=== PATIENT | male | born 1965 | race Caucasian/White ===

== ENCOUNTER 2018-02-22 10:53 | Day surgery (SDC) | payer MEDICARE, OTHER ==
[2018-02-21 10:22] VITALS: BMI 26.2
[2018-02-22 11:34] VITALS: RESP 16; TEMP 99
[2018-02-22 11:59] LABS: Basophils # (A) 0.1 k/uL (0-0.2); Basophils % (A) 0 %; Eosinophils # (A) 0.2 k/uL (0-0.7); Eosinophils % (A) 1 %; HCT 44.9 % (39.0-53.0); HGB 14.8 gm/dL (13.0-17.5); Lymphocytes # (A) 2.1 k/uL (1.0-4.8); Lymphocytes % (A) 13 %; MCH 28.8 pg (25.0-35.0); MCHC 32.9 g/dL (31.0-37.0); MCV 87.6 fL (80.0-100.0); Mean Platelet Volume 6.7; Monocytes # (A) 0.8 k/uL (0-1.0); Monocytes % (A) 5 %; Neutrophils # (A) 13.7 k/uL (1.3-7.7); Neutrophils % (A) 81 %; Platelet Count 356 k/uL (150-450); RBC 5.13 m/uL (4.30-5.90)
[2018-02-22] MEDS ORDERED: LIDOCAINE 1% INJ 10MG/ML (20 ML MDV) SQ ONE (12:23)
[2018-02-22] MEDS ORDERED: LIDOCAINE 1% 20 ML VIAL (10MG/ML) FOR IV START SQ ONE (12:31)
[2018-02-22 14:46] VITALS: BP 102/64; PULSE 69
[2018-02-23] MEDS ORDERED: ERTAPENEM 1 GM in SODIUM CHLORIDE 0.9% 50 ML IVPB ONE (06:00)
--- NOTE | 2018-02-28 11:47 | IR ---
PICC LINE PLACEMENT: HISTORY: Infection requiring long-term antibiotic therapy PROCEDURE: Ultrasound and fluoroscopic guidance of PICC line placement. COMPLICATIONS: None ANESTHESIA: 1. 1% Lidocaine locally. FINDINGS/TECHNIQUE: The procedure was explained to the patient. The risks, complications, benefits and alternatives were discussed and any questions were answered. Informed consent was obtained. The patient was placed supine on the fluoroscopic table and prepped and draped in the usual sterile fas ion. Utilizing a 21 gauge needle and sonographic and fluoroscopic guidance, access in the vein was achieved and there is placement of a 0.018 guidewire. The vein is patent. A 4-F sheath was placed o agapito the guidewire. The guidewire and dilator were removed and a 4-F. PICC line was placed through th e sheath with the tip at the level of the SVC. The sheath was removed, the catheter was flushed and sutured into position. The patient was stable throughout the procedure and remained stable upon disc harge from the Department of Radiology. The vein puncture was patent under ultrasound. A lozano scale image was obtained to document patency of the vein punctured. All elements of the maximal barrier technique were utilized. FLUOROSCOPY TIME: One image submitted and 0.2 minutes of fluoroscopy IMPRESSION: Successful PICC line placement under ultrasound and fluoroscopic guidance.
== END 2018-02-22 13:34 | disposition home health service (06) ==
LOC: CATHCVL 10:53
PROVIDERS: ATTEND Radiology Diagnostic Radiology
DX: M86.10 Other acute osteomyelitis, unspecified site (principal); Q05.9 Spina bifida, unspecified; G82.20 Paraplegia, unspecified; I25.10 Atherosclerotic heart disease of native coronary artery without angina pectoris; I10 Essential (primary) hypertension; F17.210 Nicotine dependence, cigarettes, uncomplicated; E78.5 Hyperlipidemia, unspecified; Z79.2 Long term (current) use of antibiotics; Z98.2 Presence of cerebrospinal fluid drainage device; Z79.899 Other long term (current) drug therapy
CPT/HCPCS: 36569; 76937; 77001; 85025; C1751; C1769; J2001; J1335

== ENCOUNTER → 2018-04-03 | Outpatient (CLI) | payer MEDICARE, OTHER ==
[2018-04-03 10:30] VITALS: BP 113/63; PULSE 60; RESP 16; TEMP 98.1
== END | disposition home or self-care (01) ==
LOC: PROCWHC3 09:54
PROVIDERS: ATTEND Internal Medicine Infectious Disease
DX: T82.49XA Other complication of vascular dialysis catheter, initial encounter (principal)
CPT/HCPCS: 96523

== ENCOUNTER → 2018-05-02 | Outpatient (CLI) | payer MEDICARE, OTHER ==
[~2018-05-02] MED LIST: ALTEPLASE 2 MG VIAL (CATHFLO) IV ONE
[2018-05-02 14:31] VITALS: BP 118/70; PULSE 61; RESP 16; TEMP 98.2
== END | disposition home or self-care (01) ==
LOC: PROCWHC3 13:06
PROVIDERS: ATTEND Internal Medicine Infectious Disease
DX: T82.898A Other specified complication of vascular prosthetic devices, implants and grafts, initial encounter (principal)
CPT/HCPCS: 36593; J2997

== ENCOUNTER → 2018-06-09 | Outpatient (CLI) | payer MEDICARE, OTHER ==
[2018-06-09 14:52] LABS: Basophils # (A) 0.1 k/uL (0-0.2); Basophils % (A) 1 %; Eosinophils # (A) 0.3 k/uL (0-0.7); Eosinophils % (A) 3 %; HCT 46.2 % (39.0-53.0); HGB 14.3 gm/dL (13.0-17.5); Lymphocytes # (A) 2.6 k/uL (1.0-4.8); Lymphocytes % (A) 27 %; MCH 27.7 pg (25.0-35.0); MCHC 30.9 g/dL (31.0-37.0); MCV 89.6 fL (80.0-100.0); Mean Platelet Volume 6.6; Monocytes # (A) 0.5 k/uL (0-1.0); Monocytes % (A) 5 %; Neutrophils # (A) 6.2 k/uL (1.3-7.7); Neutrophils % (A) 63 %; Platelet Count 314 k/uL (150-450); RBC 5.15 m/uL (4.30-5.90); RDW 14.7 % (11.5-15.5); WBC 9.9 k/uL (3.8-10.6)
[2018-06-09 18:50] LABS: Anion Gap 9.8 mmol/L (4.00-12.00); Calcium 9.6 mg/dL (8.7-10.3); Carbon Dioxide 21.2 mmol/L (21.6-31.8); Potassium 4.7 mmol/L (3.5-5.5)
== END | disposition home or self-care (01) ==
LOC: LABWHC1 13:55
PROVIDERS: ATTEND Internal Medicine Infectious Disease
DX: L89.324 Pressure ulcer of left buttock, stage 4 (principal); L89.314 Pressure ulcer of right buttock, stage 4; M86.652 Other chronic osteomyelitis, left thigh
CPT/HCPCS: 36415; 80048; 85025

== ENCOUNTER 2018-11-10 02:04 | Inpatient (IN) | payer MEDICARE, OTHER ==
[2018-11-10 02:43] LABS: Anisocytosis Slight; Basophils % (A) 0 %; Eosinophils # (A) 0.2 k/uL (0-0.7); Eosinophils % (A) 1 %; HCT 51.7 % (39.0-53.0); HGB 16.3 gm/dL (13.0-17.5); Lymphocytes # (A) 0.7 k/uL (1.0-4.8); Lymphocytes % (A) 4 %; MCH 26.3 pg (25.0-35.0); MCHC 31.6 g/dL (31.0-37.0); MCV 83.2 fL (80.0-100.0); Mean Platelet Volume 6.4; Monocytes # (A) 1.7 k/uL (0-1.0); Monocytes % (A) 9 %; Neutrophils # (A) 16.7 k/uL (1.3-7.7); Neutrophils % (A) 85 %; Platelet Count 375 k/uL (150-450); RBC 6.22 m/uL (4.30-5.90); RDW 16.2 % (11.5-15.5); WBC 19.5 k/uL (3.8-10.6)
[2018-11-10] MEDS ORDERED: ONDANSETRON 4 MG/2 ML VIAL IVP PRN (02:57)
[2018-11-10] MEDS ORDERED: MORPHINE SULFATE 4 MG/ML SYRINGE IV PRN (02:57)
[2018-11-10] MEDS ORDERED: NALOXONE 0.4 MG/ML 1 ML VIAL IV PRN (02:57)
--- NOTE | 2018-11-10 03:02 | ED ---
Abdominal Pain HPI - General Chief Complaint: Abdominal Pain Stated Complaint: poss pneumonia, poss bowel blockage Time Seen by Provider: 11/10/18 02:09 Source: EMS Mode of arrival: EMS Limitations: no limitations - History of Present Illness Initial Comments: This patient is 52-year-old man who is transferred here from [facility]. The patient had gone there complaining of upper abdominal pain and also of being short of breath. The symptoms had started in the afternoon. When the patient was seen in the emergency department, it was felt that his abdomen was distended, he was sent for a CAT scan which showed possibility of small bowel obstruction. The patient had an NG tube placed, which he states gave relief of most of his symptoms. The patient's abdominal pain had improved, and his shortness of breath had improved as well. The patient was also given doses of Zosyn and Flagyl then transferred here for admission. On history, the patient does not have previous abdominal surgical history. MD Complaint: abdominal pain -: hour(s) Location: periumbilical Radiation: none Migration to: no migration Severity: severe Quality: aching Consistency: now resolved Improves With: nothing Worsens With: nothing - Related Data Home Medications Medication Instructions Recorded Confirmed Atenolol [Tenormin] 100 mg PO HS 10/23/14 07/31/18 Furosemide [Lasix] 20 mg PO DAILY 10/23/14 07/31/18 Lisinopril-Hctz 10-12.5 mg 1 each PO BID 10/23/14 07/31/18 [Zestoretic 10-12.5] Oxybutynin Chloride [Ditropan XL] 10 mg PO DAILY 10/23/14 07/31/18 Pravastatin Sodium [Pravachol] 40 mg PO DAILY 10/23/14 07/31/18 Potassium Chloride [Klor-Con 20] 20 meq PO DAILY 07/15/17 07/31/18 Allergies Allergy/AdvReac Type Severity Reaction Status Date / Time No Known Allergies Allergy Verified 11/10/18 02:11 Review of Systems ROS Statement: Those systems with pertinent positive or pertinent negative responses have been documented in the HPI. ROS Other: All systems not noted in ROS Statement are negative. Constitutional: Denies: fever, chills Respiratory: Reports: as per HPI, dyspnea. Denies: cough, wheezes, hemoptysis Cardiovascular: Denies: chest pain, palpitations, orthopnea, edema, syncope Gastrointestinal: Reports: abdominal pain, nausea, constipation. Denies: vomiting, diarrhea, melena, hematochezia Genitourinary: Denies: dysuria, hematuria Musculoskeletal: Denies: back pain Skin: Denies: rash Neurological: Denies: headache, weakness, numbness Past Medical History Past Medical History: Coronary Artery Disease (CAD), Hyperlipidemia, Hypertension Additional Past Medical History / Comment(s): wounds-vj buttocks-currently receiving wound tx and antibiotics at [facility],spina bifida, [id number] w/c History of Any Multi-Drug Resistant Organisms: None Reported Past Surgical History: Adenoidectomy, Back Surgery, Tonsillectomy Additional Past Surgical History / Comment(s): lithotripsy, multiple leg,foot and toe surgeries to release tendons, colostomy with reversal as a child, 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 Past Anesthesia/Blood Transfusion Reactions: No Reported Reaction Past Psychological History: No Psychological Hx Reported Smoking Status: Current every day smoker Past Alcohol Use History: None Reported Past Drug Use History: None Reported - Past Family History Sister(s) Family Medical History: Cancer Mother Family Medical History: Coronary Artery Disease (CAD) Father Family Medical History: Myocardial Infarction ([place]) General Exam Limitations: no limitations General appearance: alert, in no apparent distress Head exam: Present: atraumatic, normocephalic Eye exam: Present: normal appearance. Absent: scleral icterus, conjunctival injection ENT exam: Present: mucous membranes dry Neck exam: Present: normal inspection Respiratory exam: Present: normal lung sounds bilaterally. Absent: respiratory distress, wheezes, rales, rhonchi, stridor Cardiovascular Exam: Present: regular rate, normal rhythm, normal heart sounds. Absent: systolic murmur, diastolic murmur, rubs, gallop GI/Abdominal exam: Present: soft. Absent: distended, tenderness, guarding, rebound, rigid, mass Extremities exam: Present: normal inspection, normal capillary refill. Absent: pedal edema, calf tenderness Back exam: Present: normal inspection. Absent: CVA tenderness (R), CVA tenderness (L) Neurological exam: Present: alert Skin exam: Present: warm, dry, intact, normal color. Absent: rash Course Vital Signs 11/10/18 11/10/18 11/10/18 02:08 03:26 04:55 Temperature 99.3 F 98 F Pulse Rate 130 H 140 H 137 H Respiratory 20 18 18 Rate Blood Pressure 133/88 127/89 132/87 O2 Sat by Pulse 92 L 93 L 96 Oximetry Medical Decision Making - Medical Decision Making Patient's 52-year-old man transferred here from [facility] with small bowel obstruction. He has been started on Flagyl and Zosyn there, given the leukocytosis and also concern for possible pneumonia/intra-abdominal infection. Additional workup is performed, given patient's continued tachycardia. Case is discussed with Dr. Cisneros, surgery on-call. Paged Dr. Stafford to discuss case, requested consult to cardiology for the persistent tachycardia - Lab Data Result diagrams: 11/10/18 02:30 11/10/18 02:30 Lab Results 11/10/18 11/10/18 11/10/18 Range/Units 02:30 02:30 02:30 WBC 19.5 H (3.8-10.6) k/uL RBC 6.22 H (4.30-5.90) m/uL Hgb 16.3 (13.0-17.5) gm/dL Hct 51.7 (39.0-53.0) % MCV 83.2 (80.0-100.0) fL MCH 26.3 (25.0-35.0) pg MCHC 31.6 (31.0-37.0) g/dL RDW 16.2 H (11.5-15.5) % Plt Count 375 (150-450) k/uL Neutrophils % 85 % Lymphocytes % 4 % Monocytes % 9 % Eosinophils % 1 % Basophils % 0 % Neutrophils # 16.7 H (1.3-7.7) k/uL Lymphocytes # 0.7 L (1.0-4.8) k/uL Monocytes # 1.7 H (0-1.0) k/uL Eosinophils # 0.2 (0-0.7) k/uL Basophils # 0.0 (0-0.2) k/uL Anisocytosis Slight D-Dimer 1.70 H (<0.60) mg/L FEU Sodium 139 (137-145) mmol/L Potassium 4.6 (3.5-5.1) mmol/L Chloride 103 (98-107) mmol/L Carbon Dioxide 19 L (22-30) mmol/L Anion Gap 17 mmol/L BUN 32 H (9-20) mg/dL Creatinine 0.66 (0.66-1.25) mg/dL Est GFR (CKD-EPI)AfAm >90 (>60 ml/min/1.73 sqM) Est GFR (CKD-EPI)NonAf >90 (>60 ml/min/1.73 sqM) Glucose 142 H (74-99) mg/dL Calcium 10.8 H (8.4-10.2) mg/dL Total Bilirubin 0.8 (0.2-1.3) mg/dL AST 23 (17-59) U/L ALT 43 (21-72) U/L Alkaline Phosphatase 197 H (38-126) U/L Troponin I (0.000-0.034) ng/mL NT-Pro-B Natriuret Pep pg/mL Total Protein 8.7 H (6.3-8.2) g/dL Albumin 5.1 H (3.5-5.0) g/dL 11/10/18 11/10/18 Range/Units 02:30 02:30 WBC (3.8-10.6) k/uL RBC (4.30-5.90) m/uL Hgb (13.0-17.5) gm/dL Hct (39.0-53.0) % MCV (80.0-100.0) fL MCH (25.0-35.0) pg MCHC (31.0-37.0) g/dL RDW (11.5-15.5) % Plt Count (150-450) k/uL Neutrophils % % Lymphocytes % % Monocytes % % Eosinophils % % Basophils % % Neutrophils # (1.3-7.7) k/uL Lymphocytes # (1.0-4.8) k/uL Monocytes # (0-1.0) k/uL Eosinophils # (0-0.7) k/uL Basophils # (0-0.2) k/uL Anisocytosis D-Dimer (<0.60) mg/L FEU Sodium (137-145) mmol/L Potassium (3.5-5.1) mmol/L Chloride (98-107) mmol/L Carbon Dioxide (22-30) mmol/L Anion Gap mmol/L BUN (9-20) mg/dL Creatinine (0.66-1.25) mg/dL Est GFR (CKD-EPI)AfAm (>60 ml/min/1.73 sqM) Est GFR (CKD-EPI)NonAf (>60 ml/min/1.73 sqM) Glucose (74-99) mg/dL Calcium (8.4-10.2) mg/dL Total Bilirubin (0.2-1.3) mg/dL AST (17-59) U/L ALT (21-72) U/L Alkaline Phosphatase (38-126) U/L Troponin I <0.012 (0.000-0.034) ng/mL NT-Pro-B Natriuret Pep 71 pg/mL Total Protein (6.3-8.2) g/dL Albumin (3.5-5.0) g/dL Disposition Clinical Impression: Abdominal pain, Small bowel obstruction, Tachycardia Disposition: ADMITTED IP TO THIS [facility] Condition: Serious
[2018-11-10 03:03] LABS: ALT 43 U/L (21-72); AST 23 U/L (17-59); African American GFR (CKD) >90 (>60 ml/min/1.73 sqM); Albumin 5.1 g/dL (3.5-5.0); Alkaline Phosphatase 197 U/L (38-126); Anion Gap 17 mmol/L; Blood Urea Nitrogen 32 mg/dL (9-20); Calcium 10.8 mg/dL (8.4-10.2); Carbon Dioxide 19 mmol/L (22-30); Chloride 103 mmol/L (98-107); Glucose 142 mg/dL (74-99); Potassium 4.6 mmol/L (3.5-5.1); Sodium 139 mmol/L (137-145); Total Bilirubin 0.8 mg/dL (0.2-1.3); Total Protein 8.7 g/dL (6.3-8.2)
[2018-11-10] MEDS ORDERED: SODIUM CHLORIDE 0.9% 1,000 ML IV ONE (03:12)
--- NOTE | 2018-11-10 03:30 | XR ---
EXAM: XR Chest, 1 View CLINICAL HISTORY: dyspnea TECHNIQUE: Frontal view of the chest. COMPARISON: No relevant prior studies available. FINDINGS: Lungs: Hypoventilatory lungs with bilateral volume loss. Bilateral peribronchial thickening. Nonspecific bilateral interstitial prominence. Pleural space: No pneumothorax. Heart: Prominent cardiomediastinal silhouette and central bronchovascular structures is likely in part due to low lung volumes. Mediastinum: See above. Bones/joints: No acute osseous abnormality. Tubes, lines and devices: Esophagogastric tube terminates in the stomach. Upper abdomen: Distended gas filled stomach. IMPRESSION: 1. Esophagogastric tube terminates in the stomach. 2. Hypoventilatory lungs. Bilateral volume loss. Infection or edema is not excluded.
[2018-11-10] MEDS: SODIUM CHLORIDE 0.9% 1,000 ML IV SCH ×2 (04:52→16:18)
--- NOTE | 2018-11-10 04:59 | CT ---
EXAM: CT Angiography Chest With Intravenous Contrast CLINICAL HISTORY: Pain TECHNIQUE: Axial computed tomographic angiography images of the chest with intravenous contrast using pulmonary embolism protocol. CTDI is 0.085, 0. 085, 1.5, 1.5, 1.5, 1.55, 10.9 mGy and DLP is 385.8 mGy-cm. This CT exam was performed using one or more of the following dose reduction techniques: automated exposure control, adjustment of the mA and/or kV according to patient size, and/or use of iterative reconstruction technique. MIP reconstructed images were created and reviewed. COMPARISON: No relevant prior studies available. FINDINGS: Artifacts: Motion. Pulmonary arteries: No central pulmonary embolus. Aorta: No acute findings. No thoracic aortic aneurysm. Lungs: Bilateral bandlike densities are favored to represent atelectasis. No suspicious pulmonary nodule. Pleural space: Unremarkable. No significant effusion. No pneumothorax. Heart: Unremarkable. No cardiomegaly. No significant pericardial effusion. Bones/joints: No acute fracture. Soft tissues: Unremarkable. Lymph nodes: Unremarkable. No enlarged lymph nodes. Stomach and bowel: Prominent gas and fluid-filled loops of small bowel in the upper abdomen. Tubes, lines and devices: Esophagogastric tube terminates in the stomach. IMPRESSION: No central pulmonary embolus.
[2018-11-10] MEDS: POTASSIUM CHLORIDE ER 20 MEQ TAB.ER PO SCH (07:17)
[2018-11-10] MEDS: ENOXAPARIN 40 MG/0.4 ML SYRINGE SQ SCH (07:19)
[2018-11-10] MEDS: metroNIDAZOLE-NS PMX 500 MG in SALINE 1 100ML.BAG IVPB SCH ×2 (07:20→16:21)
[2018-11-10] MEDS ORDERED: PRAVASTATIN SODIUM 40 MG TAB PO SCH (09:00)
[2018-11-10] MEDS ORDERED: FUROSEMIDE 20 MG TAB PO SCH (09:00)
[2018-11-10] MEDS ORDERED: OXYBUTYNIN 10 MG TAB.ER.24 PO SCH (09:00)
[2018-11-10] MEDS ORDERED: LISINOPRIL-HCTZ 10-12.5 MG 1 EACH TAB PO SCH (09:00)
[2018-11-10] MEDS ORDERED: ACETAMINOPHEN TAB 325 MG TAB PO PRN (11:34)
[2018-11-10] MEDS ORDERED: ATENOLOL 25 MG TAB PO SCH (11:45)
[2018-11-10] MEDS: PIPERACILLIN-TAZOBACTAM 3.375 GM in SODIUM CHLORIDE 0.9% 100 ML IVPB SCH ×2 (12:03→18:12)
--- NOTE | 2018-11-10 14:05 | P.GSCN ---
<Keli Price - Last Filed: 11/10/18 14:04> History of Present Illness Consult date: 11/10/18 Reason for Consult: small bowel obstruction Requesting physician: Edmundo Holm History of present illness: CHIEF COMPLAINT: small bowel obstruction HISTORY OF PRESENT ILLNESS: 52-year-old male who was transferred from [facility] yesterday secondary to small bowel obstruction. Patient examined this morning at the bedside. He reports he was in his usual state of health until yesterday he began having abdominal pain and noticed significant abdominal distention. He reports nausea but no episodes of vomiting. He reports having a loose bowel movement yesterday. Patient with loose bowel movement this morning as well. CT abdomen and pelvis performed at [facility] revealed distended fluid-filled stomach and small bowel loops with relatively gradual transition to more decompressed distal small bowel loops. Differential considerations include enteritis, ileus, or obstruction. Fluid in the colon, can be seen with diarrheal state. Mild rectal wall thickening or underdistention. Small free fluid. NG tube was placed at [place]. Patient reports resolution of abdominal pain and improvement in abdominal distention after NG tube placement. He denies abdominal pain this morning. Denies N/V. PAST MEDICAL HISTORY: See list. PAST SURGICAL HISTORY: See list. MEDICATIONS: See list. ALLERGIES: See list. SOCIAL HISTORY: No illicit drug use. REVIEW OF SYSTEMS: CONSTITUTIONAL: Denies fever or chills. HEENT: Denies blurred vision, vision changes, or eye pain. Denies hemoptysis ENDOCRINE: Denies heat or cold intolerance. CARDIOVASCULAR: Denies chest pain or pressure. RESPIRATORY: Reports shortness of breath. GASTROINTESTINAL: Refer to HPI for pertinent findings. NEURO: Denies history of seizures. PSYCH: No depression or suicidal ideation HEMATOLOGIC: Denies bleeding disorders. LYMPHATIC: The patient denies any lumps and bumps around the neck. GENITOURINARY: Denies any blood in urine or increased urinary frequency. MUSCULOSKELETAL: Denies myalgias. Denies joint swelling. Denies decreased range of motion beyond patients baseline-patient is paraplegic. SKIN: Denies pruitis. Denies rash. PHYSICAL EXAM: VITAL SIGNS: Reviewed. Tachycardic. GENERAL: Well-developed in no acute distress. HEENT: NG to LIS with small amount of bilious drainage. No sclera icterus. Extraocular movements grossly intact. Moist buccal mucosa. Head is atraumatic, normocephalic. Hears conversational speech. No nasal drainage. NECK: Supple without lymphadenopathy. CHEST: Non-labored respirations and equal bilateral excursions. CARDIOVASCULAR: Tachycardic. Palpable 2+ radial pulses. ABDOMEN: Soft. Mild abdominal distention. Nontender. Positive bowel sounds. Patient with old surgical scars to left lower quadrant and right lower quadrant. MUSCULOSKELETAL: Paraplegic. No clubbing, cyanosis or edema. NEUROLOGIC: No focal or lateralizing signs. Cranial nerves II through XII grossly intact. PSYCH: Appropriate affect. Alert and oriented to person, place and time. SKIN: Well perfused. Good skin turgor. LABORATORY DATA: WBC 19.5. Hemoglobin 16.3. D-dimer 1.70. Lactic acid 1.3. ASSESSMENT: 1. Small bowel obstruction 2. Sepsis, present on admission, patient presented with leukocytosis and tachycardia 3. Bilateral lung opacities with right upper lung atelectasis/consolidation. Possible pneumonia 4. History of colostomy with reversal as a child PLAN: 1. Continue antibiotics. Monitor WBC 2. Continue IV fluids 3. DC NG 4. Start clear liquid diet Nurse practitioner note has been reviewed by physician. Signing provider agrees with the documented findings, assessment, and plan of care. Past Medical History Past Medical History: Coronary Artery Disease (CAD), Hyperlipidemia, Hypertension Additional Past Medical History / Comment(s): wounds-vj buttocks-currently receiving wound tx and antibiotics at [facility],spina bifida, [id number] w/c History of Any Multi-Drug Resistant Organisms: None Reported Past Surgical History: Adenoidectomy, Back Surgery, Tonsillectomy Additional Past Surgical History / Comment(s): lithotripsy, multiple leg,foot and toe surgeries to release tendons, colostomy with reversal as a child, 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 Past Anesthesia/Blood Transfusion Reactions: No Reported Reaction Past Psychological History: No Psychological Hx Reported Smoking Status: Current every day smoker Past Alcohol Use History: None Reported Past Drug Use History: None Reported - Past Family History Sister(s) Family Medical History: Cancer Mother Family Medical History: Coronary Artery Disease (CAD) Father Family Medical History: Myocardial Infarction (DE) Medications and Allergies Home Medications Medication Instructions Recorded Confirmed Type Potassium Chloride [Klor-Con 20] 20 meq PO DAILY 07/15/17 11/10/18 History Acetaminophen Tab [Tylenol] 650 mg PO Q4H PRN 11/10/18 11/10/18 History Atenolol 25 mg PO DAILY 11/10/18 11/10/18 History Atorvastatin [Lipitor] 10 mg PO HS 11/10/18 11/10/18 History Famotidine [Pepcid] 20 mg PO DAILY 11/10/18 11/10/18 History Heparin Sodium,Porcine [Heparin 5,000 unit SQ Q8HR 11/10/18 11/10/18 History Sodium] Oxybutynin Xl [Ditropan Xl] 5 mg PO BID@0700,1900 11/10/18 11/10/18 History Sennosides-Docusate Sodium 1 tab PO BID@0700,1700 11/10/18 11/10/18 History [Senokot-S] Allergies Allergy/AdvReac Type Severity Reaction Status Date / Time No Known Allergies Allergy Verified 11/10/18 10:04 Surgical - Exam Vital Signs Temp Pulse Resp BP Pulse Ox 99.3 F 130 H 20 133/88 92 L 11/10/18 02:08 11/10/18 02:08 11/10/18 02:08 11/10/18 02:08 11/10/18 02:08 Results - Labs 11/10/18 02:30 11/10/18 02:30 Abnormal Lab Results - Last 24 Hours (Table) 11/10/18 11/10/18 11/10/18 Range/Units 02:30 02:30 02:30 WBC 19.5 H (3.8-10.6) k/uL RBC 6.22 H (4.30-5.90) m/uL RDW 16.2 H (11.5-15.5) % Neutrophils # 16.7 H (1.3-7.7) k/uL Lymphocytes # 0.7 L (1.0-4.8) k/uL Monocytes # 1.7 H (0-1.0) k/uL D-Dimer 1.70 H (<0.60) mg/L FEU Carbon Dioxide 19 L (22-30) mmol/L BUN 32 H (9-20) mg/dL Glucose 142 H (74-99) mg/dL Calcium 10.8 H (8.4-10.2) mg/dL Alkaline Phosphatase 197 H (38-126) U/L Total Protein 8.7 H (6.3-8.2) g/dL Albumin 5.1 H (3.5-5.0) g/dL Diabetes panel 11/10/18 Range/Units 02:30 Sodium 139 (137-145) mmol/L Potassium 4.6 (3.5-5.1) mmol/L Chloride 103 (98-107) mmol/L Carbon Dioxide 19 L (22-30) mmol/L BUN 32 H (9-20) mg/dL Creatinine 0.66 (0.66-1.25) mg/dL Glucose 142 H (74-99) mg/dL Calcium 10.8 H (8.4-10.2) mg/dL AST 23 (17-59) U/L ALT 43 (21-72) U/L Alkaline Phosphatase 197 H (38-126) U/L Total Protein 8.7 H (6.3-8.2) g/dL Albumin 5.1 H (3.5-5.0) g/dL Calcium panel 11/10/18 Range/Units 02:30 Calcium 10.8 H (8.4-10.2) mg/dL Albumin 5.1 H (3.5-5.0) g/dL Pituitary panel 11/10/18 Range/Units 02:30 Sodium 139 (137-145) mmol/L Potassium 4.6 (3.5-5.1) mmol/L Chloride 103 (98-107) mmol/L Carbon Dioxide 19 L (22-30) mmol/L BUN 32 H (9-20) mg/dL Creatinine 0.66 (0.66-1.25) mg/dL Glucose 142 H (74-99) mg/dL Calcium 10.8 H (8.4-10.2) mg/dL Adrenal panel 11/10/18 Range/Units 02:30 Sodium 139 (137-145) mmol/L Potassium 4.6 (3.5-5.1) mmol/L Chloride 103 (98-107) mmol/L Carbon Dioxide 19 L (22-30) mmol/L BUN 32 H (9-20) mg/dL Creatinine 0.66 (0.66-1.25) mg/dL Glucose 142 H (74-99) mg/dL Calcium 10.8 H (8.4-10.2) mg/dL Total Bilirubin 0.8 (0.2-1.3) mg/dL AST 23 (17-59) U/L ALT 43 (21-72) U/L Alkaline Phosphatase 197 H (38-126) U/L Total Protein 8.7 H (6.3-8.2) g/dL Albumin 5.1 H (3.5-5.0) g/dL <Caroline White - Last Filed: 11/10/18 16:55> History of Present Illness History of present illness: At time of assessment, patient is passing moderate flatus and had a large bowel movement without blood witnessed by me. Patient clinically reports improvement of symptoms. NG tube discontinued by me at bedside. May start clear liquid diet. Surgical - Exam Vital Signs Temp Pulse Resp BP Pulse Ox 99.3 F 130 H 20 133/88 92 L 11/10/18 02:08 11/10/18 02:08 11/10/18 02:08 11/10/18 02:08 11/10/18 02:08 Results - Labs 11/10/18 02:30 11/10/18 02:30 Abnormal Lab Results - Last 24 Hours (Table) 11/10/18 11/10/18 11/10/18 Range/Units 02:30 02:30 02:30 WBC 19.5 H (3.8-10.6) k/uL RBC 6.22 H (4.30-5.90) m/uL RDW 16.2 H (11.5-15.5) % Neutrophils # 16.7 H (1.3-7.7) k/uL Lymphocytes # 0.7 L (1.0-4.8) k/uL Monocytes # 1.7 H (0-1.0) k/uL D-Dimer 1.70 H (<0.60) mg/L FEU Carbon Dioxide 19 L (22-30) mmol/L BUN 32 H (9-20) mg/dL Glucose 142 H (74-99) mg/dL Calcium 10.8 H (8.4-10.2) mg/dL Alkaline Phosphatase 197 H (38-126) U/L Total Protein 8.7 H (6.3-8.2) g/dL Albumin 5.1 H (3.5-5.0) g/dL Diabetes panel 11/10/18 Range/Units 02:30 Sodium 139 (137-145) mmol/L Potassium 4.6 (3.5-5.1) mmol/L Chloride 103 (98-107) mmol/L Carbon Dioxide 19 L (22-30) mmol/L BUN 32 H (9-20) mg/dL Creatinine 0.66 (0.66-1.25) mg/dL Glucose 142 H (74-99) mg/dL Calcium 10.8 H (8.4-10.2) mg/dL AST 23 (17-59) U/L ALT 43 (21-72) U/L Alkaline Phosphatase 197 H (38-126) U/L Total Protein 8.7 H (6.3-8.2) g/dL Albumin 5.1 H (3.5-5.0) g/dL Calcium panel 11/10/18 Range/Units 02:30 Calcium 10.8 H (8.4-10.2) mg/dL Albumin 5.1 H (3.5-5.0) g/dL Pituitary panel 11/10/18 Range/Units 02:30 Sodium 139 (137-145) mmol/L Potassium 4.6 (3.5-5.1) mmol/L Chloride 103 (98-107) mmol/L Carbon Dioxide 19 L (22-30) mmol/L BUN 32 H (9-20) mg/dL Creatinine 0.66 (0.66-1.25) mg/dL Glucose 142 H (74-99) mg/dL Calcium 10.8 H (8.4-10.2) mg/dL Adrenal panel 11/10/18 Range/Units 02:30 Sodium 139 (137-145) mmol/L Potassium 4.6 (3.5-5.1) mmol/L Chloride 103 (98-107) mmol/L Carbon Dioxide 19 L (22-30) mmol/L BUN 32 H (9-20) mg/dL Creatinine 0.66 (0.66-1.25) mg/dL Glucose 142 H (74-99) mg/dL Calcium 10.8 H (8.4-10.2) mg/dL Total Bilirubin 0.8 (0.2-1.3) mg/dL AST 23 (17-59) U/L ALT 43 (21-72) U/L Alkaline Phosphatase 197 H (38-126) U/L Total Protein 8.7 H (6.3-8.2) g/dL Albumin 5.1 H (3.5-5.0) g/dL
--- NOTE | 2018-11-10 14:53 | CONS ---
CONSULTATION This patient is seen in consultation for the evaluation of sinus tachycardia. Patient's electronic medical records reviewed. This patient was transferred from [facility] with a complaint of upper abdominal pain and abdominal distention as well as shortness of breath. The patient's symptoms started in the afternoon. He did not had any significant nausea or vomiting. CAT scan of the abdomen showed possible small bowel obstruction. Patient had a NG tube placed in which gave him complete relief of the pain and subsequently he was transferred over here. Patient's NG tube is discontinued. He has been on antibiotics. He denies any fever or chills. Denies any cough. Denies any shortness of breath. The patient does not have any cardiac history of diabetes or hypertension. Patient does not have any prior cardiac history. Patient denies any history of myocardial infarction. Patient has been on atenolol and lisinopril for possible high blood pressure. PAST MEDICAL HISTORY: Includes a history of hypertension, hyperlipidemia, history of spina bifida, myelodysplasia and paraplegia, appendicectomy, back surgery, tonsillectomy, lithotripsy, multiple leg, foot and toe surgeries. PHYSICAL EXAMINATION: At present reveals a 52-year-old gentleman who does not appear to be in any acute distress. Patient had a low-grade temperature of 99, heart rate remains in the range of 130 to 140. HEENT and neck examination is negative. Chest is symmetrical. Heart, the first and second heart sounds are normal. No murmurs are noted. Lungs are clinically clear to auscultation and percussion. Abdomen is soft. Extremities, there is no evidence of any leg edema. Patient's electrolytes are normal, creatinine is 0.6 and white count is 19,500. Patient's D-dimer was elevated and lactic acid level was 1.7. Patient's proBNP level is 71. Chest x-ray does not show any evidence of significant failure. CT scan of the chest was negative for pulmonary embolism. FINAL IMPRESSION: This patient has a persistent sinus tachycardia which is difficult to explain. Patient has a history of hypertension and has been on beta andrea and JORGE inhibitor. The patient is not in any overt heart failure. His BNP level is normal. Whether this is due to underlying hypovolemia or an infection is a possibility. RECOMMENDATIONS: We will obtain 2 blood cultures. Continue IV fluids at 100 mL/hour. We will discontinue atenolol and start the patient on Lopressor 25 mg q.8 hourly and T4 and TSH will be obtained. Echo and Doppler study will be done to assess the left ventricular systolic function. AUR[facility]A / SANTOS: [id number] /
[2018-11-10] MEDS: METOPROLOL TARTRATE 25 MG TAB PO SCH ×2 (16:21→22:45)
[2018-11-10] MEDS: SENNOSIDES-DOCUSATE SODIUM 1 EACH TAB PO SCH (16:37)
[2018-11-10 16:51] LABS: T4, Free (Free Thyroxine) 1.42 ng/dL (0.78-2.19)
--- NOTE | 2018-11-10 20:58 | P.HPIM ---
History of Present Illness H&P Date: 11/10/18 Chief Complaint: Small bowel obstruction Presenting complaint: Abdominal pain History of present complaint: This is a very pleasant 52-year-old patient who follows Dr. oJse Cano. Chronic stable medical conditions include hypertension, hyperlipidemia, spinal bifida. Patient's cannot use his legs and has no sensation. Patient has a chronic catheter and bowels have to be manually evacuated. Patient also had buttock wounds that had surgery done by Dr. Trujillo. Patient now presents with one-day history of increasing abdominal pain. No fever no chills. Some nausea. This is followed a small bowel obstruction. NG tube was placed. Patient initially was at [facility] where he was transferred here. Dr. White from general surgery was consulted. Patient lives with his niece and a brother. The niece provides care for him. Patient is feeling better off the use of NG tube and suction. Review of systems: GEN.: Tired EYES: None HEENT: None NECK: None RESPIRATORY: None CARDIOVASCULAR: None GASTROINTESTINAL: As above GENITOURINARY: None MUSCULOSKELETAL: None LYMPHATICS: None HEMATOLOGICAL: None PSYCHIATRY: Anxious NEUROLOGICAL: Contractures of both lower extremity with no sensation patient has no control of the urine and bowel Past medical history include: Hypertension, hyperlipidemia, skin graft on the buttocks, spinal bifida, with paraplegia, wheelchair bound, Social history: Smokes half pack daily for about 30 years stopped about 2 weeks ago. No alcohol. Lives with his niece and the brother. Physical examination: VITAL SIGNS: 99.3, 130, respiratory, blood pressure 133/88, and 92% room air GENERAL: Average built, lying in bed, uncomfortable. EYES: Pupils equal. Conjunctiva normal. HEENT: External appearance of nose and ears normal, oral cavity grossly dry with NG tube in place. NECK: JVD not raised; masses not palpable. HEART: First and second heart sounds are normal; no edema. LUNGS: Respiratory rate normal; clear to auscultation. ABDOMEN: Soft, generalized tenderness mild distention, liver spleen not palpable, no masses palpable. PSYCH: Alert and oriented x3; mood and affect protectionl. NEUROLOGICAL: Cranial nerves grossly intact; no facial asymmetry, contraction of the lower limbs with no sensation. LYMPHATICS: No lymph nodes palpable in the axilla and neck Investigations, the clinical context: White count 19.5, hemoglobin 16.3, platelets 375, potassium 4.6, BUN 32, creatinine 0.66 Computed tomography scan from the outside facility showed evidence of gastric d istention and small bowel obstruction EKG tracing personally reviewed by me shows sinus tachycardia Assessment: Acute small bowel obstruction in a patient with prior abdominal surgery with NG tube in place -Essential hypertension -Hyperlipidemia -Chronic spina bifida with chronic paraplegia -Chronic medical debility patient is wheelchair bound -Leukocytosis from stress -Sinus tachycardia probably from fluid deficit -Chronic neurogenic constipation, for which patient is scheduled manual evacuati on -Chronic neurogenic bladder, with chronic Porter catheter -Atelectasis. Does not have pneumonia. Plan: NG tube in place. IV fluids are started. Because of persistent tachycardia , cardiology was consulted. Care was discussed with the patient. Question were answered. Dr. White results of the case. Patient is getting IV fluids, increase the same. Past Medical History Past Medical History: Coronary Artery Disease (CAD), Hyperlipidemia, Hypertens ion Additional Past Medical History / Comment(s): wounds-vj buttocks-currently receiving wound tx and antibiotics at [facility],spina bifida, [id number] w/c History of Any Multi-Drug Resistant Organisms: None Reported Past Surgical History: Adenoidectomy, Back Surgery, Tonsillectomy Additional Past Surgical History / Comment(s): lithotripsy, multiple leg,foot and toe surgeries to release tendons, colostomy with reversal as a child, 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 Past Anesthesia/Blood Transfusion Reactions: No Reported Reaction Past Psychological History: No Psychological Hx Reported Smoking Status: Current every day smoker Past Alcohol Use History: None Reported Past Drug Use History: None Reported - Past Family History Sister(s) Family Medical History: Cancer Mother Family Medical History: Coronary Artery Disease (CAD) Father Family Medical History: Myocardial Infarction (NH) Medications and Allergies Home Medications Medication Instructions Recorded Confirmed Type Potassium Chloride [Klor-Con 20] 20 meq PO DAILY 07/15/17 11/10/18 History Acetaminophen Tab [Tylenol] 650 mg PO Q4H PRN 11/10/18 11/10/18 History Atenolol 25 mg PO DAILY 11/10/18 11/10/18 History Atorvastatin [Lipitor] 10 mg PO HS 11/10/18 11/10/18 History Famotidine [Pepcid] 20 mg PO DAILY 11/10/18 11/10/18 History Heparin Sodium,Porcine [Heparin 5,000 unit SQ Q8HR 11/10/18 11/10/18 History Sodium] Oxybutynin Xl [Ditropan Xl] 5 mg PO BID@0700,1900 11/10/18 11/10/18 History Sennosides-Docusate Sodium 1 tab PO BID@0700,1700 11/10/18 11/10/18 History [Senokot-S] Allergies Allergy/AdvReac Type Severity Reaction Status Date / Time No Known Allergies Allergy Verified 11/10/18 10:04 Physical Exam Vitals: Vital Signs Temp Pulse Pulse Resp BP BP BP 11/10/18 16:17 98.8 F 120 H 16 118/73 11/10/18 08:55 99.3 F 150 H 128/84 11/10/18 06:09 99.2 F 143 H 16 124/81 11/10/18 04:55 98 F 137 H 18 132/87 11/10/18 03:26 140 H 18 127/89 11/10/18 02:08 99.3 F 130 H 20 133/88 Pulse Ox 11/10/18 16:17 95 11/10/18 08:55 94 L 11/10/18 06:09 94 L 11/10/18 04:55 96 11/10/18 03:26 93 L 11/10/18 02:08 92 L Intake and Output 11/10/18 11/10/18 11/10/18 06:59 14:59 22:59 Intake Total 800 240 Output Total 1100 Balance -1100 800 240 Intake: IV 800 Sodium Chloride 0.9% 1, 800 000 ml @ 100 mls/hr IV . Q10H [facility] Rx#:[id number] Oral 240 Output: Gastric Drainage 1100 Other: Voiding Method Indwelling Catheter Indwelling Catheter # Bowel Movements 1 1 Weight 58.967 kg Results CBC & Chem 7: 11/10/18 02:30 11/10/18 02:30 Labs: Abnormal Lab Results - Last 24 Hours (Table) 11/10/18 11/10/18 11/10/18 Range/Units 02:30 02:30 02:30 WBC 19.5 H (3.8-10.6) k/uL RBC 6.22 H (4.30-5.90) m/uL RDW 16.2 H (11.5-15.5) % Neutrophils # 16.7 H (1.3-7.7) k/uL Lymphocytes # 0.7 L (1.0-4.8) k/uL Monocytes # 1.7 H (0-1.0) k/uL D-Dimer 1.70 H (<0.60) mg/L FEU Carbon Dioxide 19 L (22-30) mmol/L BUN 32 H (9-20) mg/dL Glucose 142 H (74-99) mg/dL Calcium 10.8 H (8.4-10.2) mg/dL Alkaline Phosphatase 197 H (38-126) U/L Total Protein 8.7 H (6.3-8.2) g/dL Albumin 5.1 H (3.5-5.0) g/dL Thrombosis Risk Factor Assmnt - Choose All That Apply Any of the Below Risk Factors Present?: Yes Each Factor Represents 1 point: Age 41-60 years, Medical pt on bed rest Other Risk Factors: No Thrombosis Risk Factor Assessment Total Risk Factor Score: 2 Thrombosis Risk Factor Assessment Level: Low Risk
[2018-11-10] MEDS ORDERED: ATENOLOL 50 MG TAB PO SCH (21:00)
[2018-11-10] MEDS ORDERED: ATORVASTATIN 10 MG TAB PO SCH (21:00)
[2018-11-10] MEDS: LACTATED RINGERS 1,000 ML IV SCH (21:35)
[2018-11-11] MEDS: metroNIDAZOLE-NS PMX 500 MG in SALINE 1 100ML.BAG IVPB SCH ×3 (00:31→16:06)
[2018-11-11] MEDS: PIPERACILLIN-TAZOBACTAM 3.375 GM in SODIUM CHLORIDE 0.9% 100 ML IVPB SCH ×2 (01:42→09:00)
[2018-11-11] MEDS: LACTATED RINGERS 1,000 ML IV SCH ×2 (04:37→12:19)
[2018-11-11] MEDS: METOPROLOL TARTRATE 25 MG TAB PO SCH (06:28)
[2018-11-11] MEDS ORDERED: OXYBUTYNIN XL 5 MG TAB.ER.24 PO SCH (07:00)
[2018-11-11 08:17] LABS: African American GFR (CKD) >90 (>60 ml/min/1.73 sqM); Anion Gap 11 mmol/L; Blood Urea Nitrogen 23 mg/dL (9-20); Calcium 8.6 mg/dL (8.4-10.2); Carbon Dioxide 19 mmol/L (22-30); Chloride 108 mmol/L (98-107); Glucose 96 mg/dL (74-99); Potassium 2.9 mmol/L (3.5-5.1); Sodium 138 mmol/L (137-145)
--- NOTE | 2018-11-11 08:26 | ECHOF ---
Referral Reason:tachycardia MEASUREMENTS -------- HEIGHT: 157.5 cm WEIGHT: 59.0 kg BP: 128/84 RVIDd: 2.4 cm (< 3.3) IVSd: 1.1 cm (0.6 - 1.1) LVIDd: 4.1 cm (3.9 - 5.3) LVPWd: 1.0 cm (0.6 - 1.1) IVSs: 1.2 cm LVIDs: 2.9 cm LVPWs: 1.4 cm LA Diam: 3.3 cm (2.7 - 3.8) LAESV Index (A-L): 18.20 ml/m Ao Diam: 3.3 cm (2.0 - 3.7) AV Cusp: 1.6 cm (1.5 - 2.6) MV EXCURSION: 18.829 mm (> 18.000) MV EF SLOPE: 128 mm/s (70 - 150) EPSS: 0.9 cm MV E Omkar: 1.12 m/s MV DecT: 147 ms MV A Omkar: 1.21 m/s MV E/A Ratio: 0.92 FINDINGS -------- Resting tachycardia (HR>100bpm). This was a technically adequate study. The left ventricular size is normal. There is borderline concentric left ventricular hypertrophy. Overall left ventricular systolic function is normal with, an EF between 60 - 65 %. The right ventricle is normal in size. Normal LA size by volume 22+/-6 ml/m2. The right atrium is normal in size. Interatrial and interventricular septum intact. The aortic valve is trileaflet and appears structurally normal. The mitral valve is normal. The tricuspid valve appears structurally normal. The pulmonic valve was not well visualized. The aortic root size is normal. IVC Not well visulized. There is no pericardial effusion. CONCLUSIONS -------- 1. Resting tachycardia (HR>100bpm). 2. This was a technically adequate study. 3. The left ventricular size is normal. 4. There is borderline concentric left ventricular hypertrophy. 5. Overall left ventricular systolic function is normal with, an EF between 60 - 65 %. 6. The right ventricle is normal in size. 7. Normal LA size by volume 22+/-6 ml/m2. 8. The right atrium is normal in size. 9. Interatrial and interventricular septum intact. 10. The aortic valve is trileaflet and appears structurally normal. 11. The mitral valve is normal. 12. The tricuspid valve appears structurally normal. 13. The pulmonic valve was not well visualized. 14. The aortic root size is normal. 15. IVC Not well visulized. 16. There is no pericardial effusion. PRESSER FIRST: Esthela Knowles RDCS
[2018-11-11 08:35] LABS: Anisocytosis Slight; Basophils # (A) 0.1 k/uL (0-0.2); Basophils % (A) 1 %; Eosinophils # (A) 0.5 k/uL (0-0.7); Eosinophils % (A) 6 %; HCT 39.5 % (39.0-53.0); Hypochromasia Slight; Lymphocytes # (A) 0.8 k/uL (1.0-4.8); Lymphocytes % (A) 10 %; MCH 27.6 pg (25.0-35.0); MCHC 33.2 g/dL (31.0-37.0); MCV 83.1 fL (80.0-100.0); Mean Platelet Volume 7.6; Monocytes # (A) 1.2 k/uL (0-1.0); Monocytes % (A) 15 %; Neutrophils # (A) 5.2 k/uL (1.3-7.7); Neutrophils % (A) 66 %; Platelet Count 274 k/uL (150-450); RBC 4.76 m/uL (4.30-5.90); RDW 16.6 % (11.5-15.5); WBC 7.9 k/uL (3.8-10.6)
[2018-11-11 08:43] LABS: HGB 13.1 gm/dL (13.0-17.5)
[2018-11-11] MEDS: ENOXAPARIN 40 MG/0.4 ML SYRINGE SQ SCH (09:00)
[2018-11-11] MEDS: POTASSIUM CHLORIDE ER 20 MEQ TAB.ER PO SCH ×7 (09:00→16:06)
[2018-11-11] MEDS ORDERED: FAMOTIDINE 20 MG TAB PO SCH (09:00)
[2018-11-11] MEDS: SENNOSIDES-DOCUSATE SODIUM 1 EACH TAB PO SCH ×2 (09:00→09:08)
[2018-11-11 09:01] VITALS: BP 140/83; PULSE 127; RESP 15; TEMP 98.2
[2018-11-11] MEDS ORDERED: Potassium Replacement Protocol 1 EACH MISC MISCELLANE PRN ×2 (09:34→11:57)
--- NOTE | 2018-11-11 10:38 | P.PN ---
Subjective Progress Note Date: 11/11/18 CHIEF COMPLAINT: Small bowel obstruction HISTORY OF PRESENT ILLNESS: The patient is a 52-year-old male with paraplegia who presented with acute onset small bowel obstruction. He has history of multiple abdominal surgeries. His abdominal pain is completely resolved. He is tolerating diet. He is passing flatus and having bowel movements. ROS: No reports of nausea and vomiting. No fevers or chills. No new chest pain. No productive sputum PHYSICAL EXAM: VITAL SIGNS: Reviewed CONSTITUTIONAL: Well developed and in no acute distress. EYES: Conjuctivae without sclera icterus. Extraocular movements grossly intact. HEAD, EARS, NOSE, THROAT: Moist buccal mucosa. Head is atraumatic, normoce phalic. Hears conversational speech. No nasal drainage. NECK: Supple. No thyroidomegaly. RESPIRATORY: Non-labored respirations and equal bilateral excursions. CARDIOVASCULAR: Palpable 2+ radial pulses. Regular rate. Regular rhythm. ABDOMEN: Soft. No peritonitis. Nondistended. MUSCULOSKELETAL: Paraplegia. SKIN: Good skin turgor. Well perfused. NEUROLOGIC: Cranial nerves I through XII grossly intact. No focal or lateralizing signs. Paraplegia PSYCH: Appropriate affect. Alert and oriented to person, place and time. CLINCAL LABS: White blood cell count normal ASSESSMENT: 1. Small bowel obstruction PLAN: 1. Diet as tolerated 2. Agreeable for discharge. Objective - Vital Signs Vital signs: Vital Signs Temp 98.2 F 11/11/18 07:00 Pulse 127 H 11/11/18 07:00 Resp 15 11/11/18 07:00 BP 140/83 11/11/18 07:00 Pulse Ox 93 L 11/11/18 07:00 Intake & Output 11/10/18 11/11/18 11/11/18 18:59 06:59 18:59 Intake Total 1040 1350 100 Balance 1040 1350 100 Intake: IV 800 Sodium Chloride 0.9% 1, 800 000 ml @ 100 mls/hr IV . Q10H [facility] Rx#:[id number] Intake, IV Titration 1350 Amount Lactated Ringers 1,000 ml 1050 @ 150 mls/hr IV .Q6H40M [facility] Rx#:[id number] Sodium Chloride 0.9% 1, 300 000 ml @ 100 mls/hr IV . Q10H [facility] Rx#:[id number] Oral 240 100 Other: Voiding Method Indwelling Catheter Indwelling Catheter # Bowel Movements 1 1 2 - Labs CBC & Chem 7: 11/11/18 07:23 11/11/18 07:23 Labs: Abnormal Lab Results - Last 24 Hours (Table) 11/11/18 11/11/18 Range/Units 07:23 07:23 RDW 16.6 H (11.5-15.5) % Lymphocytes # 0.8 L (1.0-4.8) k/uL Monocytes # 1.2 H (0-1.0) k/uL Potassium 2.9 L (3.5-5.1) mmol/L Chloride 108 H (98-107) mmol/L Carbon Dioxide 19 L (22-30) mmol/L BUN 23 H (9-20) mg/dL Creatinine 0.53 L (0.66-1.25) mg/dL
[2018-11-11] MEDS ORDERED: METOPROLOL TARTRATE 25 MG TAB PO ONE (12:15)
--- NOTE | 2018-11-11 13:09 | P.PN ---
Subjective Progress Note Date: 11/11/18 This is a 52-year-old male with past medical history of spina bifida with chronic decubitus ulcer and osteomyelitis to the sacral area status post recent flap procedure done at [facility] with Dr. Trujillo. Patient is currently residing at extended care facility. Patient was brought into the hospital due to upper abdominal pain and distention thought to be as partial bowel obstruction. He is status post NG tube placement and subsequent removal with improvement of his symptoms. Patient's tolerating diet with no nausea or vomiting. He is passing gas and had a bowel movement. Patient has been cleared by general surgery for transfer back to his extended care facility. Cardiology has been asked to see the patient regarding persistent sinus tachycardia. Yesterday he was started on Lopressor 25 mg every 8 hours. This morning his heart rate is running in the 120s with any activity but at rest he will be at about 100. Blood pressure 140/83 and pulse ox 93% on room air. Echocardiogram reveals EF of 60-65%. TSH 1.430, free T4 1 0.42. Potassium is 2.9 and will be replaced, creatinine 0.53. Patient denies having any chest pain, shortness of breath, palpitations. Gen: This is a 52-year-old male. He is resting in bed appears to be comfortable and in no acute distress. HEENT: Head is atraumatic, normocephalic. Pupils equal, round. Sclerae is anicteric. NECK: Supple. No JVD. No lymphadenopathy. No thyromegaly. LUNGS: Clear to auscultation. No wheezes or rhonchi. No intercostal retractions. HEART: Regular rate and rhythm. No murmur. Tachycardic. ABDOMEN: Soft. Bowel sounds are present. No masses. No tenderness. Porter catheter draining clear elie urine. EXTREMITIES: No pedal edema. No calf tenderness. NEUROLOGICAL: Patient is awake, alert and oriented x3. Paraplegia noted. Assessment: Sinus tachycardia, improved from yesterday. Thyroid studies are normal and no structural deformities found on echocardiogram. Patient may have underlying autonomic dysfunction secondary to his spina bifida contributing to resting tachycardia. Plan: Increase Lopressor to 50 mg orally every 8 hours. Patient is [facility] perspective. Further recommendations to follow based upon clinical course. Nurse practitioner note has been reviewed, I agree with documented findings and plan of care. Patient was seen and examined. Objective - Vital Signs Vital signs: Vital Signs Temp 98.2 F 11/11/18 07:00 Pulse 127 H 11/11/18 07:00 Resp 15 11/11/18 07:00 BP 140/83 11/11/18 07:00 Pulse Ox 93 L 11/11/18 07:00 Intake & Output 11/10/18 11/11/18 11/11/18 18:59 06:59 18:59 Intake Total 1040 1350 100 Balance 1040 1350 100 Intake: IV 800 Sodium Chloride 0.9% 1, 800 000 ml @ 100 mls/hr IV . Q10H [facility] Rx#:[id number] Intake, IV Titration 1350 Amount Lactated Ringers 1,000 ml 1050 @ 150 mls/hr IV .Q6H40M [facility] Rx#:[id number] Sodium Chloride 0.9% 1, 300 000 ml @ 100 mls/hr IV . Q10H [facility] Rx#:[id number] Oral 240 100 Other: Voiding Method Indwelling Catheter Indwelling Catheter Indwelling Catheter # Bowel Movements 1 1 3 - Labs CBC & Chem 7: 11/11/18 07:23 11/11/18 07:23 Labs: Abnormal Lab Results - Last 24 Hours (Table) 11/11/18 11/11/18 Range/Units 07:23 07:23 RDW 16.6 H (11.5-15.5) % Lymphocytes # 0.8 L (1.0-4.8) k/uL Monocytes # 1.2 H (0-1.0) k/uL Potassium 2.9 L (3.5-5.1) mmol/L Chloride 108 H (98-107) mmol/L Carbon Dioxide 19 L (22-30) mmol/L BUN 23 H (9-20) mg/dL Creatinine 0.53 L (0.66-1.25) mg/dL
--- NOTE | 2018-11-11 13:55 | P.DS ---
Providers Date of admission: 11/10/18 02:57 Expected date of discharge: 11/11/18 Attending physician: Shamar Stafford Consults: 11/10/18 02:59 Consult Physician Routine Consulting Provider: Caroline White Consult Reason/Comments: small bowel obstruction Do you want consulting provider notified?: Already Contacted 11/10/18 06:50 Consult Physician Routine Consulting Provider: Vinay Sim Consult Reason/Comments: tachycardia Do you want consulting provider notified?: Yes Primary care physician: Jose Cano Hospital Course: Discharge diagnosis: Acute small bowel obstruction in a patient with prior abdominal surgery treated with NG tube in place -Essential hypertension -Hyperlipidemia -Chronic spina bifida with chronic paraplegia -Chronic medical debility patient is wheelchair bound -Leukocytosis from stress -Sinus tachycardia probably from fluid deficit -Chronic neurogenic constipation, for which patient is scheduled manual evacuation -Chronic neurogenic bladder, with chronic Porter catheter -Atelectasis. Does not have pneumonia. -Hypokalemia Hospital course: This is a very pleasant 52-year-old patient who follows Dr. Jose Cano. Chronic stable medical conditions include hypertension, hyperlipidemia, spinal bifida. Patient's cannot use his legs and has no sensation. Patient has a chronic catheter and bowels have to be manually evacuated. Patient also had buttock wounds that had surgery done by Dr. Trujillo. Patient now presents with one-day history of increasing abdominal pain. No fever no chills. Some nausea. This is followed a small bowel obstruction. NG tube was placed. Patient initially was at [facility] where he was transferred here. Dr. White from general surgery was consulted. Patient lives with his niece and a brother. The niece provides care for him. Patient is feeling better off the use of NG tube and suction. Responded well. NG tube was taken out. Was given clear liquids. Did have a bowel movement. Seen by Dr. Cisneros today, okay TO be discharged. Potassium is being replaced. Consultants: Dr. Neftali Cisneros from general surgery Dr. VC Moran from cardiology Physical examination: VITAL SIGNS: Blood pressure 140/83 pulse 108 pulse ox 93% room air GENERAL: Average built, lying in bed, comfortable EYES: Pupils equal. Conjunctiva normal. HEENT: External appearance of nose and ears normal, oral cavity grossly dry with NG tube in place. NECK: JVD not raised; masses not palpable. HEART: First and second heart sounds are normal; no edema. LUNGS: Respiratory rate normal; clear to auscultation. ABDOMEN: Soft, nontender, distention gone down bowel sounds present, liver spleen not palpable, no masses palpable. PSYCH: Alert and oriented x3; mood and affect protectionl. NEUROLOGICAL: Cranial nerves grossly intact; no facial asymmetry, contraction of the lower limbs with no sensation. Investigations, the clinical context: Potassium 2.9, patient received a total of 120 MB choose a potassium today and repeat potassium pending Computed tomography scan from the outside facility showed evidence of gastric distention and small bowel obstruction EKG tracing personally reviewed by me shows sinus tachycardia 2-D echo shows EF of 60-65%. Disposition: [facility] Patient Condition at Discharge: Stable Plan - Discharge Summary New Discharge Prescriptions: No Action Potassium Chloride [Klor-Con 20] 20 meq PO DAILY Sennosides-Docusate Sodium [Senokot-S] 1 tab PO BID@0700,1700 Heparin Sodium,Porcine [Heparin Sodium] 5,000 unit SQ Q8HR Oxybutynin Xl [Ditropan Xl] 5 mg PO BID@0700,1900 Famotidine [Pepcid] 20 mg PO DAILY Atorvastatin [Lipitor] 10 mg PO HS Atenolol 25 mg PO DAILY Acetaminophen Tab [Tylenol] 650 mg PO Q4H PRN PRN Reason: PAIN/FEVER Discharge Medication List Potassium Chloride [Klor-Con 20] 20 meq PO DAILY 07/15/17 [History] Acetaminophen Tab [Tylenol] 650 mg PO Q4H PRN 11/10/18 [History] Atenolol 25 mg PO DAILY 11/10/18 [History] Atorvastatin [Lipitor] 10 mg PO HS 11/10/18 [History] Famotidine [Pepcid] 20 mg PO DAILY 11/10/18 [History] Heparin Sodium,Porcine [Heparin Sodium] 5,000 unit SQ Q8HR 11/10/18 [History] Oxybutynin Xl [Ditropan Xl] 5 mg PO BID@0700,1900 11/10/18 [History] Sennosides-Docusate Sodium [Senokot-S] 1 tab PO BID@0700,1700 11/10/18 [History] Follow up Appointment(s)/Referral(s): Jose Cano MD [Primary Care Provider] - 1-2 days
[2018-11-11] MEDS ORDERED: METOPROLOL TARTRATE 50 MG TAB PO SCH (16:00)
== END 2018-11-11 17:50 | DRG 389 ==
LOC: EC 02:04 → 4MS4W 02:57 → 4SSUR 07:50
PROVIDERS: ADMIT Hospitalist; ATTEND Hospitalist
DX: K56.609 Unspecified intestinal obstruction, unspecified as to partial versus complete obstruction (principal); G82.20 Paraplegia, unspecified; J98.11 Atelectasis; E78.5 Hyperlipidemia, unspecified; E87.6 Hypokalemia; F17.200 Nicotine dependence, unspecified, uncomplicated; I10 Essential (primary) hypertension; I25.10 Atherosclerotic heart disease of native coronary artery without angina pectoris; D46.9 Myelodysplastic syndrome, unspecified; R00.0 Tachycardia, unspecified; N31.9 Neuromuscular dysfunction of bladder, unspecified; Q05.9 Spina bifida, unspecified; Z79.899 Other long term (current) drug therapy; Z82.49 Family history of ischemic heart disease and other diseases of the circulatory system; Z99.3 Dependence on wheelchair; Z90.49 Acquired absence of other specified parts of digestive tract; Z90.89 Acquired absence of other organs; Z98.890 Other specified postprocedural states; Z80.9 Family history of malignant neoplasm, unspecified
CPT/HCPCS: 36415; 71045; 71275; 80048; 80053; 83605; 83880; 84132; 84439; 84443; 84484; 85025; 85379; 87040; 87324; 93005; 93306; 96360; 99285

== ENCOUNTER 2018-11-13 18:28 | Inpatient (IN) | payer MEDICARE, OTHER ==
--- NOTE | 2018-11-13 19:38 | ED ---
General Adult HPI - General Chief complaint: Abdominal Pain Stated complaint: bowel obstruction Time Seen by Provider: 11/13/18 18:30 Source: patient, EMS Mode of arrival: EMS - History of Present Illness Initial comments: Dictation was produced using [employer] dictation software. please excuse any grammatical, word or spelling errors. Chief Complaint: 52-year-old male past medical history of paraplegia due to spina bifida presents with small bowel obstruction from [facility] emergency department. History of Present Illness: Is 52-year-old male. Currently resides in [place]. He was seen today for abdominal pain, nausea vomiting and distended abdomen. Patient was seen and evaluated at [facility] where he was found to have small bowel obstruction. Patient did have CT performed showing persistent distended stomach as well as slightly increased diameter of the small bowel. Patient is having multiple episodes of nausea and vomiting of bilious material. Nasogastric tube was placed at [facility]. Patient reports that the nasogastric tube is uncomfortable however he is tolerating it. According to sister who is at bedside patient had large amounts of fluid drained from the nasogastric tube. Return evaluation was performed showing the WBC of 13.24, rest of CBC is unremarkable. Metabolic panel shows potassium 3.3, no lactic acidosis. The ROS documented in this emergency department record has been reviewed and confirmed by me. Those systems with pertinent positive or negative responses have been documented in the HPI. All other systems are other negative and/or noncontributory. PHYSICAL EXAM: General Impression: Alert and oriented x3, not in acute distress HEENT: Normocephalic atraumatic, extra-ocular movements intact, pupils equal and reactive to light bilaterally, mucous membranes moist, NG tube in place Cardiovascular: Heart regular rate and rhythm, S1&S2 audible, no murmurs, rubs or gallops Chest: Lungs clear to auscultation bilaterally, no rhonchi, no wheeze, no rales Abdomen: Distended, diffuse mild tenderness to palpation Musculoskeletal: Pulses present and equal in all extremities, no peripheral edema Motor: no focal deficits noted Neurological: CN II-XII grossly intact, no focal motor or sensory deficits noted Skin: Intact with no visualized rashes Psych: Normal affect and mood ED course: 52-year-old male presents from [facility] for small bowel obstruction is history of multiple abdominal surgeries including placement view shows that patient was recently admitted and discharged for the same complaint approximately 3-4 days ago. Patient was evaluation by surgeon. Sister reports that patient was not a candidate for surgery according to Dr. Cisneros. Patient's well-appearing at this time. Patient does have temperature 100F, he denies any constitutional symptoms. Rest of vital signs unremarkable.Transferred back condition was reviewed. Patient is dilated b edside and found to be in stable medical condition. Patient did not appear to be in acute distress. Patient tolerate NG tube well. Discussed patient case with Dr. Wasserman is willing to accept care for the patient. Dr. prajapati consultation. - Related Data Home Medications Medication Instructions Recorded Confirmed Potassium Chloride [Klor-Con 20] 20 meq PO DAILY@0700 07/15/17 11/13/18 Acetaminophen Tab [Tylenol] 650 mg PO Q4H PRN 11/10/18 11/13/18 Atenolol 25 mg PO DAILY@0700 11/10/18 11/13/18 Atorvastatin [Lipitor] 10 mg PO HS@2100 11/10/18 11/13/18 Famotidine [Pepcid] 20 mg PO DAILY@0700 11/10/18 11/13/18 Heparin Sodium,Porcine [Heparin 5,000 unit SQ Q8HR 11/10/18 11/13/18 Sodium] Oxybutynin Xl [Ditropan Xl] 5 mg PO BID@0700,1900 11/10/18 11/13/18 Sennosides-Docusate Sodium 1 tab PO BID@0700,1700 11/10/18 11/13/18 [Senokot-S] Allergies Allergy/AdvReac Type Severity Reaction Status Date / Time No Known Allergies Allergy Verified 11/13/18 19:00 Review of Systems ROS Statement: Those systems with pertinent positive or pertinent negative responses have been documented in the HPI. ROS Other: All systems not noted in ROS Statement are negative. Past Medical History Past Medical History: Coronary Artery Disease (CAD), Hyperlipidemia, Hypertension Additional Past Medical History / Comment(s): wounds-vj buttocks-currently receiving wound tx and antibiotics at [facility],spina bifida, acromhvugqsdu-ndjywcvart-iysz w/c History of Any Multi-Drug Resistant Organisms: None Reported Past Surgical History: Adenoidectomy, Back Surgery, Tonsillectomy Additional Past Surgical History / Comment(s): lithotripsy, multiple leg,foot and toe surgeries to release tendons, colostomy with reversal as a child, 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 Past Anesthesia/Blood Transfusion Reactions: No Reported Reaction Past Psychological History: No Psychological Hx Reported Smoking Status: Current every day smoker Past Alcohol Use History: None Reported Past Drug Use History: None Reported - Past Family History Sister(s) Family Medical History: Cancer Mother Family Medical History: Coronary Artery Disease (CAD) Father Family Medical History: Myocardial Infarction (OR) Course Vital Signs 11/13/18 18:33 Temperature 100 F H Blood Pressure 140/99 Disposition Clinical Impression: SBO (small bowel obstruction) Disposition: ADMITTED IP TO THIS [facility] Condition: Fair Referrals: Jose Cano MD [Primary Care Provider] - 1-2 days Decision Time: 19:50
[2018-11-13] MEDS ORDERED: ONDANSETRON 4 MG/2 ML VIAL IVP PRN (19:50)
[2018-11-13] MEDS ORDERED: ACETAMINOPHEN TAB 325 MG TAB PO PRN (19:50)
[2018-11-13] MEDS ORDERED: NALOXONE 0.4 MG/ML 1 ML VIAL IV PRN (19:50)
[2018-11-14] MEDS ORDERED: PIPERACILLIN-TAZOBACTAM 3.375 GM in SODIUM CHLORIDE 0.9% 100 ML IVPB STA (02:09)
[2018-11-14] MEDS ORDERED: SODIUM CHLORIDE 0.9% 2,000 ML IV ONE (02:10)
[2018-11-14] MEDS: SODIUM CHLORIDE 0.9% 1,000 ML IV SCH ×3 (02:23→17:52)
[2018-11-14] MEDS: HEPARIN SODIUM,PORCINE 5,000 UNIT/ML 1 ML VIAL SQ SCH ×4 (03:23→23:09)
[2018-11-14 03:42] LABS: Anisocytosis Slight; HCT 47.4 % (39.0-53.0); MCH 26.9 pg (25.0-35.0); MCHC 31.5 g/dL (31.0-37.0); MCV 85.3 fL (80.0-100.0); Mean Platelet Volume 8.1; Platelet Count 331 k/uL (150-450); RBC 5.56 m/uL (4.30-5.90); RDW 17.1 % (11.5-15.5); WBC 11.3 k/uL (3.8-10.6)
[2018-11-14 03:43] LABS: African American GFR (CKD) >90 (>60 ml/min/1.73 sqM); Anion Gap 18 mmol/L; Blood Urea Nitrogen 31 mg/dL (9-20); Calcium 9.1 mg/dL (8.4-10.2); Carbon Dioxide 20 mmol/L (22-30); Chloride 103 mmol/L (98-107); Glucose 82 mg/dL (74-99); Sodium 141 mmol/L (137-145)
[2018-11-14 03:44] LABS: Potassium 4.5 mmol/L (3.5-5.1)
[2018-11-14 03:51] LABS: Appearance,Urine Turbid (Clear); Bacteria,Urine Few /hpf; Bilirubin,Urine 1+ (Negative); Blood,Urine Small (Negative); Calcium Oxalate Crystals,Urine Occasional /hpf; Color,Urine Yellow; Glucose,Urine (UA) Negative (Negative); Hyaline Casts,Urine 89 /lpf (0-2); Ketones,Urine 2+ (Negative); Leukocyte Esterase,Urine Small (Negative); Mucus,Urine Many /hpf; Nitrite,Urine Negative (Negative); PH, Urine 5.5 (5.0-8.0); Protein,Urine 2+ (Negative); RBC,Urine 91 /hpf (0-5); Specific Gravity,Urine 1.023 (1.001-1.035); Squamous Epithelial Cell,Urine 4 /hpf (0-4); WBC,Urine 65 /hpf (0-5)
[2018-11-14 05:18] LABS: Band Neutrophils % 36 %; Eosinophils # (M) 0.34 k/uL (0-0.7); Large Platelets Present; Lymphocytes # (M) 2.49 k/uL (1.0-4.8); Monocytes # (M) 2.03 k/uL (0-1.0); Neutrophils % (M) 23 %; Nucleated Red Blood Cells 0 /100 WBC (0-0); Total Cells Counted 200
[2018-11-14 05:19] LABS: Polychromasia Present
--- NOTE | 2018-11-14 06:25 | HP ---
HISTORY AND PHYSICAL DATE OF SERVICE: 11/13/2018 CHIEF COMPLAINT: Abdominal pain as well as distention and diarrhea. HISTORY OF PRESENT ILLNESS: This 52-year-old gentleman with a past medical history of multiple medical problems including CAD, history of hypertension, hyperlipidemia, history of wounds in the gluteal region, history of nicotine dependence being followed by Dr. Jose Cano in the outpatient setting was recently admitted with features of acute small-bowel obstruction. The patient was treated symptomatically. NG tube inserted. Patient improved significantly. Patient was discharged home and apparently according to the family the patient had progressive abdominal pain distention and other difficulties. The patient went to [facility] in [place] and CAT scan showed persistent distended stomach as well as slight increased diameter of the small bowel and the patient was referred to [facility] and admitted for further evaluation and treatment. There is no history of any fever, rigors. No history of headache, loss of consciousness, or seizures at this time. PAST MEDICAL HISTORY: History of CAD, history of spina bifida, hypertension, hyperlipidemia, history of paraplegia, history of gastric surgery during childhood where the patient kept colostomy for the details are not available at this time at [facility]. MEDICATIONS: Medications prior to admission include home medications are: 1. Senna 1 tablet p.o. b.i.d. 2. Klor-Con 20 mEq p.o. daily. 3. Ditropan XL 5 mg p.o. b.i.d. 4. Heparin 5000 subcu q.8 hours. 5. Pepcid 20 mg daily. 6. Lipitor 10 mg q.h.s. 7. Atenolol 25 mg p.o. daily. 8. Tylenol 650 q.4 p.r.n. ALLERGIES: Allergies are none. FAMILY HISTORY: History of coronary artery disease in the family. SOCIAL HISTORY: History of smoking. REVIEW OF SYSTEMS: ENT: No diminished hearing or diminished vision. CARDIOVASCULAR SYSTEM: No angina. RESPIRATORY SYSTEM: No cough. GI: As mentioned earlier. : No dysuria. NERVOUS SYSTEM: As mentioned earlier. ALLERGY/IMMUNOLOGY: No asthma or hayfever. MUSCULOSKELETAL: As mentioned earlier. HEMATOLOGY/ONCOLOGY: No history anemia. ENDOCRINE: As mentioned earlier. CONSTITUTIONAL: As mentioned earlier. DERMATOLOGY: Negative. RHEUMATOLOGY: Negative. PSYCHIATRY: As mentioned earlier. PHYSICAL EXAMINATION: The pulse is 100, blood pressure 140/99, respiration, temperature 100 degrees Fahrenheit. HEENT: Conjunctivae normal. Oral mucosa moist. NECK: No jugular venous distention. No carotid bruit. No lymph node enlargement. CARDIOVASCULAR: S1, S2 muffled. No S3, no S4. RESPIRATORY: Breath sounds diminished at the bases. A few scattered rhonchi and crackles. ABDOMEN: Soft, obese, mild diffuse discomfort and old scar is also present which is healed. Distention. Bowel sounds diminished. No ascites. LEGS: No edema, no swelling. NERVOUS SYSTEM: Higher function as mentioned earlier. Moves all 4 limbs. No focal motor deficits. LYMPHATICS: No lymphadenopathy of the neck, axillae or groin. SKIN: No ulcer, rash or bleeding. JOINTS: No active deforming arthropathy. LABS: Labs at this time shows labs are reviewed. Current labs are not available. ASSESSMENT: 1. Recurrence of abdominal pain and distention, possibly partial small bowel obstruction; rule out ileus. 2. Fever for evaluation. 3. History of recent bowel obstruction. 4. History of coronary artery disease. 5. Hypertension. 6. Hyperlipidemia. 7. History of gluteal wounds. 8. Spina bifida. 9. Myelodysplasia. 10.Paraplegia. 11.History of lithotripsy. 12.History of colostomy and reversal as a child. 13.History of ventriculoperitoneal shunt. 14.History of nicotine dependence. RECOMMENDATIONS AND DISCUSSION: In this 52-year-old gentleman who presented with multiple medical issues, at this time I recommend to continue current medications, continue symptomatic treatment. Will order stat labs. Resume the home medications. Obtain cultures. Surgery evaluation. The overall prognosis is extremely guarded because of multiple complex medical issues. Patient also had some diarrhea. I would also check for C difficile colitis and C difficile also. We will hold off the antibiotics for now. Prognosis guarded. Further recommendations to follow. A copy of dictation forwarded to Dr. Jose Cano who is the primary physician. MMODL / FANTASMAN: [id number] / KASSY
[2018-11-14] MEDS ORDERED: PIPERACILLIN-TAZOBACTAM 3.375 GM in SODIUM CHLORIDE 0.9% 100 ML IVPB SCH (08:00)
[2018-11-14] MEDS: ATENOLOL 25 MG TAB PO SCH (08:11)
[2018-11-14] MEDS: OXYBUTYNIN XL 5 MG TAB.ER.24 PO SCH ×2 (08:11→19:45)
[2018-11-14] MEDS: POTASSIUM CHLORIDE ER 20 MEQ TAB.ER PO SCH (08:12)
[2018-11-14] MEDS ORDERED: BENZOCAINE SPRAY 1 CAN TOPICAL PRN (08:35)
[2018-11-14] MEDS: PANTOPRAZOLE 40 MG/10 ML VIAL IV SCH (11:06)
--- NOTE | 2018-11-14 11:27 | XR ---
2 view abdomen HISTORY: History small bowel obstruction 2 views the abdomen correlated to prior abdomen CT 11/13/2018 There is an NG tube placed with the distal tip in the left upper quadrant. Lung bases are clear. Dila fany small bowel loops are present as on CT. No evident pneumoperitoneum. Ventriculoperitoneal shunt t ubing is present. Deformity of the pelvis and spine is a stable finding. IMPRESSION: Findings compatible small bowel obstruction.
[2018-11-14] MEDS: PIPERACILLIN-TAZOBACTAM 3.375 GM in SODIUM CHLORIDE 0.9% 100 ML IVPB SCH ×2 (11:33→21:22)
[2018-11-14] MEDS ORDERED: SODIUM CHLORIDE 0.9% 1,000 ML IV ONE (12:23)
--- NOTE | 2018-11-14 12:29 | P.GSCN ---
History of Present Illness Consult date: 11/14/18 Reason for Consult: SBO Requesting physician: Kevon Pacheco History of present illness: CHIEF COMPLAINT: small bowel obstruction HISTORY OF PRESENT ILLNESS: 52-year-old male who was transferred from [facility] yesterday secondary to small bowel obstruction. Patient was recently admitted from 11/10/18 until 11/11/18 for small bowel obstruction that resolved with conservative treatment. Patient states he was doing well until yesterday when he began having abdominal distention and pain. Patient had NG tube placed at [facility] with 3L of bilious output thus far per nursing. Patient reports mild mid abdominal pain this morning. Denies nausea. He reports a large loose bowel movement this morning. He is asking for something to drink or eat. Patient febrile this morning with a temperature of 100.0F. He has tachycardic with a rate in the 110s. PAST MEDICAL HISTORY: See list. PAST SURGICAL HISTORY: See list. MEDICATIONS: See list. ALLERGIES: See list. SOCIAL HISTORY: No illicit drug use. REVIEW OF SYSTEMS: CONSTITUTIONAL: Denies fever or chills prior to hospitalization. HEENT: Denies blurred vision, vision changes, or eye pain. Denies hemoptysis ENDOCRINE: Denies heat or cold intolerance. CARDIOVASCULAR: Denies chest pain or pressure. RESPIRATORY: Reports shortness of breath. GASTROINTESTINAL: Refer to HPI for pertinent findings. NEURO: Denies history of seizures. PSYCH: No depression or suicidal ideation HEMATOLOGIC: Denies bleeding disorders. LYMPHATIC: The patient denies any lumps and bumps around the neck. GENITOURINARY: Denies any blood in urine or increased urinary frequency. MUSCULOSKELETAL: Denies myalgias. Denies joint swelling. Denies decreased range of motion beyond patients baseline-patient is paraplegic. SKIN: Denies pruitis. Denies rash. PHYSICAL EXAM: VITAL SIGNS: Reviewed. Tachycardic. Febrile. GENERAL: Well-developed in no acute distress. HEENT: NG to LIS with bilious drainage. No sclera icterus. Extraocular movements grossly intact. Moist buccal mucosa. Head is atraumatic, normocephalic. Hears conversational speech. No nasal drainage. NECK: Supple without lymphadenopathy. CHEST: Non-labored respirations and equal bilateral excursions. CARDIOVASCULAR: Tachycardic. Palpable 2+ radial pulses. ABDOMEN: Soft. Mild abdominal distention. Mild tenderness upon palpation of mid abdomen. Positive bowel sounds. Patient with old surgical scars to left lower quadrant and right lower quadrant. MUSCULOSKELETAL: Paraplegic. No clubbing, cyanosis or edema. NEUROLOGIC: No focal or lateralizing signs. Cranial nerves II through XII grossly intact. PSYCH: Appropriate affect. Alert and oriented to person, place and time. SKIN: Well perfused. Good skin turgor. LABORATORY DATA: Laboratory data this morning reveals white count 11.3. Hemoglobin 15.0. Calcium 4.5. BUN 31. Creatinine 0.65. IMAGIN. Dilated small bowel loops are present. No evident pneumoperitoneum. Findings compatible with small bowel obstruction ASSESSMENT: 1. Small bowel obstruction 2. Sepsis, present on admission, patient presented with leukocytosis, tachycardia, and fever 3. Recent hospitalization for small bowel obstruction 4. History of colostomy with reversal as a child PLAN: 1. Continue antibiotics. Monitor WBC. Infectious disease has been consulted. 2. Continue IV fluids. 1L fluid bolus 3. NPO 4. Obtain upper GI with small bowel follow through 5. Further recommendations pending imaging results Nurse practitioner note has been reviewed by physician. Signing provider agrees with the documented findings, assessment, and plan of care. Past Medical History Past Medical History: Coronary Artery Disease (CAD), Hyperlipidemia, Hypertension Additional Past Medical History / Comment(s): wounds-vj buttocks-currently not currently open, receiving wound tx and antibiotics at [facility],spina bifida, ltwcigldygnic-jddvhytkjv-lvge w/c History of Any Multi-Drug Resistant Organisms: None Reported Past Surgical History: Adenoidectomy, Back Surgery, Tonsillectomy Additional Past Surgical History / Comment(s): lithotripsy, multiple leg,foot and toe surgeries to release tendons, colostomy with reversal as a child, 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 Past Anesthesia/Blood Transfusion Reactions: No Reported Reaction Smoking Status: Current every day smoker - Past Family History Sister(s) Family Medical History: Cancer Mother Family Medical History: Coronary Artery Disease (CAD) Father Family Medical History: Myocardial Infarction (ME) Medications and Allergies Home Medications Medication Instructions Recorded Confirmed Type Potassium Chloride [Klor-Con 20] 20 meq PO DAILY@0700 07/15/17 11/13/18 History Acetaminophen Tab [Tylenol] 650 mg PO Q4H PRN 11/10/18 11/13/18 History Atenolol 25 mg PO DAILY@0700 11/10/18 11/13/18 History Atorvastatin [Lipitor] 10 mg PO HS@2100 11/10/18 11/13/18 History Famotidine [Pepcid] 20 mg PO DAILY@0700 11/10/18 11/13/18 History Heparin Sodium,Porcine [Heparin 5,000 unit SQ Q8HR 11/10/18 11/13/18 History Sodium] Oxybutynin Xl [Ditropan Xl] 5 mg PO BID@0700,1900 11/10/18 11/13/18 History Sennosides-Docusate Sodium 1 tab PO BID@0700,1700 11/10/18 11/13/18 History [Senokot-S] Allergies Allergy/AdvReac Type Severity Reaction Status Date / Time No Known Allergies Allergy Verified 11/13/18 19:00 Surgical - Exam Vital Signs Temp BP 100 F H 140/99 11/13/18 18:33 11/13/18 18:33 Results - Labs 11/14/18 03:00 11/14/18 03:00 Abnormal Lab Results - Last 24 Hours (Table) 11/13/18 11/14/18 11/14/18 Range/Units 02:15 03:00 03:00 WBC 11.3 H (3.8-10.6) k/uL RDW 17.1 H (11.5-15.5) % Monocytes # (Manual) 2.03 H (0-1.0) k/uL Carbon Dioxide 20 L (22-30) mmol/L BUN 31 H (9-20) mg/dL Creatinine 0.65 L (0.66-1.25) mg/dL Urine Protein 2+ H (Negative) Urine Ketones 2+ H (Negative) Urine Blood Small H (Negative) Urine Bilirubin 1+ H (Negative) Ur Leukocyte Esterase Small H (Negative) Urine RBC 91 H (0-5) /hpf Urine WBC 65 H (0-5) /hpf Urine WBC Clumps Occasional H (None) /hpf Calcium Oxalate Crystal Occasional H (None) /hpf Urine Bacteria Few H (None) /hpf Hyaline Casts 89 H (0-2) /lpf Urine Mucus Many H (None) /hpf Microbiology - Last 24 Hours (Table) 11/13/18 02:15 Urine Culture - Preliminary Urine,Catheterized Diabetes panel 11/14/18 Range/Units 03:00 Sodium 141 (137-145) mmol/L Potassium 4.5 (3.5-5.1) mmol/L Chloride 103 (98-107) mmol/L Carbon Dioxide 20 L (22-30) mmol/L BUN 31 H (9-20) mg/dL Creatinine 0.65 L (0.66-1.25) mg/dL Glucose 82 (74-99) mg/dL Calcium 9.1 (8.4-10.2) mg/dL Calcium panel 11/14/18 Range/Units 03:00 Calcium 9.1 (8.4-10.2) mg/dL Pituitary panel 11/14/18 Range/Units 03:00 Sodium 141 (137-145) mmol/L Potassium 4.5 (3.5-5.1) mmol/L Chloride 103 (98-107) mmol/L Carbon Dioxide 20 L (22-30) mmol/L BUN 31 H (9-20) mg/dL Creatinine 0.65 L (0.66-1.25) mg/dL Glucose 82 (74-99) mg/dL Calcium 9.1 (8.4-10.2) mg/dL Adrenal panel 11/14/18 Range/Units 03:00 Sodium 141 (137-145) mmol/L Potassium 4.5 (3.5-5.1) mmol/L Chloride 103 (98-107) mmol/L Carbon Dioxide 20 L (22-30) mmol/L BUN 31 H (9-20) mg/dL Creatinine 0.65 L (0.66-1.25) mg/dL Glucose 82 (74-99) mg/dL Calcium 9.1 (8.4-10.2) mg/dL Assessment and Plan (1) Sepsis Current Visit: Yes Status: Acute Code(s): A41.9 - SEPSIS, UNSPECIFIED ORGANISM SNOMED Code(s): 13092666 (2) Small bowel obstruction Current Visit: Yes Status: Acute Code(s): K56.609 - UNSP INTESTNL OBST, UNSP TO PARTIAL VERSUS COMPLETE OBST SNOMED Code(s): 211849615 (3) Abdominal pain Current Visit: No Status: Acute Code(s): R10.9 - UNSPECIFIED ABDOMINAL PAIN SNOMED Code(s): 27433050 (4) Tachycardia Current Visit: No Status: Acute Code(s): R00.0 - TACHYCARDIA, UNSPECIFIED SNOMED Code(s): 5573358
[2018-11-14 16:54] LABS: Appearance,Urine Turbid (Clear); Bacteria,Urine Many /hpf; Bilirubin,Urine Negative (Negative); Blood,Urine Trace (Negative); Color,Urine Yellow; Glucose,Urine (UA) Negative (Negative); Ketones,Urine 2+ (Negative); Leukocyte Esterase,Urine Negative (Negative); Nitrite,Urine Negative (Negative); PH, Urine 5.5 (5.0-8.0); Protein,Urine 1+ (Negative); Urobilinogen,Urine <2.0 mg/dL (<2.0); WBC,Urine 53 /hpf (0-5)
--- NOTE | 2018-11-14 17:10 | P.PN ---
Progress Note - Text Progress Note Date: 11/14/18 Ongoing films of small bowel follow through personally reviewed confirms high grade small bowel obstruction. Discussion with family confirms MULTIPLE abdominal surgeries including colostomy reversal, hernia repairs with mesh. As this is a second re-admission in less than 7 days with rebound obstruction, will proceed with exploratory laparotomy with lysis of adhesions, possible small bowel resection. All questions were addressed. Overall he is high risk with multiple abdominal surgeries. Benefits and risks were described.
--- NOTE | 2018-11-14 19:48 | PN ---
PROGRESS NOTE DATE OF SERVICE: 11/14/2018 This 52-year-old gentleman who was admitted with recurrent abdominal pain and distention with possible partial small-bowel obstruction is being evaluated by upper GI and small bowel series by Surgery. The patient is also being considered for possible surgery after the procedure. Please note the patient has significant bilious output from the NG tube both from Sam and here also. PAST MEDICAL HISTORY: Reviewed. REVIEW OF SYSTEMS: CARDIOVASCULAR: No angina or palpitations. RESPIRATION: As mentioned earlier. GI: As mentioned earlier. : As mentioned earlier. NERVOUS SYSTEM as mentioned earlier. CURRENT MEDICATIONS: Reviewed and include: 1. Tylenol 650 q.6 p.r.n. 2. Tenormin 25 mg p.o. daily. 3. Hurricane spray. 4. Heparin 5000 subcu q.8. 5. Morphine sulfate. 6. Narcan. 7. Zofran. 8. Ditropan XL. 9. Protonix. 10.Zosyn IV. 11.K-Dur 20 mEq. PHYSICAL EXAM: Patient is alert and oriented times three. Pulse 112, blood pressure 118/79 respiration 15. Temperature 99 degrees, T-max 100 degrees, pulse ox 93% on room air. HEENT: Conjunctivae normal. Oral mucosa moist. NECK is no jugular venous distention. No carotid bruit. No lymph node enlargement. CARDIOVASCULAR systems: S1, S2. RESPIRATION: Breath sounds diminished in the bases. Scattered rhonchi. No crackles. ABDOMEN: Soft. Mild diffuse distention present. Mild diffuse tenderness also. NG tube in situ. Bowel sounds diminished. LEGS no edema. No swelling. Contractures. Paraplegia. NERVOUS SYSTEM: Unchanged. LABS: WBC 7.3 and sodium 141, potassium 4.5, creatinine 0.65. UA noted. C difficile negative. ASSESSMENT: 1. Recurrent abdominal pain, distention, possibly small bowel obstruction recurrent. 2. Rule out ileus. 3. Fever possible urinary tract infection present on admission. 4. History of recent bowel obstruction. 5. History of coronary artery disease. 6. Hypertension. 7. Hyperlipidemia. 8. History of gluteal wounds. 9. Spina bifida. 10.Myelodysplasia history. 11.History of paraplegia. 12.History of lithotripsy. 13.History of colostomy reversal as a child. 14.History of intraperitoneal shunt. 15.History of nicotine dependence. RECOMMENDATIONS AND DISCUSSION: Recommend to continue current medication. Continue monitoring and symptomatic treatment. The patient is already on IV Zosyn. We will continue to monitor. Other than that, I would also recommend to obtain cultures and DVT prophylaxis, the barium studies. Possible surgery. Further recommendations to follow. Prognosis guarded because of multiple complex medical issues. Further recommendations to follow. AURORA / FANTASMAN: [id number] /
--- NOTE | 2018-11-14 23:06 | FL ---
EXAMINATION TYPE: FL UGI w small bowel DATE OF EXAM: 11/14/2018 COMPARISON: Correlation CT 11/13/2018 HISTORY: 52-year-old male small bowel obstruction TECHNIQUE: A single contrast UGI study is performed with small bowel follow through. Total fluoroscopy time: 1 minute 53 seconds. Total images: 45. FINDINGS: Two-view abdomen radiographs performed earlier today was utilized as a insurance appraiser radiograph and shows dil ated small bowel loops measuring up to 6.4 cm. NG tube is in place. Levoconvex scoliosis with dysplas tic and degenerative hips compatible with patient's history of CP. [employer] shunt catheter present on the r ight. Upper GI exam was performed with thin barium with 40 degree table tilt as the patient is not able to stand. Initial drinking through a straw demonstrates an irregular contour to the esophagus. As the patient c ontinues drinking, contour smooth and without and mild to moderate tertiary peristaltic contractions are demonstrated. No focal ulceration or filling defects seen. An NG tube is present. The stomach shows normal distensibility without any hiro filling defect. Limited assessment with sin gle contrast technique. Mild gastroesophageal reflux is encountered. No hiatal hernia. Duodenal sweep is frankly dilated up to 6.9 cm. The small bowel study shows prolonged transit time. Imaging was carried out to 7 hours and still has not reached the colon. However, at the 7 hour time point, dilated small bowel loops have transition t o smaller, collapsed small bowel within the right side of the abdomen. This suggests high-grade small bowel obstruction at the distal third small bowel level. IMPRESSION: 1. NG tube in place. Single contrast upper GI examination performed with the patient at 40 degree tab le tilt. Moderate tertiary peristaltic contractions and mild gastroesophageal reflux. No fixed narrow ing of the esophagus or suspicious filling defect of the stomach. 2. High-grade small bowel obstruction with transition point suspected to be at the mid to distal thir d small bowel level. Small bowel loops are dilated up to 6.9 cm. At the 7 hour time point, collapsed loops after the transition point are encountered but the colon is still not reached. 3. An abdominal radiograph can be ordered in the morning to assess further transit of contrast.
--- NOTE | 2018-11-15 00:02 | P.CONS ---
History of Present Illness - Reason for Consult Consult date: 11/14/18 Fever Requesting physician: Adrianne Wasserman - Chief Complaint Abdominal pain and vomiting x 1 day - History of Present Illness Patient is a 52-year-old male with past medical history significant for spina bifida previous history of small bowel obstruction patient presented to [facility] with intractable nausea vomiting of 1 day duration with multiple episodes of vomiting patient did have some epigastric discomfort more of a burning pain when no radiation denies having any diarrhea with the symptoms and the patient was evaluated at that facility diagnosed with a small bowel obstruction he did have the NG tube placed and subsequently has been transferred to [facility] for further management she was noticed to have a low-grade fever 100.7 elevated white count and a positive UA he did received Zosyn and infectious disease was consulted for further recommendation regarding antibiotic patient currently denies having any chest pain shortness of breath or cough he did have chronic indwelling Porter catheter apparently changed about 3 w eeks ago and currently with no open wounds or any cellulitis Review of Systems Positive points has been mentioned in HPI rest of the systems negative Past Medical History Past Medical History: Coronary Artery Disease (CAD), Hyperlipidemia, Hypertension Additional Past Medical History / Comment(s): wounds-vj buttocks-currently not currently open, receiving wound tx and antibiotics at [facility],spina bifida, [id number] w/c History of Any Multi-Drug Resistant Organisms: None Reported Past Surgical History: Adenoidectomy, Back Surgery, Tonsillectomy Additional Past Surgical History / Comment(s): lithotripsy, multiple leg,foot and toe surgeries to release tendons, colostomy with reversal as a child, 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 Past Anesthesia/Blood Transfusion Reactions: No Reported Reaction Smoking Status: Current every day smoker - Past Family History Sister(s) Family Medical History: Cancer Mother Family Medical History: Coronary Artery Disease (CAD) Father Family Medical History: Myocardial Infarction (NE) Medications and Allergies Home Medications Medication Instructions Recorded Confirmed Type Potassium Chloride [Klor-Con 20] 20 meq PO DAILY@0700 07/15/17 11/13/18 History Acetaminophen Tab [Tylenol] 650 mg PO Q4H PRN 11/10/18 11/13/18 History Atenolol 25 mg PO DAILY@0700 11/10/18 11/13/18 History Atorvastatin [Lipitor] 10 mg PO HS@2100 11/10/18 11/13/18 History Famotidine [Pepcid] 20 mg PO DAILY@0700 11/10/18 11/13/18 History Heparin Sodium,Porcine [Heparin 5,000 unit SQ Q8HR 11/10/18 11/13/18 History Sodium] Oxybutynin Xl [Ditropan Xl] 5 mg PO BID@0700,1900 11/10/18 11/13/18 History Sennosides-Docusate Sodium 1 tab PO BID@0700,1700 11/10/18 11/13/18 History [Senokot-S] Allergies Allergy/AdvReac Type Severity Reaction Status Date / Time No Known Allergies Allergy Verified 11/13/18 19:00 Physical Exam Vitals: Vital Signs Temp Pulse Pulse Resp BP BP Pulse Ox 11/14/18 07:00 100.0 F H 89 15 121/74 95 11/14/18 04:00 106 H 14 119/79 94 L 11/14/18 03:30 112 H 13 106/68 94 L 11/14/18 02:30 112 H 15 121/87 92 L 11/14/18 01:30 95 11/14/18 00:30 100.7 F H 120 H 128/91 94 L 11/13/18 23:11 126/86 94 L 11/13/18 23:00 81 20 127/93 94 L 11/13/18 22:30 82 20 133/83 92 L 11/13/18 22:00 78 20 123/83 93 L 11/13/18 18:33 100 F H 140/99 Intake and Output 11/13/18 11/14/18 11/14/18 22:59 06:59 14:59 Output Total 950 900 450 Balance -950 -900 -450 Output: Gastric Drainage 950 900 450 Other: Voiding Method Indwelling Catheter # Bowel Movements 1 Weight 65.771 kg GENERAL DESCRIPTION: Middle-aged male lying in bed, no distress. No tachypnea or accessory muscle of respiration use. HEENT: Shows Pallor , no scleral icterus. Oral mucous membrane is dry. No pharyngeal erythema or thrush NECK: Trachea central, no thyromegaly. LUNGS: Unlabored breathing. Clear to auscultation anteriorly. No wheeze or crackle. HEART: S1, S2, regular rate and rhythm. No loud murmur ABDOMEN: Soft, no tenderness , guarding or rigidity, no organomegaly EXTREMITIES: No edema of feet. SKIN: No rash, no masses palpable. NEUROLOGICAL: The patient is awake, alert, oriented x3, mood and affect normal Results CBC & Chem 7: 11/14/18 03:00 11/14/18 03:00 Labs: Abnormal Lab Results - Last 24 Hours (Table) 11/13/18 11/14/18 11/14/18 Range/Units 02:15 03:00 03:00 WBC 11.3 H (3.8-10.6) k/uL RDW 17.1 H (11.5-15.5) % Monocytes # (Manual) 2.03 H (0-1.0) k/uL Carbon Dioxide 20 L (22-30) mmol/L BUN 31 H (9-20) mg/dL Creatinine 0.65 L (0.66-1.25) mg/dL Urine Protein 2+ H (Negative) Urine Ketones 2+ H (Negative) Urine Blood Small H (Negative) Urine Bilirubin 1+ H (Negative) Ur Leukocyte Esterase Small H (Negative) Urine RBC 91 H (0-5) /hpf Urine WBC 65 H (0-5) /hpf Urine WBC Clumps Occasional H (None) /hpf Calcium Oxalate Crystal Occasional H (None) /hpf Urine Bacteria Few H (None) /hpf Hyaline Casts 89 H (0-2) /lpf Urine Mucus Many H (None) /hpf Microbiology - Last 24 Hours (Table) 11/13/18 02:15 Urine Culture - Preliminary Urine,Catheterized Assessment and Plan Assessment: 1-patient with a low-grade fever of 100.7 with elevated white count in this patient predominantly with GI symptom of nausea vomiting and has been diagnosed with a small bowel obstruction currently being managed medically with bowel rest and NG suction with a source of the fever could have been abdominal however patient did have a positive UA with a chronic indwelling Porter catheter urine could be the likely source of this fever and elevated white count Plan: 1-change Porter catheter and obtain urine culture from the new Porter 2-Zosyn 3.375 g every 8 hours 3-gentle IV fluid we will follow up on clinical condition and cultures to further adjust medication if needed Thank you for this consultation will follow this patient along with you Time with Patient: Greater than 30
[2018-11-15 01:31] LABS: INR 1.1 (<1.2); Partial Thromboplastin Time 27.6 sec (22.0-30.0); Prothrombin Time 11.8 sec (9.0-12.0)
[2018-11-15] MEDS: SODIUM CHLORIDE 0.9% 1,000 ML IV SCH ×3 (02:28→23:33)
[2018-11-15] MEDS: PIPERACILLIN-TAZOBACTAM 3.375 GM in SODIUM CHLORIDE 0.9% 100 ML IVPB SCH ×3 (05:05→21:08)
[2018-11-15] MEDS ORDERED: IV FLUID CONTINUATION 1,000 ML IV ONE (06:50)
[2018-11-15] MEDS: HEPARIN SODIUM,PORCINE 5,000 UNIT/ML 1 ML VIAL SQ SCH (07:37)
[2018-11-15] MEDS ORDERED: ceFAZolin IN SWFI 2 GM/20 ML SYRINGE IVP ONE (08:00)
[2018-11-15] MEDS ORDERED: ESMOLOL 100 MG/10 ML VIAL ONE (08:22)
[2018-11-15] MEDS ORDERED: fentaNYL (PF) 50 MCG/ML 2 ML AMP ONE (08:22)
[2018-11-15] MEDS ORDERED: GLYCOPYRROLATE 0.2 MG/ML 2 ML VIAL ONE (08:22)
[2018-11-15] MEDS ORDERED: LIDOCAINE 1% INJ 10MG/ML (20 ML MDV) ONE (08:22)
[2018-11-15] MEDS ORDERED: KETAMINE 10 MG/ML 20 ML VIAL ONE (08:22)
[2018-11-15] MEDS ORDERED: ROCURONIUM BROMIDE 10 MG/ML 10 ML VIAL IV ONE (08:22)
[2018-11-15] MEDS ORDERED: MIDAZOLAM 2 MG/2 ML VIAL ONE (08:22)
[2018-11-15] MEDS ORDERED: NEOSTIGMINE 1 MG/ML 10 ML VIAL ONE (08:22)
[2018-11-15] MEDS ORDERED: HYDROmorphone (PF) 1 MG/ML ONE (08:22)
[2018-11-15] MEDS ORDERED: PROPOFOL 10 MG/ML 20 ML VIAL IV ONE (08:22)
[2018-11-15] MEDS ORDERED: LACTATED RINGERS 1,000 ML IV ONE ×4 (08:59→13:41)
[2018-11-15 13:18] LABS: Anisocytosis Slight; HCT 37.3 % (39.0-53.0); Hypochromasia Slight; MCH 27.4 pg (25.0-35.0); MCHC 32.3 g/dL (31.0-37.0); MCV 84.9 fL (80.0-100.0); Mean Platelet Volume 7.3; Platelet Count 322 k/uL (150-450); RBC 4.39 m/uL (4.30-5.90); RDW 16.6 % (11.5-15.5); WBC 13.1 k/uL (3.8-10.6)
[2018-11-15 13:42] LABS: Band Neutrophils % 3 %; Eosinophils # (M) 0.13 k/uL (0-0.7); Lymphocytes # (M) 2.36 k/uL (1.0-4.8); Monocytes # (M) 1.44 k/uL (0-1.0); Neutrophils % (M) 67 %; Nucleated Red Blood Cells 0 /100 WBC (0-0); Total Cells Counted 100
[2018-11-15] MEDS ORDERED: HYDROmorphone 1 MG/ML 1 ML SYRINGE IVP ONE ×2 (14:17→14:27)
--- NOTE | 2018-11-15 14:18 | P.OP ---
Date of Procedure: 11/15/18 Description of Procedure: SURGEON: OLEGARIO LU MD STOCK CONTROL SUPERVISOR: NONE. PREOPERATIVE DIAGNOSIS: 1. Recurrent small bowel obstruction, high grade, near complete 2. Personal history of multiple abdominal surgeries. 3. Severe right lower quadrant abdominal pain. 4. Spina bifida 5. Ventricular Peritoneal shunt present for history of hydrocephalus 6. Paraplegia 7. Hypertensive heart disease 8. Recurrent pressure decubiti sacral ulcers 9. Chronic constipation 10. Neurogenic bladder 11. Gastroesophageal reflux disease 12. Hyperlipidemia POSTOPERATIVE DIAGNOSIS: 1. Recurrent small bowel obstruction, high grade, near complete 2. Personal history of multiple abdominal surgeries. 3. Severe right lower quadrant abdominal pain. 4. Spina bifida 5. Ventricular Peritoneal shunt present for history of hydrocephalus 6. Paraplegia 7. Hypertensive heart disease 8. Recurrent pressure decubiti sacral ulcers 9. Chronic constipation 10. Neurogenic bladder 11. Gastroesophageal reflux disease 12. Hyperlipidemia 13. Severe peritoneal adhesions throughout abdomen 14. Severe lower extremity contracture in flex position of the hips 15. Leukocytosis with sepsis 16. Urinary tract infection. Procedure(s) Performed: 1. Extensive lysis of adhesions over 4-1/2 hours for severe malignant adhesions Anesthesia: GETA Estimated Blood Loss (ml): 800 Pathology: none sent Condition: other (Guarded) Disposition: floor Operative Findings: 1. 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 2. COILER OPERATOR shunt identified and unharmed during procedure 3. High-grade small bowel obstruction affecting the right lower quadrant/groin dissected free 4. Multiple adhesive bands involving the deep lower pelvis with control of bleeding using 3-0 suture ligature using silk including SNOW and FloSeal 5. Extensive lysis of adhesions of small bowel performed with release of obstruction 6. COILER OPERATOR shunt placed along the right lateral abdominal wall 7. Case complicated with severe contractures in sharp flexion of the hips limiting complete assess to the abdomen and adding moderate complexity to the case. COMPLEXITY OF CASE: 1. 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 INDICATIONS: The patient is a 52-year-old male who presents with chronic small bowel obstructions over decade. He has personal history of multiple abdominal surgeries including multiple hernia repairs. Prior, he was admitted for small bowel obstruction and treated conservatively. In less than 48 hours, he returned with high small bowel obstruction. Given the persistent severity of his pain, urgent surgical intervention was described. Surgical intervention with open exploratory laparotomy with lysis of adhesions and possible bowel resection was reviewed in detail. Benefits and risks of the procedures were discussed. Informed consent was obtained. DESCRIPTION: The patient was brought to the operating room. After general induction, the abdomen was then prepped and draped in standard sterile fashion using chlorhexidine. Ioban draping was also placed. Prior to incision, a timeout protocol was confirmed with surgical team regarding patient's name including procedures to be performed. Preoperative medications were confirmed. Attention was brought to the abdomen where multiple well healed incisions throughout the lateral abdominal de la vega were found. Next, a #10 blade was used to enter along the epigastrium and e xtended down to the pubis. Carefully the abdomen was entered using electro- Bovie cautery. Carefully abdomen was entered along the epigastrium using a combination of sharp with Metzenbaum scissors including blunt dissection. avoiding any injury to his COILER OPERATOR shunt. Next, additional adhesions were palpated along the abdominal wall consistent with the greater omentum. Of the lower abdomen, several pockets were encountered, whereby the small bowel was found to be proximally dilated and distally decompressed at the terminal ileum and colon. Using minimal electro-Bovie cautery as well as using sharp dissection with a Metzenbaum scissors, these adhesions of the greater omentum to the abdominal wall were sharply taken down. Next, along the greater omentum, multiple small bowel loops were found dilated and actually pinched in an internal hernia of the right lower abdomen. Severe interloop adhesions were identified and addressed requiring over 4 hrs to lyse. The greater omental defect was palpated and divided using a LigaSure. Immediately, the small bowel was released, with a chronic depression consistent with adhesive band disease. Next, the small bowel was still moderately dilated with completely decompressed distal ileum. The colon, particularly the sigmoid was completely decompressed. The ascending colon was also decompressed. All small bowel adhesions were lysed from the ligament ot trietz to ileocecal valve. The small bowel was viable and well-perfused. The small bowel was inspected from distal to proximal, starting from the ileocecal valve. Another point of obstruction was confirmed along the distal jejunum whereby the small bowel was also encroached within another defect of the greater omentum. Similarly, the defect of the greater omentum was divided using LigaSure. At this point all adhesions were found to have been addressed, as immediately peristalsis had resumed along the mid to distal small bowel. Excellent revascularization had occurred of the rest of the bowel and small bowel obstruction had been released. From distal to proximal, the small bowel was investigated up to the ligament of Treitz whereby no further features of internal hernia was identified. The descending colon was adherent to the left lower quadrant from his previous colostomy site and undisturbed to prevent risk of injury to the colon. Points of his pain including the right lower quadrant and bilateral lower pelvis were addressed consistent with the patient's location of the pain. All adhesions were lysed for over 4 hours. Bleeding was found at the pelvis from an arterial vessel. Control of bleeding was performed using 3-0 silk suture ligature. Floseal and SNOW was used for hemostasis. SNOW was removed to decrease foreign body in the abdomen. The greater omentum was inspected to identify any other potential hernias. Majority of his greater omentum was still intact. COILER OPERATOR shunt was placed along the right lateral abdominal wall. The abdomen was inspected for hemostasis and completely dried. The abdomen was closed using 2 sutures of double-stranded 0 PDS from inferior to superiorly. The skin was cleansed and the Ioban draping was removed. An Optifoam surgical dressing was placed. At the end of the procedure, needle, sponge, and instrument count had been verified correct by the surgical supervisor. The patient was extubated and taken to the postanesthesia care unit in stable condition. The patient's family was made aware of the intraoperative findings and pleased with the level of care. NOTE: I did discuss with the family with his history of COILER OPERATOR shunt and severity of adhesions, recurrence may occur. He will benefit from tertiary care center referral with neurosurgical services for assessment of his COILER OPERATOR shunt should any other exploratory laparotomy may be needed.
[2018-11-15] MEDS: PANTOPRAZOLE 40 MG/10 ML VIAL IV SCH (15:00)
[2018-11-15] MEDS: OXYBUTYNIN XL 5 MG TAB.ER.24 PO SCH ×2 (15:00→18:04)
[2018-11-15] MEDS: ATENOLOL 25 MG TAB PO SCH (15:00)
[2018-11-15] MEDS: POTASSIUM CHLORIDE ER 20 MEQ TAB.ER PO SCH (15:00)
[2018-11-15 15:43] LABS: African American GFR (CKD) >90 (>60 ml/min/1.73 sqM); Anion Gap 12 mmol/L; Blood Urea Nitrogen 20 mg/dL (9-20); Calcium 7.8 mg/dL (8.4-10.2); Carbon Dioxide 19 mmol/L (22-30); Chloride 113 mmol/L (98-107); Glucose 71 mg/dL (74-99); Sodium 144 mmol/L (137-145)
[2018-11-15 15:58] LABS: Potassium 2.7 mmol/L (3.5-5.1)
[2018-11-15] MEDS: MORPHINE SULFATE 4 MG/ML SYRINGE IV PRN ×2 (16:01→19:55)
--- NOTE | 2018-11-15 16:24 | XR ---
EXAMINATION TYPE: XR chest 1V portable DATE OF EXAM: 11/15/2018 HISTORY: Shortness of breath. COMPARISON: 11/10/2018 TECHNIQUE: Single view of the chest is submitted. FINDINGS: Demonstrated are scattered senescent parenchymal change. Bilateral pulmonary venous congestion and interstitial edema persists although appear to significantl y improved. Persistent patchy density right upper lobe. No evidence for sizable effusion. NG tube is seen coursing into the stomach. Hilar and mediastinal structures are within normal limits. Degenerative changes are seen of the dorsal spine. IMPRESSION: 1. Persistent but improving features of congestive failure. Persistent right upper lobe density whic h may reflect infiltrate or atelectasis.
[2018-11-15] MEDS ORDERED: 0.9% NACL WITH KCL 40 MEQ/L 1,000 ML IV ONE (16:30)
[2018-11-15] MEDS ORDERED: Magnesium Replacement Protocol 1 EACH MISC MISCELLANE PRN ×2 (16:33→23:30)
[2018-11-15] MEDS ORDERED: Potassium Replacement Protocol 1 EACH MISC MISCELLANE PRN ×2 (16:33→23:30)
[2018-11-15] MEDS: ACETAMINOPHEN IV (For NPO) 1,000 MG in EMPTY BAG 1 BAG IVPB SCH (17:25)
[2018-11-15] MEDS: POTASSIUM CHLORIDE 10 MEQ in WATER FOR INJECTION 1 100ML.BAG IVPB SCH ×5 (17:47→23:13)
--- NOTE | 2018-11-15 18:56 | PN ---
PROGRESS NOTE DATE OF SERVICE: 11/15/2018. REASON FOR FOLLOWUP: Fever with a question of UTI/abdominal source. INTERVAL HISTORY: The patient is currently afebrile. The patient has been taken to the OR and is status post extensive lysis of adhesions. The patient has tolerated the procedure complaining of some abdominal discomfort, still has the NG in. Denies having any chest pain. No shortness of breath or cough. PHYSICAL EXAMINATION: Blood pressure 148/94 with a pulse of 121, temperature 98. He is 90% on room air. General description is a middle-aged male lying in bed in no distress. Respiratory system: Unlabored breathing, clear to auscultation anteriorly. Heart is S1, S2. Regular rate and rhythm. Abdomen soft. No tenderness. LABS: Hemoglobin 12, white count of 13.1. UA not significantly positive, will change out his Porter catheter. DIAGNOSTIC IMPRESSION AND PLAN: Patient admitted to the hospital with intractable nausea and vomiting with evidence of small-bowel obstruction of possible urine showing a gram-negative bacilli, for which Porter catheter has been changed. Patient currently covered with Zosyn that will continue for now while monitoring his clinical course and culture closely. Continue supportive care. MMODL / IJN: [id number] /
[2018-11-15] MEDS ORDERED: SODIUM CHLORIDE 0.9% 1,000 ML IV ONE (19:28)
[2018-11-15] MEDS ORDERED: ATENOLOL 25 MG TAB PO STA (19:54)
[2018-11-16] MEDS: HEPARIN SODIUM,PORCINE 5,000 UNIT/ML 1 ML VIAL SQ SCH ×4 (00:26→23:47)
[2018-11-16] MEDS: ACETAMINOPHEN IV (For NPO) 1,000 MG in EMPTY BAG 1 BAG IVPB SCH ×3 (00:29→14:14)
[2018-11-16] MEDS: POTASSIUM CHLORIDE 10 MEQ in WATER FOR INJECTION 1 100ML.BAG IVPB SCH ×5 (00:55→15:06)
[2018-11-16] MEDS: MORPHINE SULFATE 4 MG/ML SYRINGE IV PRN ×2 (03:27→19:35)
[2018-11-16] MEDS: PIPERACILLIN-TAZOBACTAM 3.375 GM in SODIUM CHLORIDE 0.9% 100 ML IVPB SCH ×4 (03:27→23:46)
[2018-11-16 04:11] LABS: Anisocytosis Slight; HCT 37.4 % (39.0-53.0); HGB 11.7 gm/dL (13.0-17.5); MCH 26.6 pg (25.0-35.0); MCHC 31.4 g/dL (31.0-37.0); MCV 84.8 fL (80.0-100.0); Mean Platelet Volume 7.1; Platelet Count 340 k/uL (150-450); RBC 4.41 m/uL (4.30-5.90); RDW 16.3 % (11.5-15.5); WBC 13.4 k/uL (3.8-10.6)
[2018-11-16 04:23] LABS: African American GFR (CKD) >90 (>60 ml/min/1.73 sqM); Anion Gap 11 mmol/L; Blood Urea Nitrogen 19 mg/dL (9-20); Calcium 7.8 mg/dL (8.4-10.2); Carbon Dioxide 17 mmol/L (22-30); Chloride 113 mmol/L (98-107); Glucose 75 mg/dL (74-99); Magnesium 1.7 mg/dL (1.6-2.3); Potassium 3.7 mmol/L (3.5-5.1); Sodium 141 mmol/L (137-145)
[2018-11-16 05:08] LABS: Band Neutrophils % 6 %; Eosinophils # (M) 0.13 k/uL (0-0.7); Lymphocytes # (M) 2.01 k/uL (1.0-4.8); Monocytes # (M) 1.61 k/uL (0-1.0); Neutrophils % (M) 66 %; Nucleated Red Blood Cells 0 /100 WBC (0-0); Total Cells Counted 100
[2018-11-16] MEDS: POTASSIUM CHLORIDE ER 20 MEQ TAB.ER PO SCH (07:45)
[2018-11-16] MEDS: OXYBUTYNIN XL 5 MG TAB.ER.24 PO SCH ×2 (07:45→21:13)
--- NOTE | 2018-11-16 08:05 | PN ---
PROGRESS NOTE DATE OF SERVICE: 12/12/2018. 52-year-old gentleman who was admitted with recurrent abdominal pain had significant bowel small obstruction recurrent. The patient underwent exploratory laparotomy as well as extensive lysis of adhesions by Dr. White which lasted for almost four and one half hours. Transposition of the patient was also done by Dr. White. No chest pain. No palpitations. No fever. PAST MEDICAL HISTORY: Reviewed. REVIEW OF SYSTEMS: CARDIOVASCULAR: No angina. RESPIRATION: No cough GI as mentioned. : As mentioned earlier. CENTRAL NERVOUS SYSTEM: No numbness, weakness. CURRENT MEDICATIONS: Reviewed and include: 1. Tylenol p.r.n. 2. Tenormin 25 mg p.o. daily. 4. Magnesium/potassium protocol. 5. Narcan. 6. Zofran. 7. Ditropan XL. 8. Protonix 40 mg. 9. Zosyn 3.375 IV q.8h. 10.K-Dur. 11.P.r.n. medications. EXAM: Alert and oriented times three. Pulse is 124, blood pressure 140/60, respiration 18, temperature 98.2, pulse ox 98% on room air. HEENT: Conjunctivae normal. NECK: No JVD. CARDIOVASCULAR: S1, S2 muffled. RESPIRATORY: Breath sounds diminished in the bases. Scattered rhonchi and crackles. ABDOMEN is soft. Status post surgery. LEGS are no edema, no swelling. CENTRAL NERVOUS SYSTEM: No focal deficits. LAB STUDIES: WBC 13, hemoglobin is 12, sodium 142, potassium 2.7. ASSESSMENT: 1. Recurrent abdominal pain, possibly small-bowel obstruction status post exploratory laparotomy and extensive lysis of adhesions. 2. Severe hypokalemia. 3. Fever, possible urinary tract infection present on admission. 4. History of recent bowel obstruction. 5. History of coronary artery disease. 6. Hypertension. 7. Hyperlipidemia. 8. History of gluteal wounds. 9. Spina bifida. 10.Myelodysplasia history. 11.History of paraplegia. 12.History of lithotripsy. 13.History of colostomy reversal as a child. 14.History of ventriculoperitoneal shunt. 15.History of nicotine dependence. RECOMMENDATIONS AND DISCUSSION: Recommend to continue current medications, symptomatic treatment. Otherwise, at this time, I would add 40 mEq KCl to IV fluids. I would also recommend repeat lytes and use potassium and magnesium replacement protocol. We will closely follow with surgery. Repeat labs will be ordered. Further recommendations to follow. See orders for details. The patient is n.p.o. per Dr. White's recommendations. Infectious Disease input appreciated. AURORA / SANTOS: [id number] / MTDD
[2018-11-16] MEDS: PANTOPRAZOLE 40 MG/10 ML VIAL IV SCH (08:33)
[2018-11-16] MEDS: SODIUM CHLORIDE 0.9% 1,000 ML IV SCH (08:33)
[2018-11-16] MEDS: ATENOLOL 25 MG TAB PO SCH (08:35)
--- NOTE | 2018-11-16 12:27 | P.PN ---
<Keli Price Km - Last Filed: 11/16/18 12:20> Subjective Progress Note Date: 11/16/18 CHIEF COMPLAINT: small bowel obstruction HISTORY OF PRESENT ILLNESS: patient is status post exploratory laparotomy with extensive lysis of adhesions. POD #1. Patient examined at the bedside with Dr. White. NG to LIS with bilious drainage. Patient denies passing flatus or having BM. Reports pain is tolerable. WBC 13.4. Hemoglobin 11.7. Potassium 3.7. Magnesium 1.7. patient remains tachycardic with a HR in the 110s. Afebrile. Blood pressure stable. PHYSICAL EXAM: VITAL SIGNS: Reviewed. Tachycardic. GENERAL: Well-developed in no acute distress. HEENT: NG to LIS with bilious drainage. No sclera icterus. Extraocular movements grossly intact. Moist buccal mucosa. Head is atraumatic, normocephalic. Hears conversational speech. No nasal drainage. NECK: Supple without lymphadenopathy. CHEST: Non-labored respirations and equal bilateral excursions. CARDIOVASCULAR: Tachycardic. Palpable 2+ radial pulses. ABDOMEN: Soft. Nondistended. Appropriate surgical tenderness. Dressing to midline incision intact with small areas of serosanguineous drainage. Patient with old surgical scars to left lower quadrant and right lower quadrant. MUSCULOSKELETAL: Paraplegic. No clubbing, cyanosis or edema. NEUROLOGIC: No focal or lateralizing signs. Cranial nerves II through XII grossly intact. PSYCH: Appropriate affect. Alert and oriented to person, place and time. SKIN: Well perfused. Good skin turgor. ASSESSMENT: 1. Recurrent small bowel obstruction 2. Sepsis, present on admission, patient presented with leukocytosis, tachycardia, and fever 3. Recent hospitalization for small bowel obstruction 4. History of colostomy with reversal as a child 5. Hypokalemia 6. Hypomagnesemia PLAN: 1. Continue antibiotics. Monitor WBC. Infectious disease is on consult 2. Continue IV fluids. 3. NPO except ice chips and popsicles 4. Continue NG tube until patient begins passing flatus 5. Recommend increasing beta andrea for optimal heart rate control 6. Incentive spirometry 7. Replace magnesium per protocol to maintain magnesium levels greater than 2.0 8. Replace potassium per protocol to maintain potassium levels greater than 4.0 Nurse practitioner note has been reviewed by physician. Signing provider agrees with the documented findings, assessment, and plan of care. Objective - Vital Signs Vital signs: Vital Signs Temp 98.7 F 11/16/18 07:00 Pulse 115 H 11/16/18 07:00 Resp 12 11/16/18 07:00 BP 143/84 11/16/18 07:00 Pulse Ox 95 11/16/18 07:00 Intake & Output 11/15/18 11/16/18 11/16/18 18:59 06:59 18:59 Intake Total 3650 350 Output Total 950 1325 800 Balance 2700 -975 -800 Intake: IV 3650 Intake, IV Titration 300 Amount Piperacillin-Tazobactam 3 100 .375 gm In Sodium Chloride 0.9% 100 ml @ 25 mls/hr IVPB Q8H [facility] Rx#: [id number] Potassium Chloride 10 meq 100 In Water For Injection 1 100ml.bag @ 100 mls/hr IVPB Q1H [facility] Rx#: [id number] Potassium Chloride 10 meq 100 In Water For Injection 1 100ml.bag @ 100 mls/hr IVPB Q1HR [facility] Rx#: [id number] Oral 50 Output: Gastric Drainage 800 Urine 150 775 Oral Regurgitation 550 Estimated Blood Loss 800 Other: Voiding Method Indwelling Catheter Indwelling Catheter - Labs CBC & Chem 7: 11/16/18 03:13 11/16/18 08:41 Labs: Abnormal Lab Results - Last 24 Hours (Table) 11/15/18 11/15/18 11/16/18 Range/Units 13:03 15:15 03:13 WBC 13.1 H 13.4 H (3.8-10.6) k/uL Hgb 12.0 L D 11.7 L (13.0-17.5) gm/dL Hct 37.3 L 37.4 L (39.0-53.0) % RDW 16.6 H 16.3 H (11.5-15.5) % Neutrophils # (Manual) 9.10 H 9.60 H (1.3-7.7) k/uL Monocytes # (Manual) 1.44 H 1.61 H (0-1.0) k/uL Potassium 2.7 L* (3.5-5.1) mmol/L Chloride 113 H (98-107) mmol/L Carbon Dioxide 19 L (22-30) mmol/L Creatinine 0.56 L (0.66-1.25) mg/dL Glucose 71 L (74-99) mg/dL Calcium 7.8 L (8.4-10.2) mg/dL 11/16/18 Range/Units 03:13 WBC (3.8-10.6) k/uL Hgb (13.0-17.5) gm/dL Hct (39.0-53.0) % RDW (11.5-15.5) % Neutrophils # (Manual) (1.3-7.7) k/uL Monocytes # (Manual) (0-1.0) k/uL Potassium (3.5-5.1) mmol/L Chloride 113 H (98-107) mmol/L Carbon Dioxide 17 L (22-30) mmol/L Creatinine 0.53 L (0.66-1.25) mg/dL Glucose (74-99) mg/dL Calcium 7.8 L (8.4-10.2) mg/dL Microbiology - Last 24 Hours (Table) 11/13/18 02:15 Urine Culture - Final Urine,Catheterized Escherichia coli 11/13/18 22:21 Blood Culture - Preliminary Blood No Growth after 48 hours 11/14/18 15:25 Urine Culture - Final Urine,Catheterized Assessment and Plan (1) Sepsis Current Visit: Yes Status: Acute Code(s): A41.9 - SEPSIS, UNSPECIFIED ORGANISM SNOMED Code(s): 12907617 (2) Small bowel obstruction Current Visit: Yes Status: Acute Code(s): K56.609 - UNSP INTESTNL OBST, UNSP TO PARTIAL VERSUS COMPLETE OBST SNOMED Code(s): 507634358 (3) Abdominal pain Current Visit: No Status: Acute Code(s): R10.9 - UNSPECIFIED ABDOMINAL PAIN SNOMED Code(s): 70169070 (4) Tachycardia Current Visit: No Status: Acute Code(s): R00.0 - TACHYCARDIA, UNSPECIFIED SNOMED Code(s): 4617173 <Caroline White N - Last Filed: 11/16/18 18:51> Subjective Agree with above. Recommend fluid boluses for dehydration. Switch IVF to normal saline with potassium. Await bowel function. Objective - Vital Signs Vital signs: Vital Signs Temp 98.5 F 11/16/18 14:22 Pulse 106 H 11/16/18 14:22 Resp 14 11/16/18 14:22 BP 107/57 11/16/18 14:22 Pulse Ox 93 L 11/16/18 14:22 Intake & Output 11/15/18 11/16/18 11/16/18 18:59 06:59 18:59 Intake Total 3650 350 Output Total 950 1325 800 Balance 2700 -975 -800 Weight 65.771 kg Intake: IV 3650 Intake, IV Titration 300 Amount Piperacillin-Tazobactam 3 100 .375 gm In Sodium Chloride 0.9% 100 ml @ 25 mls/hr IVPB Q8H [facility] Rx#: [id number] Potassium Chloride 10 meq 100 In Water For Injection 1 100ml.bag @ 100 mls/hr IVPB Q1H [facility] Rx#: [id number] Potassium Chloride 10 meq 100 In Water For Injection 1 100ml.bag @ 100 mls/hr IVPB Q1HR [facility] Rx#: [id number] Oral 50 Output: Gastric Drainage 800 Urine 150 775 Oral Regurgitation 550 Estimated Blood Loss 800 Other: Voiding Method Indwelling Catheter Indwelling Catheter - Labs CBC & Chem 7: 11/16/18 03:13 11/16/18 08:41 Labs: Abnormal Lab Results - Last 24 Hours (Table) 11/16/18 11/16/18 Range/Units 03:13 03:13 WBC 13.4 H (3.8-10.6) k/uL Hgb 11.7 L (13.0-17.5) gm/dL Hct 37.4 L (39.0-53.0) % RDW 16.3 H (11.5-15.5) % Neutrophils # (Manual) 9.60 H (1.3-7.7) k/uL Monocytes # (Manual) 1.61 H (0-1.0) k/uL Chloride 113 H (98-107) mmol/L Carbon Dioxide 17 L (22-30) mmol/L Creatinine 0.53 L (0.66-1.25) mg/dL Calcium 7.8 L (8.4-10.2) mg/dL Microbiology - Last 24 Hours (Table) 11/13/18 02:15 Urine Culture - Final Urine,Catheterized Escherichia coli 11/13/18 22:21 Blood Culture - Preliminary Blood No Growth after 48 hours 11/14/18 15:25 Urine Culture - Final Urine,Catheterized
[2018-11-16 13:54] VITALS: BMI 25.7
[2018-11-16] MEDS ORDERED: SODIUM CHLORIDE 0.9% 1,000 ML IV ONE (14:35)
[2018-11-16] MEDS ORDERED: SODIUM CHLORIDE 0.9% 1,000 ML with POTASSIUM CHLORIDE 40 MEQ IV SCH ×4 (14:37→19:00)
[2018-11-16] MEDS: MAGNESIUM SULFATE-D5W PMX 1 GM in DEXTROSE/WATER 1 100ML.BAG IVPB SCH ×2 (15:10→16:20)
[2018-11-16] MEDS ORDERED: BISACODYL 10 MG SUPP RECTAL STA (15:30)
[2018-11-16] MEDS: 0.9% NACL WITH KCL 40 MEQ/L 1,000 ML IV SCH (16:26)
--- NOTE | 2018-11-16 19:55 | PN ---
PROGRESS NOTE DATE OF SERVICE: 11/16/2018 This 52-year-old gentleman was admitted after recurrent abdominal pain, had laparotomy and adhesiolysis. The patient closely monitored. No chest pain. No palpitations. The patient still has NG tube. EXAM: Alert and oriented x3. Pulse 105, blood pressure 143/84, respiration 12, temperature 98.2, pulse ox 94% on room air. HEENT: Conjunctivae normal. NECK: No jugular venous distention. CARDIOVASCULAR: S1, S2 muffled. RESPIRATORY: Breath sounds diminished in the bases. A few scattered rhonchi and crackles. ABDOMEN: Soft, status post surgery. LEGS: Unchanged. NERVOUS SYSTEM: Unchanged. LABS: WBC 13.2, hemoglobin 11.7, sodium 140, potassium 3.7. ASSESSMENT: 1. Recurrent abdominal pain, possibly small-bowel obstruction status post exploratory laparotomy and as well as extensive lysis of adhesions. 2. Severe hypokalemia, improved. 3. Fever possible urinary tract infection, present on admission. 4. History of recent bowel obstruction. 5. History of coronary artery disease. 6. Hypertension. 7. Hyperlipidemia. 8. History of gluteal wounds. 9. Spina bifida. 10.Myelodysplasia history. 11.History of paraplegia. 12.History of lithotripsy. 13.History of colostomy reversal as a child. 14.History of ventriculoperitoneal shunt. 15.History of nicotine dependence. RECOMMENDATIONS AND DISCUSSION: I recommend to continue current management, continue to monitor and symptomatic treatment. Potassium has improved significantly at this time. Continue the rest of medications. Prognosis guarded. Further recommendations to follow. MMODL / IJN: [id number] /
[2018-11-17] MEDS: PANTOPRAZOLE 40 MG/10 ML VIAL IV SCH (07:45)
[2018-11-17] MEDS: HEPARIN SODIUM,PORCINE 5,000 UNIT/ML 1 ML VIAL SQ SCH ×2 (07:45→15:17)
[2018-11-17] MEDS: 0.9% NACL WITH KCL 40 MEQ/L 1,000 ML IV SCH ×3 (07:45→20:16)
[2018-11-17] MEDS: ATENOLOL 25 MG TAB PO SCH (07:46)
[2018-11-17] MEDS: PIPERACILLIN-TAZOBACTAM 3.375 GM in SODIUM CHLORIDE 0.9% 100 ML IVPB SCH ×2 (07:46→15:18)
[2018-11-17] MEDS: OXYBUTYNIN XL 5 MG TAB.ER.24 PO SCH ×2 (07:46→20:16)
[2018-11-17] MEDS ORDERED: BISACODYL 10 MG SUPP RECTAL SCH (09:30)
[2018-11-17] MEDS ORDERED: SODIUM CHLORIDE 0.9% 500 ML 500 ML IV ONE (10:55)
--- NOTE | 2018-11-17 10:57 | P.PN ---
<Keli Price A - Last Filed: 11/17/18 10:51> Subjective Progress Note Date: 11/17/18 CHIEF COMPLAINT: small bowel obstruction HISTORY OF PRESENT ILLNESS: Patient is status post exploratory laparotomy with extensive lysis of adhesions. POD #2. Patient examined at the bedside with Dr. White. NG to LIS with bilious drainage. Patient denies passing flatus or having BM. Reports pain is tolerable. Intake over last 24 hours per EMR is 1500 with output of 2150cc with a negative fluid balance of 650cc. Patient is receiving IV fluids at 100cc/hr. Lab work from this morning is pending. PHYSICAL EXAM: VITAL SIGNS: Reviewed. Tachycardic. GENERAL: Well-developed in no acute distress. HEENT: NG to LIS with bilious drainage. No sclera icterus. Extraocular movements grossly intact. Moist buccal mucosa. Head is atraumatic, normocephalic. Hears conversational speech. No nasal drainage. NECK: Supple without lymphadenopathy. CHEST: Non-labored respirations and equal bilateral excursions. CARDIOVASCULAR: Tachycardic. Palpable 2+ radial pulses. ABDOMEN: Soft. Nondistended. Appropriate surgical tenderness. Dressing to midline incision intact with small areas of serosanguineous drainage. Patient with old surgical scars to left lower quadrant and right lower quadrant. MUSCULOSKELETAL: Paraplegic. No clubbing, cyanosis or edema. NEUROLOGIC: No focal or lateralizing signs. Cranial nerves II through XII grossly intact. PSYCH: Appropriate affect. Alert and oriented to person, place and time. SKIN: Well perfused. Good skin turgor. ASSESSMENT: 1. Recurrent small bowel obstruction 2. Sepsis, present on admission, patient presented with leukocytosis, tachycardia, and fever 3. Recent hospitalization for small bowel obstruction 4. History of colostomy with reversal as a child 5. Hypokalemia 6. Hypomagnesemia PLAN: 1. Continue antibiotics. Monitor WBC. Infectious disease is on consult 2. Continue IV fluids. 500cc fluid bolus x 1 3. NPO except ice chips and popsicles 4. Continue NG tube until patient begins passing flatus 5. Recommend increasing beta andrea for optimal heart rate control 6. Incentive spirometry 7. Daily dulcolax suppositories 8. Await results of morning blood work Nurse practitioner note has been reviewed by physician. Signing provider agrees with the documented findings, assessment, and plan of care. Objective - Vital Signs Vital signs: Vital Signs Temp 99.7 F H 11/17/18 07:47 Pulse 124 H 11/17/18 07:47 Resp 18 11/17/18 07:47 BP 134/67 11/17/18 07:47 Pulse Ox 95 11/17/18 07:47 Intake & Output 11/16/18 11/17/18 11/17/18 18:59 06:59 18:59 Intake Total 1500 Output Total 1600 550 Balance -100 -550 Weight 65.771 kg 65.771 kg Intake: Intake, IV Titration 1500 Amount ACETAMINOPHEN IV (For NPO 100 ) 1,000 mg In Empty Bag 1 bag @ 400 mls/hr IVPB Q6HR [facility] Rx#:[id number] Magnesium Sulfate-D5w Pmx 200 1 gm In Dextrose/Water 1 100ml.bag @ 100 mls/hr IVPB Q1H [facility] Rx#: [id number] Potassium Chloride 10 meq 200 In Water For Injection 1 100ml.bag @ 100 mls/hr IVPB Q1HR [facility] Rx#: [id number] Sodium Chloride 0.9% 1, 1000 000 ml @ 999 mls/hr IV . Q1H1M [facility] Rx#:[id number] Output: Gastric Drainage 1600 Urine 550 Other: Voiding Method Indwelling Catheter Indwelling Catheter Indwelling Catheter - Labs CBC & Chem 7: 11/16/18 03:13 11/16/18 08:41 Labs: Microbiology - Last 24 Hours (Table) 11/13/18 22:21 Blood Culture - Preliminary Blood No Growth after 72 hours 11/13/18 02:15 Urine Culture - Final Urine,Catheterized Escherichia coli Assessment and Plan (1) Sepsis Current Visit: Yes Status: Acute Code(s): A41.9 - SEPSIS, UNSPECIFIED ORGANISM SNOMED Code(s): 00221824 (2) Small bowel obstruction Current Visit: Yes Status: Acute Code(s): K56.609 - UNSP INTESTNL OBST, UNSP TO PARTIAL VERSUS COMPLETE OBST SNOMED Code(s): 487962898 (3) Abdominal pain Current Visit: No Status: Acute Code(s): R10.9 - UNSPECIFIED ABDOMINAL PAIN SNOMED Code(s): 38381452 (4) Tachycardia Current Visit: No Status: Acute Code(s): R00.0 - TACHYCARDIA, UNSPECIFIED SNOMED Code(s): 1360166 <Caroline White N - Last Filed: 11/17/18 16:44> Subjective Leukocytosis has increased. Agree with broad-spectrum antibiotics as patient also at risk for pneumonia and or sinusitis with NG tube. At this time, contin ue bowel rest. Agree with rectal suppositories for history of spina bifida and need for rectal stimulation. Objective - Vital Signs Vital signs: Vital Signs Temp 99.4 F 11/17/18 13:47 Pulse 122 H 11/17/18 13:47 Resp 18 11/17/18 16:00 BP 130/83 11/17/18 13:47 Pulse Ox 95 11/17/18 13:47 Intake & Output 11/16/18 11/17/18 11/17/18 18:59 06:59 18:59 Intake Total 1500 1390 Output Total 3576 655 9008 Balance -100 -550 390 Weight 65.771 kg 65.771 kg Intake: Intake, IV Titration 1500 900 Amount 0.9% NaCl with KCl 40 Meq 800 /l 1,000 ml @ 100 mls/hr IV .Q10H [facility] Rx#: [id number] ACETAMINOPHEN IV (For NPO 100 ) 1,000 mg In Empty Bag 1 bag @ 400 mls/hr IVPB Q6HR [facility] Rx#:[id number] Magnesium Sulfate-D5w Pmx 200 1 gm In Dextrose/Water 1 100ml.bag @ 100 mls/hr IVPB Q1H [facility] Rx#: [id number] Piperacillin-Tazobactam 3 100 .375 gm In Sodium Chloride 0.9% 100 ml @ 25 mls/hr IVPB Q8H [facility] Rx#: [id number] Potassium Chloride 10 meq 200 In Water For Injection 1 100ml.bag @ 100 mls/hr IVPB Q1HR [facility] Rx#: [id number] Sodium Chloride 0.9% 1, 1000 000 ml @ 999 mls/hr IV . Q1H1M [facility] Rx#:[id number] Oral 490 Output: Gastric Drainage 1600 1000 Urine 550 Other: Voiding Method Indwelling Catheter Indwelling Catheter Indwelling Catheter - Labs CBC & Chem 7: 11/17/18 11:36 11/17/18 11:36 Labs: Abnormal Lab Results - Last 24 Hours (Table) 11/17/18 11/17/18 Range/Units 11:36 11:36 WBC 16.4 H (3.8-10.6) k/uL Hgb 12.3 L (13.0-17.5) gm/dL Hct 38.7 L (39.0-53.0) % RDW 16.5 H (11.5-15.5) % Neutrophils # (Manual) 12.60 H (1.3-7.7) k/uL Metamyelocytes # (Man) 0.16 H (0) k/uL Myelocytes # (Manual) 0.16 H (0) k/uL Chloride 117 H (98-107) mmol/L Carbon Dioxide 14 L (22-30) mmol/L Creatinine 0.49 L (0.66-1.25) mg/dL Calcium 8.1 L (8.4-10.2) mg/dL Microbiology - Last 24 Hours (Table) 11/13/18 22:21 Blood Culture - Preliminary Blood No Growth after 72 hours
[2018-11-17 11:54] LABS: Anisocytosis Slight; HCT 38.7 % (39.0-53.0); HGB 12.3 gm/dL (13.0-17.5); Hypochromasia Moderate; MCH 27.1 pg (25.0-35.0); MCHC 31.8 g/dL (31.0-37.0); MCV 85.3 fL (80.0-100.0); Mean Platelet Volume 7.5; Platelet Count 301 k/uL (150-450); RBC 4.54 m/uL (4.30-5.90); RDW 16.5 % (11.5-15.5); WBC 16.4 k/uL (3.8-10.6)
[2018-11-17 12:01] LABS: African American GFR (CKD) >90 (>60 ml/min/1.73 sqM); Anion Gap 14 mmol/L; Blood Urea Nitrogen 12 mg/dL (9-20); Calcium 8.1 mg/dL (8.4-10.2); Carbon Dioxide 14 mmol/L (22-30); Chloride 117 mmol/L (98-107); Glucose 79 mg/dL (74-99); Magnesium 2.1 mg/dL (1.6-2.3); Sodium 145 mmol/L (137-145)
[2018-11-17 12:21] LABS: Band Neutrophils % 2 %; Eosinophils # (M) 0.33 k/uL (0-0.7); Lymphocytes # (M) 2.79 k/uL (1.0-4.8); Metamyelocytes # (M) 0.16 k/uL (0); Metamyelocytes % 1 %; Monocytes # (M) 0.66 k/uL (0-1.0); Myelocytes # (M) 0.16 k/uL (0); Myelocytes % 1 %; Neutrophils % (M) 75 %; Nucleated Red Blood Cells 0 /100 WBC (0-0); Total Cells Counted 200
[2018-11-17 12:23] LABS: Polychromasia Present
[2018-11-17] MEDS: MORPHINE SULFATE 4 MG/ML SYRINGE IV PRN ×2 (15:15→19:39)
--- NOTE | 2018-11-17 20:49 | PN ---
PROGRESS NOTE DATE OF SERVICE: 11/17/2018 This 52-year-old gentleman, admitted with recurrent abdominal pain with a small-bowel obstruction, had exploratory laparotomy as well as extensive lysis of adhesions. The patient also had severe hypokalemia, which has improved. The patient is being closely monitored. No chest pain. No palpitations. No fever. On exam, alert and oriented x3. Pulse 122, blood pressure 130/83, respiration 18, temperature 99.4, pulse ox 94% on room air. HEENT: Conjunctivae normal. NECK: No jugular venous distention. CARDIOVASCULAR SYSTEM: S1, S2 muffled. RESPIRATORY SYSTEM: Breath sounds diminished at the bases. Scattered rhonchi. ABDOMEN: Soft. Status post surgery. NG tube in situ. LEGS: No edema. No swelling. NERVOUS SYSTEM: No focal deficit. LABS: WBC 16.4. Sodium 145, potassium 4.5. ASSESSMENT: 1. Recurrent abdominal pain, possible small-bowel obstruction, status post exploratory laparotomy as well as extensive lysis of adhesions. 2. Severe hypokalemia, improved. 3. Fever; possible urinary tract infection, present on admission. 4. Tachycardia. 5. History of recent bowel obstruction. 6. Increased white count. 7. History of coronary artery disease. 8. Hypertension. 9. Hyperlipidemia. 10.History of gluteal wound. 11.Spina bifida. 12.Myelodysplasia history. 13.History of paraplegia. 14.History of lithotripsy. 15.History of colostomy reversal as a child. 16.History of ventriculoperitoneal shunt. 17.History of nicotine dependence. RECOMMENDATIONS AND DISCUSSION: I recommend to continue current medications, continue with the monitoring, symptomatic treatment. We will continue to monitor along with Surgery. Infectious Disease is also following the patient closely. The patient is currently on IV Zosyn. We will continue to monitor. Guarded prognosis. Further recommendations to follow. MMODL / IJN: [id number] /
[2018-11-17] MEDS: CEFEPIME 2 GM in SODIUM CHLORIDE 0.9% 100 ML IVPB SCH (22:27)
--- NOTE | 2018-11-17 22:50 | PN ---
PROGRESS NOTE DATE OF SERVICE: 11/17/2018 REASON FOR FOLLOWUP: Fever, UTI/abdominal source. INTERVAL HISTORY: The patient is currently afebrile. The patient has been breathing comfortably. Denies having any chest pain or any cough. Still having some abdominal pain but no worsening. Has not passed any gas. Still has the NG in. PHYSICAL EXAMINATION: Blood pressure is 132/90 with a pulse of 122, temperature of 98. He is 96% on room air. General description is a middle-aged male lying in bed in no distress. RESPIRATORY SYSTEM: Unlabored breathing. Clear to auscultation anteriorly. HEART: S1, S2. Regular rate and rhythm. ABDOMEN: Soft. Mildly distended. EXTREMITIES: No edema of the feet. LABS: Hemoglobin is 12.3, white count 16.4, BUN of 12, creatinine 0.49. Urine with an E coli that is resistant to Zosyn. DIAGNOSTIC IMPRESSION AND PLAN: Patient with fever with concern for possible urinary source in this patient who also had small bowel obstruction, status post extensive surgery and release of adhesions. At this time we will discontinue Zosyn and start the patient on cefepime and Flagyl to cover both the urinary as well as abdominal source and monitor his clinical course as well as white count closely. Continue supportive care. MMODL / IJN: [id number] / KASSY
[2018-11-18] MEDS: metroNIDAZOLE-NS PMX 500 MG in SALINE 1 100ML.BAG IVPB SCH ×3 (00:05→15:45)
[2018-11-18] MEDS: HEPARIN SODIUM,PORCINE 5,000 UNIT/ML 1 ML VIAL SQ SCH ×3 (00:06→15:44)
[2018-11-18] MEDS: 0.9% NACL WITH KCL 40 MEQ/L 1,000 ML IV SCH (05:17)
[2018-11-18] MEDS: PANTOPRAZOLE 40 MG/10 ML VIAL IV SCH (09:03)
[2018-11-18] MEDS: CEFEPIME 2 GM in SODIUM CHLORIDE 0.9% 100 ML IVPB SCH ×2 (09:03→20:35)
[2018-11-18] MEDS: OXYBUTYNIN XL 5 MG TAB.ER.24 PO SCH ×2 (09:04→20:34)
[2018-11-18] MEDS: ATENOLOL 25 MG TAB PO SCH (09:04)
[2018-11-18 09:14] LABS: Anisocytosis Slight; Basophils # (A) 0.1 k/uL (0-0.2); Basophils % (A) 0 %; Eosinophils # (A) 0.2 k/uL (0-0.7); Eosinophils % (A) 1 %; HCT 33.7 % (39.0-53.0); HGB 10.6 gm/dL (13.0-17.5); Hypochromasia Marked; Lymphocytes # (A) 1.1 k/uL (1.0-4.8); Lymphocytes % (A) 7 %; MCH 27.3 pg (25.0-35.0); MCHC 31.4 g/dL (31.0-37.0); MCV 86.8 fL (80.0-100.0); Mean Platelet Volume 7.4; Monocytes # (A) 0.7 k/uL (0-1.0); Monocytes % (A) 4 %; Neutrophils % (A) 85 %; Platelet Count 322 k/uL (150-450); RBC 3.88 m/uL (4.30-5.90); RDW 16.5 % (11.5-15.5); WBC 16.4 k/uL (3.8-10.6)
[2018-11-18 09:22] LABS: African American GFR (CKD) >90 (>60 ml/min/1.73 sqM); Anion Gap 16 mmol/L; Blood Urea Nitrogen 14 mg/dL (9-20); Calcium 8.3 mg/dL (8.4-10.2); Carbon Dioxide 12 mmol/L (22-30); Chloride 122 mmol/L (98-107); Glucose 62 mg/dL (74-99); Magnesium 2.1 mg/dL (1.6-2.3); Sodium 150 mmol/L (137-145)
--- NOTE | 2018-11-18 10:21 | P.PN ---
Subjective Progress Note Date: 11/18/18 CHIEF COMPLAINT: Small bowel obstruction HISTORY OF PRESENT ILLNESS: The patient is a 52-year-old male postop day 3 status post extensive lysis of adhesions over 4+hrs, 11/15/2018. He is passing moderate flatus. Abdominal gas bloat resolved. He feels much better and ready to drink and eat. "When can I go home?" is his main concern. ROS: No reports of nausea and vomiting. Moderate bowel movements. No fevers or chills. No new chest pain. No productive sputum PHYSICAL EXAM: VITAL SIGNS: Reviewed CONSTITUTIONAL: Well developed and in no acute distress. EYES: Conjuctivae without sclera icterus. Extraocular movements grossly intact. HEAD, EARS, NOSE, THROAT: Moist buccal mucosa. Head is atraumatic, normocephalic. Hears conversational speech. No nasal drainage. NECK: Supple. No thyroidomegaly. RESPIRATORY: Non-labored respirations and equal bilateral excursions. CARDIOVASCULAR: Palpable 2+ radial pulses. Regular rate. Regular rhythm. ABDOMEN: Incisions intact. Soft. No peritonitis. MUSCULOSKELETAL: Paraplegic with lower extremities contractures. SKIN: Good skin turgor. Well perfused. NEUROLOGIC: Cranial nerves I through XII grossly intact. No focal or lateralizing signs. PSYCH: Appropriate affect. Alert and oriented to person, place and time. CLINCAL LABS: White blood cell count elevated over 16,000. Microbiology reviewed. ASSESSMENT: 1. Small bowel obstruction s/p extensive lysis of adhesions 2. Tachycardia 3. Multi-drug resistant UTI PLAN: 1. Adjust antibiotics 2. I personally removed his NGT at bedside. 3. For anemia, check iron levels 4. Anticipated discharge pending correction of leukocytosis and tachycardia Objective - Vital Signs Vital signs: Vital Signs Temp 99.5 F 11/18/18 07:46 Pulse 130 H 11/18/18 07:46 Resp 18 11/18/18 07:46 BP 107/68 11/18/18 07:46 Pulse Ox 94 L 11/18/18 07:46 Intake & Output 11/17/18 11/18/18 11/18/18 18:59 06:59 18:59 Intake Total 1390 1230 Output Total 7143 3025 Balance -360 -1455 Weight 65.771 kg Intake: Intake, IV Titration 900 1200 Amount 0.9% NaCl with KCl 40 Meq 800 1200 /l 1,000 ml @ 100 mls/hr IV .Q10H [facility] Rx#: [id number] Piperacillin-Tazobactam 3 100 .375 gm In Sodium Chloride 0.9% 100 ml @ 25 mls/hr IVPB Q8H [facility] Rx#: [id number] Oral 490 30 Output: Gastric Drainage 1400 1075 Urine 350 1610 Uretheral (Porter) 500 Other: Voiding Method Indwelling Catheter Indwelling Catheter Indwelling Catheter # Bowel Movements 1 1 - Labs CBC & Chem 7: 11/18/18 08:36 11/18/18 08:36 Labs: Abnormal Lab Results - Last 24 Hours (Table) 11/17/18 11/17/18 11/18/18 Range/Units 11:36 11:36 08:36 WBC 16.4 H 16.4 H (3.8-10.6) k/uL RBC 3.88 L (4.30-5.90) m/uL Hgb 12.3 L 10.6 L (13.0-17.5) gm/dL Hct 38.7 L 33.7 L (39.0-53.0) % RDW 16.5 H 16.5 H (11.5-15.5) % Neutrophils # 14.0 H (1.3-7.7) k/uL Neutrophils # (Manual) 12.60 H (1.3-7.7) k/uL Metamyelocytes # (Man) 0.16 H (0) k/uL Myelocytes # (Manual) 0.16 H (0) k/uL Sodium (137-145) mmol/L Chloride 117 H (98-107) mmol/L Carbon Dioxide 14 L (22-30) mmol/L Creatinine 0.49 L (0.66-1.25) mg/dL Glucose (74-99) mg/dL Calcium 8.1 L (8.4-10.2) mg/dL 11/18/18 Range/Units 08:36 WBC (3.8-10.6) k/uL RBC (4.30-5.90) m/uL Hgb (13.0-17.5) gm/dL Hct (39.0-53.0) % RDW (11.5-15.5) % Neutrophils # (1.3-7.7) k/uL Neutrophils # (Manual) (1.3-7.7) k/uL Metamyelocytes # (Man) (0) k/uL Myelocytes # (Manual) (0) k/uL Sodium 150 H (137-145) mmol/L Chloride 122 H (98-107) mmol/L Carbon Dioxide 12 L (22-30) mmol/L Creatinine 0.55 L (0.66-1.25) mg/dL Glucose 62 L (74-99) mg/dL Calcium 8.3 L (8.4-10.2) mg/dL Microbiology - Last 24 Hours (Table) 11/13/18 22:21 Blood Culture - Preliminary Blood No Growth after 96 hours Assessment and Plan (1) UTI (urinary tract infection) Current Visit: Yes Status: Acute Code(s): N39.0 - URINARY TRACT INFECTION, SITE NOT SPECIFIED SNOMED Code(s): 22726705 (2) Sepsis Current Visit: Yes Status: Acute Code(s): A41.9 - SEPSIS, UNSPECIFIED ORGANISM SNOMED Code(s): 31281025 (3) Small bowel obstruction Current Visit: Yes Status: Acute Code(s): K56.609 - UNSP INTESTNL OBST, UNSP TO PARTIAL VERSUS COMPLETE OBST SNOMED Code(s): 760652660 (4) Paraplegia Current Visit: Yes Status: Acute Code(s): G82.20 - PARAPLEGIA, UNSPECIFIED SNOMED Code(s): 15081475 (5) Spina bifida Current Visit: Yes Status: Acute Code(s): Q05.9 - SPINA BIFIDA, UNSPECIFIED SNOMED Code(s): 73936804
[2018-11-18] MEDS: SODIUM CHLORIDE 0.45% 1,000 ML with POTASSIUM CHLORIDE 40 MEQ IV SCH ×2 (13:36)
[2018-11-18] MEDS: MORPHINE SULFATE 4 MG/ML SYRINGE IV PRN ×2 (15:44→21:49)
--- NOTE | 2018-11-18 16:24 | XR ---
EXAMINATION TYPE: XR chest 1V portable DATE OF EXAM: 11/18/2018 COMPARISON: 11/15/2018 HISTORY: Postop. Heart failure. TECHNIQUE: Single frontal view of the chest is obtained. FINDINGS: There is no heart failure. There is poor inspiration. Lungs are clear of consolidation. Th ere is apparent ventriculoperitoneal shunt catheter. IMPRESSION: Poor inspiration unchanged. No pulmonary consolidation or heart failure.
[2018-11-18 17:57] LABS: Iron Saturation 10.16 (15.00-50.00)
--- NOTE | 2018-11-18 20:14 | PN ---
PROGRESS NOTE DATE OF SERVICE: 11/18/2018. This 52-year-old gentleman who was admitted with recurrent abdominal pain with possible small bowel obstruction. Patient had surgery and adhesiolysis. The patient improved significantly. No chest pain. No palpitations. No fever. REVIEW OF SYSTEMS: CARDIOVASCULAR: No angina, no palpitations. RESPIRATION: As mentioned earlier. GASTROINTESTINAL: As mentioned earlier. no dysuria. NERVOUS SYSTEM: No numbness or weakness. CURRENT MEDICATIONS: Involved and include: 1. Tenormin 25 mg p.o. daily. 2. Hurricane spray. 3. Cefepime 2 g IV b.i.d. 4. Heparin. 5. Flagyl 500 mg IV q.8. 6. Replacement protocol. 7. Morphine p.r.n. 8. Narcan 0.2 q.2h p.r.n. 9. Zofran 4 mg IV q.i.d. 11.Protonix 40 mg daily. EXAM: Alert and oriented x3. Pulse 107. Blood pressure 109/64. Respirations 16, temperature 99.8, pulse ox 97% on room air. HEENT: Conjunctivae normal. NECK: No JVD. CARDIOVASCULAR: S1, S2 muffled. RESPIRATIONS: Breath sounds diminished in the bases. A few rhonchi scattered rhonchi. No crackles. ABDOMEN: Soft, status post surgery. No guarding or rigidity, diffusely distention, mild. Bowel sounds diminished. LEGS: No edema. No swelling. CENTRAL NERVOUS SYSTEM: No focal deficits. LABS: WBC 16.2, hemoglobin 10.6, sodium 150, potassium 4. ASSESSMENT: 1. Recurrent abdominal pain, possible small-bowel obstruction, status post exploratory laparotomy as well as extensive adhesiolysis. 2. Severe hypokalemia, improved. 3. Fever, possible urinary tract infection, present on admission. 4. Tachycardia, sinus. 5. History of small bowel obstruction. 6. Increased WBC. 7. History of coronary artery disease. 8. Hypertension. 9. Hyperlipidemia. 10.History of gluteal 1. 11.Spina bifida. 12.Myelodysplasia history. 13.History of paraplegia. 14.History of lithotripsy. 15.History of colostomy reversal as a child. 16.History of ventriculoperitoneal shunt. 17.History of nicotine dependence. 18.E. coli urinary tract infection. RECOMMENDATIONS AND DISCUSSION: This 52-year-old gentleman who presented with multiple medical problems, we will monitor the patient closely, continue the current medications, symptomatic treatment. Patient is on beta blockers. Recommend to continue the beta blockers. Otherwise, I would also recommend baseline troponins and EKG also. Otherwise, we will continue with broad-spectrum IV antibiotics. White count is elevated. Urine culture showed E coli. Otherwise, we will continue to monitor and further recommendations to follow. I would also repeat the blood cultures also at this time. See orders for details. MMODL / IJN: [id number] / MTDD
--- NOTE | 2018-11-18 21:44 | PN ---
PROGRESS NOTE DATE OF SERVICE: 11/18/2018. REASON FOR FOLLOWUP: Multidrug resistant UTI. INTERVAL HISTORY: The patient is currently afebrile. Patient has been breathing comfortably. Denies having any chest pain or cough. The patient's NG has been discontinued. He did have a bowel movement. PHYSICAL EXAMINATION: Blood pressure 109/55, the pulse 107, temperature 99.8. He is 96% on room air. General description is a middle-aged male lying in bed in no distress. Respiratory system: Unlabored breathing, clear to auscultation anteriorly. Heart S1, S2. Regular rate and rhythm. ABDOMEN: Soft, no rigidity. LABS: Hemoglobin is 10.7, white count of 16.4 with a BUN of 14, creatinine 0.55. Urine with an E coli resistant to Zosyn. DIAGNOSTIC IMPRESSION AND PLAN: Patient with multiresistant E coli urinary tract infection. Patient is currently covered with cefepime because of his resistance to Zosyn. However we do have oral option available that will be transitioned to oral antibiotic on discharge. Continue supportive care. MMODL / IJN: [id number] /
[2018-11-19] MEDS: HEPARIN SODIUM,PORCINE 5,000 UNIT/ML 1 ML VIAL SQ SCH ×4 (00:24→23:39)
[2018-11-19] MEDS: metroNIDAZOLE-NS PMX 500 MG in SALINE 1 100ML.BAG IVPB SCH ×4 (00:25→23:41)
[2018-11-19] MEDS: SODIUM CHLORIDE 0.45% 1,000 ML with POTASSIUM CHLORIDE 40 MEQ IV SCH ×4 (03:27→17:57)
[2018-11-19] MEDS: MORPHINE SULFATE 4 MG/ML SYRINGE IV PRN ×3 (03:31→21:41)
--- NOTE | 2018-11-19 04:41 | XR ---
EXAM: XR Chest, 1 View CLINICAL HISTORY: ITS.REASON XR Reason: ng tube TECHNIQUE: Frontal view of the chest. COMPARISON: No relevant prior studies available. FINDINGS: Lungs: Limited evaluation of the lungs with markedly diminished lung volumes, similar to the previous exam. No obvious significant interval change. Subsegmental opacities in the left infrahilar region are stable. Pleural space: Unremarkable. No pneumothorax. Heart: Unremarkable. No cardiomegaly. Mediastinum: Unremarkable. Bones/joints: No obvious osseous abnormality identified. Tubes, lines and devices: A nasogastric tube traverses the mediastinum with the tip noted in the left upper quadrant in the region of the proximal body of the stomach. Vertical calcification of the right cervical region and thorax is presumed related to prior ventriculoperitoneal shunt tubing. IMPRESSION: A nasogastric tube traverses the mediastinum with the tip noted in the left upper quadrant in the region of the proximal body of the stomach.
[2018-11-19 06:42] LABS: Anisocytosis Slight; Basophils # (A) 0.1 k/uL (0-0.2); Basophils % (A) 0 %; Eosinophils # (A) 0.3 k/uL (0-0.7); Eosinophils % (A) 2 %; HGB 10.5 gm/dL (13.0-17.5); Hypochromasia Marked; Lymphocytes # (A) 1.3 k/uL (1.0-4.8); Lymphocytes % (A) 8 %; MCH 26.5 pg (25.0-35.0); MCV 85.7 fL (80.0-100.0); Mean Platelet Volume 7.8; Monocytes # (A) 0.7 k/uL (0-1.0); Monocytes % (A) 4 %; Neutrophils # (A) 13.1 k/uL (1.3-7.7); Neutrophils % (A) 83 %; Platelet Count 289 k/uL (150-450); RBC 3.96 m/uL (4.30-5.90); RDW 16.6 % (11.5-15.5); WBC 15.8 k/uL (3.8-10.6)
[2018-11-19 06:53] LABS: African American GFR (CKD) >90 (>60 ml/min/1.73 sqM); Anion Gap 13 mmol/L; Blood Urea Nitrogen 13 mg/dL (9-20); Calcium 8.2 mg/dL (8.4-10.2); Carbon Dioxide 15 mmol/L (22-30); Chloride 118 mmol/L (98-107); Glucose 93 mg/dL (74-99); Potassium 3.6 mmol/L (3.5-5.1); Sodium 146 mmol/L (137-145)
[2018-11-19] MEDS: OXYBUTYNIN XL 5 MG TAB.ER.24 PO SCH ×2 (07:27→21:36)
[2018-11-19] MEDS: ATENOLOL 25 MG TAB PO SCH (07:27)
[2018-11-19] MEDS: CEFEPIME 2 GM in SODIUM CHLORIDE 0.9% 100 ML IVPB SCH ×2 (08:53→21:46)
[2018-11-19] MEDS: PANTOPRAZOLE 40 MG/10 ML VIAL IV SCH (08:53)
--- NOTE | 2018-11-19 10:52 | P.PN ---
Subjective Progress Note Date: 11/19/18 CHIEF COMPLAINT: Small bowel obstruction HISTORY OF PRESENT ILLNESS: The patient is a 52-year-old male postop day 4 status post extensive lysis of adhesions over 4+hrs, 11/15/2018. Overnight, he had increased abdominal distention. NG placed back in yesterday. He reports that he is not aware of passing any gas yesterday and very little today. Over 2200 mL suctioned from the stomach with NG tube. He had moderate bowel movements yesterday. ROS: No fevers or chills. No shortness of breath PHYSICAL EXAM: VITAL SIGNS: Reviewed CONSTITUTIONAL: Well developed and in no acute distress. EYES: Conjuctivae without sclera icterus. Extraocular movements grossly intact. HEAD, EARS, NOSE, THROAT: Moist buccal mucosa. Head is atraumatic, normocephalic. Hears conversational speech. No nasal drainage. NECK: Supple. No thyroidomegaly. RESPIRATORY: Non-labored respirations and equal bilateral excursions. CARDIOVASCULAR: Palpable 2+ radial pulses. Regular rate. Regular rhythm. ABDOMEN: Decreased distention. No peritonitis. Dressing intact. NG with bilious drainage over 2200 mL. MUSCULOSKELETAL: Paraplegic with lower extremities contractures. SKIN: Good skin turgor. Well perfused. NEUROLOGIC: Cranial nerves I through XII grossly intact. No focal or lateralizing signs. PSYCH: Appropriate affect. Alert and oriented to person, place and time. STUDIES: XRays reviewed without free air. CLINCAL LABS: White blood cell count down from over 16,000 to over 15,000. ASSESSMENT: 1. Small bowel obstruction s/p extensive lysis of adhesions 2. Tachycardia 3. Multi-drug resistant UTI 4. Spina bifida with paraplegia PLAN: 1. Change to NPO status. 2. Rectal stimulation daily for spina bifida. 3. Add reglan for GI motility. 4. Continue nasogastric tube. 5. Discharge on hold as bowel function not completely resumed. Objective - Vital Signs Vital signs: Vital Signs Temp 98.6 F 11/19/18 07:30 Pulse 116 H 11/19/18 07:30 Resp 16 11/19/18 07:30 BP 131/89 11/19/18 07:30 Pulse Ox 95 11/19/18 07:30 Intake & Output 11/18/18 11/19/18 11/19/18 18:59 06:59 18:59 Intake Total 1080 800 Output Total 600 2175 425 Balance 082 -9992 -425 Intake: Intake, IV Titration 800 Amount Cefepime 2 gm In Sodium 100 Chloride 0.9% 100 ml @ 200 mls/hr IVPB Q12HR [facility] Rx#:[id number] Sodium Chloride 0.45% 1, 600 000 ml @ 75 mls/hr IV . [id number] [facility] with Potassium Chloride 40 meq Rx#:[id number] metroNIDAZOLE-NS PMX 500 100 mg In Saline 1 100ml.bag @ 100 mls/hr IVPB Q8HR [facility] Rx#:[id number] Oral 1080 Output: Gastric Drainage 1800 425 Urine 600 375 Other: Voiding Method Indwelling Catheter Indwelling Catheter Indwelling Catheter # Bowel Movements 2 3 1 - Labs CBC & Chem 7: 11/19/18 05:49 11/19/18 05:49 Labs: Abnormal Lab Results - Last 24 Hours (Table) 11/18/18 11/19/18 11/19/18 Range/Units 08:36 05:49 05:49 WBC 15.8 H (3.8-10.6) k/uL RBC 3.96 L (4.30-5.90) m/uL Hgb 10.5 L (13.0-17.5) gm/dL Hct 34.0 L (39.0-53.0) % RDW 16.6 H (11.5-15.5) % Neutrophils # 13.1 H (1.3-7.7) k/uL Sodium 146 H (137-145) mmol/L Chloride 118 H (98-107) mmol/L Carbon Dioxide 15 L (22-30) mmol/L Creatinine 0.54 L (0.66-1.25) mg/dL Calcium 8.2 L (8.4-10.2) mg/dL Iron 19 L (65-175) ug/dL TIBC 187 L (228-460) ug/dL Iron Saturation 10.16 L (15.00-50.00) Microbiology - Last 24 Hours (Table) 11/13/18 22:21 Blood Culture - Preliminary Blood No Growth after 120 hours Assessment and Plan (1) UTI (urinary tract infection) Current Visit: Yes Status: Acute Code(s): N39.0 - URINARY TRACT INFECTION, SITE NOT SPECIFIED SNOMED Code(s): 86813782 (2) Sepsis Current Visit: Yes Status: Acute Code(s): A41.9 - SEPSIS, UNSPECIFIED ORGANISM SNOMED Code(s): 76014538 (3) Small bowel obstruction Current Visit: Yes Status: Acute Code(s): K56.609 - UNSP INTESTNL OBST, UNSP TO PARTIAL VERSUS COMPLETE OBST SNOMED Code(s): 281144727 (4) Paraplegia Current Visit: Yes Status: Acute Code(s): G82.20 - PARAPLEGIA, UNSPECIFIED SNOMED Code(s): 43729720 (5) Spina bifida Current Visit: Yes Status: Acute Code(s): Q05.9 - SPINA BIFIDA, UNSPECIFIED SNOMED Code(s): 18134553
[2018-11-19] MEDS: SODIUM FERRIC GLUCONAT-SUCROSE 125 MG in SODIUM CHLORIDE 0.9% 100 ML IVPB SCH (11:51)
[2018-11-19] MEDS ORDERED: ATENOLOL 25 MG TAB PO STA (12:45)
[2018-11-19] MEDS ORDERED: MVI, ADULT NO.4 WITH VIT K 10 ML, TRACE (CONC-1ML/DOSE) 1 ML in AMINO ACID 4.25%-D10W+L... IV ONE ×3 (15:00)
[2018-11-19] MEDS: POTASSIUM CHLORIDE 10 MEQ in WATER FOR INJECTION 1 100ML.BAG IVPB SCH ×2 (15:22→17:58)
--- NOTE | 2018-11-19 20:41 | PN ---
PROGRESS NOTE DATE OF SERVICE: 11/19/2018 This is a 52-year-old gentleman admitted after bowel obstruction had surgery. The patient had NG tube and NG tube has been removed, but because of difficulties and abdominal distention, the NG tube was reinserted. No chest pain. No palpitations. No fever. Patient also had some tachycardia. EXAM: Alert and oriented x3. Pulse 116, blood pressure 131/89, respirations 16, temperature 98.6, pulse ox 94% on room air. HEENT: Conjunctivae normal. NECK: No jugular venous distention. CARDIOVASCULAR: S1, S2. RESPIRATORY: Breath sounds diminished in the bases. A few scattered rhonchi. No crackles. ABDOMEN: Soft, nontender. LEGS: No edema. NERVOUS SYSTEM: No focal deficits. LABS: WBC 15.2, hemoglobin 10.5, sodium 146. ASSESSMENT: 1. Recurrent abdominal pain, possible small-bowel obstruction status post exploratory laparotomy as well as extensive adhesiolysis. 2. Severe hypokalemia, improved. 3. Fever possible urinary tract infection present on admission. 4. Tachycardia sinus. 5. History of small-bowel obstruction. 6. Increased WBC. 7. History of coronary artery disease. 8. Hypertension. 9. Hyperlipidemia. 10.History of spina bifida. 11.History of myelodysplasia history. 12.History of paraplegia. 13.History of lithotripsy. 14.History of colostomy reversal as a child. 15.History of ventriculoperitoneal shunt. 16.History of nicotine dependence. 17.E coli urinary tract infection. RECOMMENDATIONS AND DISCUSSION: I recommend to continue current management, monitoring and symptomatic treatment. Continue with IV fluids. Repeat labs. Continue the antibiotics. The cultures are showing E coli as mentioned earlier, otherwise will closely monitor. Follow with surgery. Further recommendations to follow. MMODL / IJN: [id number] /
--- NOTE | 2018-11-19 21:47 | PN ---
PROGRESS NOTE DATE OF SERVICE: 11/19/2018. REASON FOR FOLLOWUP: Urinary tract infection. INTERVAL HISTORY: The patient is currently afebrile. The patient did have abdominal distention last night for which the patient did have NG with removal of almost 2 L of gastric secretions. The patient complains of some abdominal discomfort, some nausea. Denies any chest pain. No shortness of breath or cough. PHYSICAL EXAMINATION: Blood pressure is 99/54, pulse of 74, temperature 98.5. He is 97% on room air. General description is a middle-aged male lying in bed in no distress. Respiratory system: Unlabored breathing, clear to auscultation anteriorly. Heart S1, S2. Regular rate and rhythm. ABDOMEN: Soft, no guarding or rigidity. EXTREMITIES: No edema of the feet. LABS: Hemoglobin is 10.5, white count 15.8. BUN of 13, creatinine 0.54. DIAGNOSTIC IMPRESSION AND PLAN: Patient admitted to the hospital with fever, with concern for urinary tract infection, or possible abdominal source. The patient did have extensive abdominal surgery with multiple lysis of adhesions. The patient is currently covered with cefepime and Flagyl. Infectious Disease will monitor clinical course closely. Continue supportive care. MMODL / IJN: [id number] / KASSY
[2018-11-20] MEDS: SODIUM CHLORIDE 0.45% 1,000 ML with POTASSIUM CHLORIDE 40 MEQ IV SCH ×4 (06:12→19:45)
[2018-11-20] MEDS: OXYBUTYNIN XL 5 MG TAB.ER.24 PO SCH ×2 (07:04→19:42)
[2018-11-20] MEDS: ATENOLOL 50 MG TAB PO SCH (07:05)
[2018-11-20] MEDS: PANTOPRAZOLE 40 MG/10 ML VIAL IV SCH (07:55)
[2018-11-20] MEDS: HEPARIN SODIUM,PORCINE 5,000 UNIT/ML 1 ML VIAL SQ SCH ×3 (07:57→23:20)
[2018-11-20] MEDS: metroNIDAZOLE-NS PMX 500 MG in SALINE 1 100ML.BAG IVPB SCH ×3 (07:59→23:19)
[2018-11-20] MEDS: CEFEPIME 2 GM in SODIUM CHLORIDE 0.9% 100 ML IVPB SCH ×2 (09:05→19:51)
[2018-11-20] MEDS: SODIUM FERRIC GLUCONAT-SUCROSE 125 MG in SODIUM CHLORIDE 0.9% 100 ML IVPB SCH (09:38)
[2018-11-20] MEDS: 1: MVI, ADULT NO.4 WITH VIT K 10 ML, TRACE (CONC-1ML/DOSE) 1 ML in AMINO ACID 4.25%-D10W IV SCH ×6 (10:03→19:47)
--- NOTE | 2018-11-20 11:04 | CDI ---
Documentation Clarification Form Date: 11/20/2018 10:55:15 AM From: Analilia AndrewMorrisonWILL, CCDS Admit Date: 11/13/2018 7:50:00 PM Patient Name: Reggie Villagran Visit Number: [id number] Discharge Date: ATTENTION: The Clinical Documentation Specialists (CDI) and [facility] Coding Staff appreciate your assistance in clarifying documentation. Please respond to the clarification below the line at the bottom and electronically sign. The CDI & [facility] Coding staff will review the response and follow-up if needed. Please note: Queries are made part of the Legal Health Record. If you have any questions, please contact the author of this message via ITS. Dr. Caroline White: Per the 11/15 OR note postoperative diagnosis: "Recurrent pressure decubiti sacral ulcers." History/Risk Factors: Recurrent SBOs, multiple abdominal surgeries, Spina bifida, Ventricular peritoneal shunt, Paraplegia, Hypertensive heart disease, Chronic constipation, Neurogenic bladder, GERD and Hyperlipidemia. Clinical Indicators: Presented to the ER with abdominal pain, nausea & vomiting, diagnosed with a small bowel obstruction. Treatment: IV Morphine, IV Zofran, IV fluid rate 100, heparin sq, IV Zosyn, IV fluid bolus. extensive lysis of adhesions. In your professional opinion, can you please clarify the diagnosis, location, laterality and whether present on admission (POA): Stage 1 Pressure/Decubitus Ulcer, (intact skin, non-blanching redness of local area) Stage 2 Pressure/Decubitus Ulcer (Partial thickness, loss of dermis, pink wound bed) Stage 3 Pressure/Decubitus Ulcer (Full thickness tissue loss) Stage 4 Pressure/Decubitus Ulcer, (Full thickness tissue loss with exposed bone, tendon, or muscle. May have slough or eschar present) Unstageable Other condition, please specify Unable to determine Please indicate etiology of pressure ulcer (if known). (Last Revision: February 2017) Stage 1 Pressure/Decubitus Ulcer, (intact skin, non-blanching redness of local area) MTDD
--- NOTE | 2018-11-20 12:01 | P.PN ---
<Keli Price - Last Filed: 11/20/18 16:28> Subjective Progress Note Date: 11/20/18 CHIEF COMPLAINT: small bowel obstruction HISTORY OF PRESENT ILLNESS: Patient is status post exploratory laparotomy with extensive lysis of adhesions. Patient examined at the bedside. NG remains intact with bilious output. Patient tolerating ice chips. He is requesting to have his diet advanced. He denies passing flatus. Denies BM today. Last documented BM was overnight at midnight. Temperature this morning 99.1. PHYSICAL EXAM: VITAL SIGNS: Reviewed. GENERAL: Well-developed in no acute distress. HEENT: NG to LIS with bilious drainage. No sclera icterus. Extraocular movements grossly intact. Moist buccal mucosa. Head is atraumatic, normocephalic. Hears conversational speech. No nasal drainage. NECK: Supple without lymphadenopathy. CHEST: Non-labored respirations and equal bilateral excursions. CARDIOVASCULAR: Slightly Tachycardic. Palpable 2+ radial pulses. ABDOMEN: Soft. Nondistended. Appropriate surgical tenderness. Dressing to midline incision intact with serosanguineous drainage. Patient with old surgical scars to left lower quadrant and right lower quadrant. MUSCULOSKELETAL: Paraplegic. No clubbing, cyanosis or edema. NEUROLOGIC: No focal or lateralizing signs. Cranial nerves II through XII grossly intact. PSYCH: Appropriate affect. Alert and oriented to person, place and time. SKIN: Well perfused. Good skin turgor. ASSESSMENT: 1. Recurrent small bowel obstruction 2. Sepsis, present on admission, patient presented with leukocytosis, tachycardia, and fever 3. Recent hospitalization for small bowel obstruction 4. History of colostomy with reversal as a child 5. Hypokalemia 6. Hypomagnesemia 7. History of pressure ulcers 8. Abrasion to buttocks secondary to patient transfer, no pressure ulcer present PLAN: 1. Continue antibiotics. Monitor WBC. Infectious disease is on consult 2. NPO 3. Continue NG tube 4. Incentive spirometry 5. Daily dulcolax suppositories. Continue reglan 6. Await results of morning blood work 7. New optifoam dressing ordered. Change dressing today. Nurse practitioner note has been reviewed by physician. Signing provider agrees with the documented findings, assessment, and plan of care. Objective - Vital Signs Vital signs: Vital Signs Temp 99.1 F 11/20/18 07:00 Pulse 102 H 11/20/18 07:00 Resp 17 11/20/18 07:00 BP 119/78 11/20/18 07:00 Pulse Ox 96 11/20/18 07:00 Intake & Output 11/19/18 11/20/18 11/20/18 18:59 06:59 18:59 Intake Total 1665 Output Total 1325 1245 Balance 340 -1245 Weight 65.771 kg Intake: Intake, IV Titration 525 Amount Cefepime 2 gm In Sodium 200 Chloride 0.9% 100 ml @ 200 mls/hr IVPB Q12HR [facility] Rx#:[id number] Potassium Chloride 10 meq 100 In Water For Injection 1 100ml.bag @ 100 mls/hr IVPB Q1H [facility] Rx#: [id number] Sodium Ferric Gluconat- 125 Sucrose 125 mg In Sodium Chloride 0.9% 100 ml @ 100 mls/hr IVPB DAILY [facility] Rx#:[id number] metroNIDAZOLE-NS PMX 500 100 mg In Saline 1 100ml.bag @ 100 mls/hr IVPB Q8HR [facility] Rx#:[id number] Oral 1140 Output: Gastric Drainage 425 770 Urine 900 475 Other: Voiding Method Indwelling Catheter Indwelling Catheter Indwelling Catheter # Voids 1 # Bowel Movements 1 2 - Labs CBC & Chem 7: 11/20/18 12:01 11/20/18 12:01 Labs: Microbiology - Last 24 Hours (Table) 11/13/18 22:21 Blood Culture - Final Blood No Growth after 144 hours Assessment and Plan (1) Sepsis Current Visit: Yes Status: Acute Code(s): A41.9 - SEPSIS, UNSPECIFIED ORGANISM SNOMED Code(s): 61697604 (2) Small bowel obstruction Current Visit: Yes Status: Acute Code(s): K56.609 - UNSP INTESTNL OBST, UNSP TO PARTIAL VERSUS COMPLETE OBST SNOMED Code(s): 746047508 (3) Abdominal pain Current Visit: No Status: Acute Code(s): R10.9 - UNSPECIFIED ABDOMINAL PAIN SNOMED Code(s): 96962119 (4) Tachycardia Current Visit: No Status: Acute Code(s): R00.0 - TACHYCARDIA, UNSPECIFIED SNOMED Code(s): 4416135 <Caroline White N - Last Filed: 11/20/18 21:33> Subjective As above. Patient DOES NOT HAVE PRESSURE ULCER only abrasion from transfers upon clarification with his nurse. I placed a PREVENA 20-cm wound vac placed along incision from moderate serous drainage. Abdomen is soft. Clinical course complicated by his spina bifida and paraplegia. Recommend objective films with AXR. Daily rectal stimulation for neurogenic bladder and colon. Continue Regaln Objective - Vital Signs Vital signs: Vital Signs Temp 98.8 F 11/20/18 21:15 Pulse 91 11/20/18 21:15 Resp 18 11/20/18 21:15 BP 140/85 11/20/18 21:15 Pulse Ox 97 11/20/18 21:15 Intake & Output 11/20/18 11/20/18 11/21/18 06:59 18:59 06:59 Intake Total 1150 Output Total 1245 1130 Balance -1245 20 Intake: Intake, IV Titration 1150 Amount Cefepime 2 gm In Sodium 100 Chloride 0.9% 100 ml @ 200 mls/hr IVPB Q12HR [facility] Rx#:[id number] Mvi, Adult No.4 with Vit 400 K 10 ml Trace (Conc-1Ml/ Dose) 1 ml In Amino Acid 4.25%-D10w+Lytes*E* 1,000 ml @ 100 mls/hr IV .BY DURATION [facility] Rx#: [id number] Sodium Chloride 0.45% 1, 450 000 ml @ 75 mls/hr IV . [id number] [facility] with Potassium Chloride 40 meq Rx#:[id number] Sodium Ferric Gluconat- 100 Sucrose 125 mg In Sodium Chloride 0.9% 100 ml @ 100 mls/hr IVPB DAILY [facility] Rx#:[id number] metroNIDAZOLE-NS PMX 500 100 mg In Saline 1 100ml.bag @ 100 mls/hr IVPB Q8HR [facility] Rx#:[id number] Output: Gastric Drainage 770 1130 Urine 475 Other: Voiding Method Indwelling Catheter Indwelling Catheter # Voids 1 # Bowel Movements 2 - Labs CBC & Chem 7: 11/20/18 12:01 11/20/18 12:01 Labs: Abnormal Lab Results - Last 24 Hours (Table) 11/20/18 11/20/18 Range/Units 12:01 12:01 RBC 3.65 L (4.30-5.90) m/uL Hgb 9.7 L (13.0-17.5) gm/dL Hct 31.0 L (39.0-53.0) % RDW 16.7 H (11.5-15.5) % Neutrophils # 8.1 H (1.3-7.7) k/uL Potassium 3.0 L (3.5-5.1) mmol/L Chloride 117 H (98-107) mmol/L Carbon Dioxide 19 L (22-30) mmol/L Creatinine 0.46 L (0.66-1.25) mg/dL Glucose 150 H (74-99) mg/dL Calcium 8.0 L (8.4-10.2) mg/dL Microbiology - Last 24 Hours (Table) 11/13/18 22:21 Blood Culture - Final Blood No Growth after 144 hours Assessment and Plan (1) UTI (urinary tract infection) Current Visit: Yes Status: Acute Code(s): N39.0 - URINARY TRACT INFECTION, SITE NOT SPECIFIED SNOMED Code(s): 42552641 (2) Sepsis Current Visit: Yes Status: Acute Code(s): A41.9 - SEPSIS, UNSPECIFIED ORGANISM SNOMED Code(s): 05090396 (3) Small bowel obstruction Current Visit: Yes Status: Acute Code(s): K56.609 - UNSP INTESTNL OBST, UNSP TO PARTIAL VERSUS COMPLETE OBST SNOMED Code(s): 300387560 (4) Paraplegia Current Visit: Yes Status: Acute Code(s): G82.20 - PARAPLEGIA, UNSPECIFIED SNOMED Code(s): 40666121 (5) Spina bifida Current Visit: Yes Status: Acute Code(s): Q05.9 - SPINA BIFIDA, UNSPECIFIED SNOMED Code(s): 44676025
[2018-11-20 13:03] LABS: Ionized Calcium 5.3 mg/dL (4.5-5.3)
[2018-11-20 13:11] LABS: Anisocytosis Slight; Basophils % (A) 0 %; Eosinophils # (A) 0.3 k/uL (0-0.7); Eosinophils % (A) 3 %; HGB 9.7 gm/dL (13.0-17.5); Hypochromasia Slight; Lymphocytes % (A) 10 %; MCH 26.6 pg (25.0-35.0); MCHC 31.3 g/dL (31.0-37.0); Mean Platelet Volume 7.5; Monocytes # (A) 0.5 k/uL (0-1.0); Monocytes % (A) 5 %; Neutrophils # (A) 8.1 k/uL (1.3-7.7); Neutrophils % (A) 81 %; Platelet Count 289 k/uL (150-450); RBC 3.65 m/uL (4.30-5.90); RDW 16.7 % (11.5-15.5); WBC 10.1 k/uL (3.8-10.6)
[2018-11-20 13:30] LABS: African American GFR (CKD) >90 (>60 ml/min/1.73 sqM); Anion Gap 8 mmol/L; Blood Urea Nitrogen 10 mg/dL (9-20); Carbon Dioxide 19 mmol/L (22-30); Chloride 117 mmol/L (98-107); Glucose 150 mg/dL (74-99); Magnesium 1.9 mg/dL (1.6-2.3); Phosphorus 3.3 mg/dL (2.5-4.5); Sodium 144 mmol/L (137-145); Triglycerides 62 mg/dL (<150)
[2018-11-20] MEDS: FAT EMULSION 20% 250 ML IV SCH (13:50)
[2018-11-20 14:05] LABS: Poikilocytosis (M) Present
[2018-11-20] MEDS: POTASSIUM CHLORIDE 10 MEQ in WATER FOR INJECTION 1 100ML.BAG IVPB SCH ×5 (14:14→23:18)
--- NOTE | 2018-11-20 15:03 | PN ---
PROGRESS NOTE DATE OF SERVICE: 11/20/2018 This is a 52-year-old gentleman who comes in with recurrent abdominal pain with possible partial small bowel obstruction had exploratory laparotomy. The patient had abdominal distention and pain. NG tube was insignificant of bilious drainage obtained. No chest pain. No palpitations. No fever. PHYSICAL EXAM: Alert and oriented x3. Pulse 102, blood pressure 119/72, respiration 17, temperature 99.1, pulse ox 98% on room air. HEENT: Conjunctivae normal. NECK: No jugular venous distension. CARDIOVASCULAR: S1, S2, muiffled. RESPIRATORY: Breath sounds diminished at the bases, scattered rhonchi, no crackles. ABDOMEN: Soft, status post surgery. LEGS: No edema, no swelling. NERVOUS SYSTEM: No focal deficits. LABS: WBC 15.8, hemoglobin is 10.5, sodium 146. ASSESSMENT: 1. Abdominal pain with possible partial small-bowel obstruction, status post exploratory laparotomy as well as extensive adhesion of lysis. 2. Severe hypokalemia. 3. Possible urinary tract infection present on admission. 4. Tachycardia, sinus. 5. History of small-bowel obstruction. 6. Increased WBC. 7. History of coronary artery disease. 8. History of hypertension. 9. History of spina bifida. 10.History of myelodysplasia history. 11.History of paraplegia. 12.History of lithotripsy. 13.History of colostomy reversal is a child. 14.History of ventriculoperitoneal shunt. 15.History of nicotine dependence. 16.History of urinary tract infection. RECOMMENDATION: Recommend to continue current medications and monitor clinical course closely. I recommend continue with NG tube, continue with the rest of medications. Repeat labs. DVT prophylaxis. Further recommendations to follow. MMODL / IJN: [id number] /
--- NOTE | 2018-11-20 19:45 | PN ---
PROGRESS NOTE DATE OF SERVICE: 11/20/2018 REASON FOR FOLLOWUP: Urinary tract infection. INTERVAL HISTORY: The patient is currently afebrile. The patient has been breathing comfortably. Patient has been slightly upset. The patient seemed to have some serous drainage from his abdominal incision. No worsening pain, though. No chest pain, shortness of breath or cough. Still has NG in. PHYSICAL EXAMINATION: Blood pressure 119/79 with a pulse of 87, temperature 98.5. He is 98% on room air. General description is a middle-aged male lying in bed in no distress. Respiratory system: Unlabored breathing. Clear to auscultation anteriorly. Heart S1, S2. Regular rate and rhythm. ABDOMEN: Soft, some drainage from the incision. LABS: Hemoglobin 9.1, white count normalized to 10.1 with a BUN of 10, creatinine 0.46. DIAGNOSTIC IMPRESSION AND PLAN: Patient with E coli urinary tract infection, multidrug resistant, currently covered with Cefepime to continue along with Flagyl while monitoring his clinical course closely. Continue supportive care. MMODL / IJN: [id number] /
--- NOTE | 2018-11-20 21:43 | XR ---
EXAMINATION TYPE: XR abdomen 1V DATE OF EXAM: 11/20/2018 Comparison: 11/14/2018 Clinical History: 52 year-old male abdominal distention Findings: Retained barium contrast material seen scattered within the colon. Midline surgical mathieu are prese nt. Gassy bowel loops are present throughout. Some residual dilated small bowel suggested in the left side of the abdomen measuring up to 5.2 cm. An NG tube is present. Supine imaging limited for assessment of free air. Impression: Gassy bowel loops. Some residual retained barium contrast scattered within the colon. There is some r esidual dilated small bowel loops in the left side of the abdomen measuring up to 5.2 cm.
[2018-11-21] MEDS: POTASSIUM CHLORIDE 10 MEQ in WATER FOR INJECTION 1 100ML.BAG IVPB SCH ×5 (00:58→07:18)
[2018-11-21 05:13] LABS: African American GFR (CKD) >90 (>60 ml/min/1.73 sqM); Anion Gap 7 mmol/L; Blood Urea Nitrogen 8 mg/dL (9-20); Carbon Dioxide 19 mmol/L (22-30); Chloride 115 mmol/L (98-107); Glucose 161 mg/dL (74-99); Potassium 3.6 mmol/L (3.5-5.1); Sodium 141 mmol/L (137-145)
[2018-11-21] MEDS: METOCLOPRAMIDE 5 MG/ML 2 ML VIAL IVP SCH ×4 (06:19→23:38)
[2018-11-21] MEDS: BISACODYL 10 MG SUPP RECTAL SCH (07:18)
[2018-11-21] MEDS: 1: MVI, ADULT NO.4 WITH VIT K 10 ML, TRACE (CONC-1ML/DOSE) 1 ML in AMINO ACID 4.25%-D10W IV SCH ×6 (07:44→17:23)
[2018-11-21] MEDS: ATENOLOL 50 MG TAB PO SCH (07:51)
[2018-11-21] MEDS: OXYBUTYNIN XL 5 MG TAB.ER.24 PO SCH ×2 (07:51→19:47)
[2018-11-21] MEDS: metroNIDAZOLE-NS PMX 500 MG in SALINE 1 100ML.BAG IVPB SCH ×3 (07:51→23:38)
--- NOTE | 2018-11-21 08:28 | XR ---
EXAMINATION TYPE: XR abdomen 1V DATE OF EXAM: 11/21/2018 Comparison: 11/20/2018 Clinical History: 52-year-old now abdominal distention, s/p ileus, bowel resection Findings: NG tube is present. Supine imaging limited for assessment of free air. Residual dilated small bowel l oops in the left and midabdomen measuring up to 5.6 cm. Surgical clips along the anterior midline. Re sidual barium contrast within the rectum and right side of the colon. Impression: Similar dilated small bowel (measuring up to 5.6 cm), probable postoperative ileus given history of b owel resection.
[2018-11-21] MEDS: CEFEPIME 2 GM in SODIUM CHLORIDE 0.9% 100 ML IVPB SCH ×2 (09:00→19:48)
[2018-11-21] MEDS: PANTOPRAZOLE 40 MG/10 ML VIAL IV SCH (09:03)
[2018-11-21] MEDS: SODIUM CHLORIDE 0.45% 1,000 ML with POTASSIUM CHLORIDE 40 MEQ IV SCH ×4 (09:05→16:54)
[2018-11-21] MEDS ORDERED: Potassium Replacement Protocol 1 EACH MISC MISCELLANE PRN (09:49)
[2018-11-21] MEDS ORDERED: POTASSIUM CHLORIDE 10 MEQ in WATER FOR INJECTION 1 100ML.BAG IVPB SCH (10:00)
[2018-11-21] MEDS: SODIUM FERRIC GLUCONAT-SUCROSE 125 MG in SODIUM CHLORIDE 0.9% 100 ML IVPB SCH (10:10)
--- NOTE | 2018-11-21 12:30 | P.PN ---
<Keli Price Km - Last Filed: 11/21/18 12:26> Subjective Progress Note Date: 11/21/18 CHIEF COMPLAINT: small bowel obstruction HISTORY OF PRESENT ILLNESS: Patient is status post exploratory laparotomy with extensive lysis of adhesions. Patient examined at the bedside. NG remains intact with bilious output. Denies bowel movement this morning. abdominal x-ray this morning reveals dilated small bowel measuring up to 5.6 cm, increased from yesterday which was measuring 5.2 cm.vital signs have been stable. Patient afebrile. Potassium this morning 3.6. Nursing reports patient received 2 bags of potassium IV since blood was drawn this morning. PHYSICAL EXAM: VITAL SIGNS: Reviewed. GENERAL: Well-developed in no acute distress. HEENT: NG to LIS with bilious drainage. No sclera icterus. Extraocular movements grossly intact. Moist buccal mucosa. Head is atraumatic, normocephalic. Hears conversational speech. No nasal drainage. NECK: Supple without lymphadenopathy. CHEST: Non-labored respirations and equal bilateral excursions. CARDIOVASCULAR: Palpable 2+ radial pulses. ABDOMEN: Soft. Nondistended. Appropriate surgical tenderness. PREVENA to midline incision. Patient with old surgical scars to left lower quadrant and right lower quadrant. MUSCULOSKELETAL: Paraplegic. No clubbing, cyanosis or edema. NEUROLOGIC: No focal or lateralizing signs. Cranial nerves II through XII grossly intact. PSYCH: Appropriate affect. Alert and oriented to person, place and time. SKIN: Well perfused. Good skin turgor. ASSESSMENT: 1. Recurrent small bowel obstruction 2. Sepsis, present on admission, patient presented with leukocytosis, tachycardia, and fever 3. Recent hospitalization for small bowel obstruction 4. History of colostomy with reversal as a child 5. Hypokalemia 6. Hypomagnesemia 7. History of pressure ulcers 8. Abrasion to buttocks secondary to patient transfer, no pressure ulcer present PLAN: 1. Continue antibiotics. Monitor WBC. Infectious disease is on consult 2. NPO 3. Continue NG tube 4. Incentive spirometry 5. Daily dulcolax suppositories. Continue reglan 6. Continue PREVENA 7. Daily abdominal xrays to assess small bowel distention. When improved, will DC NG tube 8. Patient to receive PICC line today. Continue TPN 9. Recheck potassium at 1200. Nurse practitioner note has been reviewed by physician. Signing provider agrees with the documented findings, assessment, and plan of care. Objective - Vital Signs Vital signs: Vital Signs Temp 98.6 F 11/21/18 07:00 Pulse 94 11/21/18 07:00 Resp 16 11/21/18 07:00 BP 121/77 11/21/18 07:00 Pulse Ox 97 11/21/18 07:00 Intake & Output 11/20/18 11/21/18 11/21/18 18:59 06:59 18:59 Intake Total 1150 1000 1011 Output Total 1130 250 Balance 20 750 1011 Intake: Intake, IV Titration 1150 1000 1011 Amount Amino Acid 4.25%-D10w+ 1000 Lytes*E* 1,000 ml @ 100 mls/hr IV .BY DURATION [facility] Rx#:[id number] Cefepime 2 gm In Sodium 100 Chloride 0.9% 100 ml @ 200 mls/hr IVPB Q12HR [facility] Rx#:[id number] Mvi, Adult No.4 with Vit 400 1011 K 10 ml Trace (Conc-1Ml/ Dose) 1 ml In Amino Acid 4.25%-D10w+Lytes*E* 1,000 ml @ 100 mls/hr IV .BY DURATION [facility] Rx#: [id number] Sodium Chloride 0.45% 1, 450 000 ml @ 75 mls/hr IV . [id number] [facility] with Potassium Chloride 40 meq Rx#:[id number] Sodium Ferric Gluconat- 100 Sucrose 125 mg In Sodium Chloride 0.9% 100 ml @ 100 mls/hr IVPB DAILY [facility] Rx#:[id number] metroNIDAZOLE-NS PMX 500 100 mg In Saline 1 100ml.bag @ 100 mls/hr IVPB Q8HR [facility] Rx#:[id number] Oral 0 Output: Gastric Drainage 1130 Urine 250 Other: Voiding Method Indwelling Catheter Indwelling Catheter Indwelling Catheter - Labs CBC & Chem 7: 11/20/18 12:01 11/21/18 04:37 Labs: Abnormal Lab Results - Last 24 Hours (Table) 11/20/18 11/20/18 11/20/18 Range/Units 12:01 12:01 20:57 RBC 3.65 L (4.30-5.90) m/uL Hgb 9.7 L (13.0-17.5) gm/dL Hct 31.0 L (39.0-53.0) % RDW 16.7 H (11.5-15.5) % Neutrophils # 8.1 H (1.3-7.7) k/uL Potassium 3.0 L 3.4 L (3.5-5.1) mmol/L Chloride 117 H (98-107) mmol/L Carbon Dioxide 19 L (22-30) mmol/L BUN (9-20) mg/dL Creatinine 0.46 L (0.66-1.25) mg/dL Glucose 150 H (74-99) mg/dL Calcium 8.0 L (8.4-10.2) mg/dL 11/21/18 Range/Units 04:37 RBC (4.30-5.90) m/uL Hgb (13.0-17.5) gm/dL Hct (39.0-53.0) % RDW (11.5-15.5) % Neutrophils # (1.3-7.7) k/uL Potassium (3.5-5.1) mmol/L Chloride 115 H (98-107) mmol/L Carbon Dioxide 19 L (22-30) mmol/L BUN 8 L (9-20) mg/dL Creatinine 0.37 L (0.66-1.25) mg/dL Glucose 161 H (74-99) mg/dL Calcium 8.0 L (8.4-10.2) mg/dL Assessment and Plan (1) Sepsis Current Visit: Yes Status: Acute Code(s): A41.9 - SEPSIS, UNSPECIFIED ORGANISM SNOMED Code(s): 59289620 (2) Small bowel obstruction Current Visit: Yes Status: Acute Code(s): K56.609 - UNSP INTESTNL OBST, UNSP TO PARTIAL VERSUS COMPLETE OBST SNOMED Code(s): 480429141 (3) Abdominal pain Current Visit: No Status: Acute Code(s): R10.9 - UNSPECIFIED ABDOMINAL PAIN SNOMED Code(s): 04405736 (4) Tachycardia Current Visit: No Status: Acute Code(s): R00.0 - TACHYCARDIA, UNSPECIFIED SNOMED Code(s): 2494624 <Caroline White - Last Filed: 11/21/18 22:21> Subjective Patient had spina bifida with neurogenic bladder and colon. As a result, GI motility is compromised including with increased risk for paralytic ileus. Recommend PICC line with TPN for delayed bowel function with neurogenic component. Reglan scheduled advised include daily suppositories for rectal stimulation with spina bifida. Will trial of clamp NGT with sips of liquid. Will re-connect to suction for any signs of nausea/vomiting/abdominal distention/abdominal pain. PREVENA wound vac connected to suction to address drainage along midline. Recommend correction of hypokalemia to severity of small bowel ileus. Continue TPN. Sepsis resolved. Objective - Vital Signs Vital signs: Vital Signs Temp 98.6 F 11/21/18 17:45 Pulse 81 11/21/18 19:26 Resp 18 11/21/18 19:26 BP 118/76 11/21/18 17:45 Pulse Ox 99 11/21/18 17:45 Intake & Output 11/21/18 11/21/18 11/22/18 06:59 18:59 06:59 Intake Total 1000 1411 240 Output Total 250 2703 Balance 750 -1292 240 Intake: Intake, IV Titration 1000 1411 Amount Amino Acid 4.25%-D10w+ 1000 Lytes*E* 1,000 ml @ 100 mls/hr IV .BY DURATION [facility] Rx#:[id number] Mvi, Adult No.4 with Vit 1011 K 10 ml Trace (Conc-1Ml/ Dose) 1 ml In Amino Acid 4.25%-D10w+Lytes*E* 1,000 ml @ 100 mls/hr IV .BY DURATION [facility] Rx#: [id number] Potassium Chloride 10 meq 200 In Water For Injection 1 100ml.bag @ 100 mls/hr IVPB Q1HR [facility] Rx#: [id number] Sodium Ferric Gluconat- 100 Sucrose 125 mg In Sodium Chloride 0.9% 100 ml @ 100 mls/hr IVPB DAILY [facility] Rx#:[id number] metroNIDAZOLE-NS PMX 500 100 mg In Saline 1 100ml.bag @ 100 mls/hr IVPB Q8HR [facility] Rx#:[id number] Oral 0 240 Output: Gastric Drainage 700 Urine 250 2000 Stool 3 Other: Voiding Method Indwelling Catheter Indwelling Catheter Indwelling Catheter - Labs CBC & Chem 7: 11/20/18 12:11/21/18 11:45 Labs: Abnormal Lab Results - Last 24 Hours (Table) 11/20/18 11/21/18 Range/Units 20:57 04:37 Potassium 3.4 L (3.5-5.1) mmol/L Chloride 115 H (98-107) mmol/L Carbon Dioxide 19 L (22-30) mmol/L BUN 8 L (9-20) mg/dL Creatinine 0.37 L (0.66-1.25) mg/dL Glucose 161 H (74-99) mg/dL Calcium 8.0 L (8.4-10.2) mg/dL Assessment and Plan (1) UTI (urinary tract infection) Current Visit: Yes Status: Acute Code(s): N39.0 - URINARY TRACT INFECTION, SITE NOT SPECIFIED SNOMED Code(s): 90990391 (2) Sepsis Current Visit: Yes Status: Acute Code(s): A41.9 - SEPSIS, UNSPECIFIED ORGANISM SNOMED Code(s): 43998861 (3) Small bowel obstruction Current Visit: Yes Status: Acute Code(s): K56.609 - UNSP INTESTNL OBST, UNSP TO PARTIAL VERSUS COMPLETE OBST SNOMED Code(s): 698291331 (4) Paraplegia Current Visit: Yes Status: Acute Code(s): G82.20 - PARAPLEGIA, UNSPECIFIED SNOMED Code(s): 64474242 (5) Spina bifida Current Visit: Yes Status: Acute Code(s): Q05.9 - SPINA BIFIDA, UNSPECIFIED SNOMED Code(s): 77822496
[2018-11-21] MEDS: FAT EMULSION 20% 250 ML IV SCH (13:27)
[2018-11-21] MEDS: LIDOCAINE 1% INJ 10MG/ML (20 ML MDV) SQ ONE ×2 (14:21→14:27)
--- NOTE | 2018-11-21 15:49 | IR ---
PICC LINE PLACEMENT: HISTORY: TPN PROCEDURE: Ultrasound and fluoroscopic guidance of PICC line placement. COMPLICATIONS: None ANESTHESIA: 1. 1% Lidocaine locally. FINDINGS/TECHNIQUE: The procedure was explained to the patient. The risks, complications, benefits and alternatives were discussed and any questions were answered. Informed consent was obtained. The patient was placed supine on the fluoroscopic table and prepped and draped in the usual sterile fash ion. Utilizing a 21 gauge needle and sonographic and fluoroscopic guidance, access in the left brac hial vein was achieved and there is placement of a 0.018 guidewire. The vein is patent. A 5-Fr toussaint th was placed over the guidewire. The guidewire and dilator were removed and a 5-F. Double lumen PIC C line was placed through the sheath with the tip at the level of the SVC. The sheath was removed, t he catheter was flushed and sutured into position. The patient was stable throughout the procedure a nd remained stable upon discharge from the Department of Radiology. The vein puncture was patent under ultrasound. A lozano scale image was obtained to document patency of the vein punctured. All elements of the maximal barrier technique were utilized. FLUOROSCOPY TIME: 0.4 minutes and one image submitted. IMPRESSION: Successful PICC double lumen line placement under ultrasound and fluoroscopic guidance.
--- NOTE | 2018-11-21 22:22 | P.PN ---
Progress Note - Text Progress Note Date: 11/21/18 Patient had spina bifida with neurogenic bladder and colon. As a result, GI motility is compromised including with increased risk for paralytic ileus. Recommend PICC line with TPN for delayed bowel function with neurogenic component. Reglan scheduled advised include daily suppositories for rectal stimulation with spina bifida. Will trial of clamp NGT with sips of liquid. Will re-connect to suction for any signs of nausea/vomiting/abdominal distention/abdominal pain. PREVENA wound vac connected to suction to address drainage along midline. Recommend correction of hypokalemia to severity of small bowel ileus. Continue TPN. Sepsis resolved.
--- NOTE | 2018-11-21 23:49 | PN ---
PROGRESS NOTE DATE OF SERVICE: 11/21/2018 REASON FOR FOLLOWUP: Urinary tract infection. INTERVAL HISTORY: The patient is currently afebrile. The patient has been breathing comfortably. He still has the NG. Abdominal pain has been about the same, with no worsening. No chest pain. No vomiting or any diarrhea. PHYSICAL EXAMINATION: Blood pressure is 118/76, pulse of 83, temperature 98.6. He is 99% on room air. General description is a middle-aged male lying in bed in no distress. RESPIRATORY SYSTEM: Unlabored breathing with decreased breath sounds at the base. No wheeze. HEART: S1, S2. Regular rate and rhythm. ABDOMEN: Soft. No tenderness. LABS: BUN of 8, creatinine 0.37. Repeat urine has been negative. DIAGNOSTIC IMPRESSION AND PLAN: Patient with [id number] Escherichia coli urinary tract infection, currently covered with cefepime and Flagyl. This patient did have an ileus, status post laparotomy and lysis of adhesions. Will continue to monitor the patient's clinical course closely. Continue with supportive care. MMODL / FANTASMAN: [id number] / MTDD
--- NOTE | 2018-11-22 00:32 | P.PN ---
Subjective Progress Note Date: 11/21/18 Principal diagnosis: Small bowel obstruction partial Patient is a 52-year-old male with a known history of recurrent bowel obstruction was admitted to the hospital due to partial small bowel obstruction. Patient underwent expiratory laparotomy. 11/21/2018 Patient is complaining of abdominal discomfort but improved. Did have a watery bowel movement last night. Currently not passing flatness. NG tube is being continued and is draining bilious fluid. Currently tolerating ice chips. General surgery is following. no complaints of fever or chills. Current antibiotics due to E. coli urinary tract infection. Active Medications Generic Name Dose Route Start Last Admin Trade Name Freq PRN Reason Stop Dose Admin Atenolol 50 mg 11/20/18 09:00 11/21/18 07:51 Tenormin PO 50 mg DAILY [facility] Administration Benzocaine 1 spray 11/14/18 08:35 11/14/18 17:32 Hurricaine [place] TOPICAL 1 spray QID PRN Administration Skin Irritation Bisacodyl 10 mg 11/21/18 09:00 11/21/18 07:18 Dulcolax RECTAL Not Given DAILY [facility] Cefepime HCl 2 gm/ Sodium 100 mls @ 200 mls/hr 11/17/18 22:15 11/21/18 19:48 Chloride IVPB 200 mls/hr Q12HR [facility] Administration Metronidazole 500 mg/ IV 100 mls @ 100 mls/hr 11/18/18 00:00 11/21/18 23:38 Solution IVPB 100 mls/hr Q8HR [facility] Administration Potassium Chloride 40 meq/ 1,020 mls @ 75 mls/hr 11/18/18 13:30 11/21/18 16:54 Sodium Chloride IV 75 mls/hr .[id number] [facility] Administration Ferric Sodium Gluconate 125 mg 110 mls @ 100 mls/hr 11/19/18 11:30 11/21/18 10:10 / Sodium Chloride IVPB 100 mls/hr DAILY [facility] Administration Parenteral Vitamin Supplement 1,011 mls @ 100 mls/hr 11/20/18 07:00 11/21/18 17:23 10 ml/ Chromium/Copper/ IV 100 mls/hr Manganese/Seleni/Zn 1 ml/ .BY DURATION [facility] Administration Amino Ac/Electrol/Dextrose/ Calcium Amino Ac/Electrol/Dextrose/Calcium 1,000 mls @ 100 mls/hr 11/20/18 07:00 11/21/18 07:44 Clinimix E 4.25%-D10% Solution IV 100 mls/hr .BY DURATION [facility] Administration Fat Emulsion Intravenous 250 mls @ 20.833 mls/hr 11/20/18 13:00 11/21/18 13:27 Lipids 20% IV 20.833 mls/hr DAILY@1300 [facility] Administration Metoclopramide HCl 10 mg 11/21/18 06:00 11/21/18 23:38 Reglan IVP 10 mg Q6H [facility] Administration Miscellaneous Information 1 each 11/15/18 23:30 Magnesium Per Protocol MISCELLANE DAILY PRN Per Protocol Protocol Miscellaneous Information 1 each 11/15/18 23:30 Potassium Per Protocol MISCELLANE DAILY PRN Per Protocol Protocol Miscellaneous Information 1 each 11/21/18 09:49 Potassium Per Protocol MISCELLANE DAILY PRN Per Protocol Protocol Morphine Sulfate 4 mg 11/13/18 19:50 11/19/18 21:41 Morphine Sulfate (Inj) IV 4 mg Q4HR PRN Administration Severe Pain Naloxone HCl 0.2 mg 11/13/18 19:50 Narcan IV Q2M PRN Opioid Reversal Ondansetron HCl 4 mg 11/13/18 19:50 11/15/18 07:37 Zofran IVP 4 mg Q8HR PRN Administration Nausea And Vomiting Oxybutynin Chloride 5 mg 11/14/18 07:00 11/21/18 19:47 Ditropan Xl PO 5 mg BID@0700,1900 [facility] Administration Pantoprazole Sodium 40 mg 11/14/18 09:00 11/21/18 09:03 Protonix IV 40 mg DAILY [facility] Administration Objective - Vital Signs Vital signs: Vital Signs Temp 98.6 F 11/21/18 07:00 Pulse 94 11/21/18 07:00 Resp 16 11/21/18 07:00 BP 121/77 11/21/18 07:00 Pulse Ox 97 11/21/18 07:00 Intake & Output 11/20/18 11/21/18 11/21/18 18:59 06:59 18:59 Intake Total 1150 1000 1011 Output Total 1130 250 Balance 20 750 1011 Intake: Intake, IV Titration 1150 1000 1011 Amount Amino Acid 4.25%-D10w+ 1000 Lytes*E* 1,000 ml @ 100 mls/hr IV .BY DURATION [facility] Rx#:[id number] Cefepime 2 gm In Sodium 100 Chloride 0.9% 100 ml @ 200 mls/hr IVPB Q12HR [facility] Rx#:[id number] Mvi, Adult No.4 with Vit 400 1011 K 10 ml Trace (Conc-1Ml/ Dose) 1 ml In Amino Acid 4.25%-D10w+Lytes*E* 1,000 ml @ 100 mls/hr IV .BY DURATION [facility] Rx#: [id number] Sodium Chloride 0.45% 1, 450 000 ml @ 75 mls/hr IV . [id number] [facility] with Potassium Chloride 40 meq Rx#:[id number] Sodium Ferric Gluconat- 100 Sucrose 125 mg In Sodium Chloride 0.9% 100 ml @ 100 mls/hr IVPB DAILY [facility] Rx#:[id number] metroNIDAZOLE-NS PMX 500 100 mg In Saline 1 100ml.bag @ 100 mls/hr IVPB Q8HR [facility] Rx#:[id number] Oral 0 Output: Gastric Drainage 1130 Urine 250 Other: Voiding Method Indwelling Catheter Indwelling Catheter Indwelling Catheter - Exam PHYSICAL EXAMINATION: Patient is lying in the bed comfortably, no acute distress, awake alert and oriented.. HEENT: Normocephalic. Neck is supple. Pupils reactive. Nostrils clear. Oral cavity is moist. Ears reveal no drainage. Neck reveals no JVD, carotid bruits, or thyromegaly. NG tube in place. CHEST EXAMINATION: Trachea is central. Symmetrical expansion. Lung gilman clear to auscultation and percussion. CARDIAC: Normal S1, S2 with no gallops. No murmurs ABDOMEN: Soft. Distended. Nontender. Bowel sounds present. No organomegaly. No abdominal bruits. Extremities: reveal no edema. No clubbing or cyanosis Neurologically awake, alert, oriented x3 with well-coordinated movements. No focal deficits noted Skin: No rash or skin lesions. Psychiatric: Coperative. Nonsuicidal Musculoskeletal: No joint swelling or deformity. Normal range of motion. - Labs CBC & Chem 7: 11/20/18 12:01 11/21/18 11:45 Labs: Abnormal Lab Results - Last 24 Hours (Table) 11/20/18 11/21/18 Range/Units 20:57 04:37 Potassium 3.4 L (3.5-5.1) mmol/L Chloride 115 H (98-107) mmol/L Carbon Dioxide 19 L (22-30) mmol/L BUN 8 L (9-20) mg/dL Creatinine 0.37 L (0.66-1.25) mg/dL Glucose 161 H (74-99) mg/dL Calcium 8.0 L (8.4-10.2) mg/dL Assessment and Plan Assessment: Abdominal pain secondary to acute partial small bowel obstruction status post ex piratory laparotomy and lysis of adhesions. Severe hypokalemia improved E. coli urinary tract infection Sinus tachycardia Previous history of multiple bowel obstruction Coronary artery disease neck and hypertension Spinabyfida. Paraplegia History of myelodysplasia Iron deficiency anemia History of lithotripsy History of ventriculoperitoneal shunt Nicotine addiction Plan: Patient will be continued on IV hydration. Continue with bowel rest. NG tube is in place. Ice chips as tolerated. Currently on antibiotics in the form of cefepime. ID and general surgery is following. Replace electrolytes. Follow closely and further recommendations based on the clinical course. Prognosis is guarded. Time with Patient: Greater than 30
[2018-11-22] MEDS: 1: MVI, ADULT NO.4 WITH VIT K 10 ML, TRACE (CONC-1ML/DOSE) 1 ML in AMINO ACID 4.25%-D10W IV SCH ×9 (03:03→23:24)
[2018-11-22] MEDS: METOCLOPRAMIDE 5 MG/ML 2 ML VIAL IVP SCH ×4 (04:56→23:23)
[2018-11-22] MEDS: SODIUM CHLORIDE 0.45% 1,000 ML with POTASSIUM CHLORIDE 40 MEQ IV SCH ×2 (08:21)
[2018-11-22] MEDS: metroNIDAZOLE-NS PMX 500 MG in SALINE 1 100ML.BAG IVPB SCH ×3 (08:23→23:23)
[2018-11-22] MEDS: MORPHINE SULFATE 4 MG/ML SYRINGE IV PRN ×2 (08:23→17:26)
[2018-11-22] MEDS: OXYBUTYNIN XL 5 MG TAB.ER.24 PO SCH ×2 (08:25→21:47)
[2018-11-22] MEDS: ATENOLOL 50 MG TAB PO SCH (08:25)
[2018-11-22] MEDS: BISACODYL 10 MG SUPP RECTAL SCH (08:35)
[2018-11-22 09:45] LABS: African American GFR (CKD) >90 (>60 ml/min/1.73 sqM); Anion Gap 5 mmol/L; Blood Urea Nitrogen 11 mg/dL (9-20); Calcium 8.1 mg/dL (8.4-10.2); Carbon Dioxide 23 mmol/L (22-30); Chloride 113 mmol/L (98-107); Glucose 130 mg/dL (74-99); Magnesium 2.2 mg/dL (1.6-2.3); Phosphorus 3.8 mg/dL (2.5-4.5); Potassium 4.2 mmol/L (3.5-5.1); Sodium 141 mmol/L (137-145)
[2018-11-22] MEDS: PANTOPRAZOLE 40 MG/10 ML VIAL IV SCH (09:58)
--- NOTE | 2018-11-22 10:02 | XR ---
EXAMINATION TYPE: XR abdomen 1V DATE OF EXAM: 11/22/2018 9:21 AM CLINICAL HISTORY: Ileus status post bowel resection progress study. TECHNIQUE: Single portable supine KUB image of the abdomen is obtained. COMPARISON: Abdominal x-ray from yesterday and older studies FINDINGS: Gas prominent and dilated small bowel loops throughout the central abdomen remain present. There. Stable or slightly improved in degree of gaseous distention. Contrast redemonstrated in nondis tended sigmoid colon and rectum. Overlying surgical skin mathieu again seen. Demineralization with sc oliosis redemonstrated. Nasogastric tube stable in position and epigastric region. 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 IMPRESSION: Overall nonspecific bowel gas pattern remains present. Slight improvement from one day earlier.
[2018-11-22] MEDS: SODIUM FERRIC GLUCONAT-SUCROSE 125 MG in SODIUM CHLORIDE 0.9% 100 ML IVPB SCH (10:06)
[2018-11-22] MEDS: CEFEPIME 2 GM in SODIUM CHLORIDE 0.9% 100 ML IVPB SCH ×2 (11:13→21:48)
--- NOTE | 2018-11-22 11:29 | P.PN ---
Subjective Progress Note Date: 11/22/18 CHIEF COMPLAINT: small bowel obstruction HISTORY OF PRESENT ILLNESS: Patient is status post exploratory laparotomy with extensive lysis of adhesions. Patient examined at the bedside. NG tube clamped yesterday evening. Patient started on ice chips and popsicles. Patient tolerating well. Denies nausea or vomiting. Denies abdominal pain. He reports he is having loose stools this morning. PHYSICAL EXAM: VITAL SIGNS: Reviewed. GENERAL: Well-developed in no acute distress. HEENT: NG present-currently clamped. No sclera icterus. Extraocular movements grossly intact. Moist buccal mucosa. Head is atraumatic, normocephalic. Hears conversational speech. No nasal drainage. NECK: Supple without lymphadenopathy. CHEST: Non-labored respirations and equal bilateral excursions. CARDIOVASCULAR: Palpable 2+ radial pulses. ABDOMEN: Soft. Mild distention. Appropriate mild surgical tenderness. PREVENA to midline incision. Patient with old surgical scars to left lower quadrant and right lower quadrant. MUSCULOSKELETAL: Paraplegic. No clubbing, cyanosis or edema. NEUROLOGIC: No focal or lateralizing signs. Cranial nerves II through XII grossly intact. PSYCH: Appropriate affect. Alert and oriented to person, place and time. SKIN: Well perfused. Good skin turgor. ASSESSMENT: 1. Recurrent small bowel obstruction 2. Sepsis, present on admission, patient presented with leukocytosis, tachycardia, and fever 3. Recent hospitalization for small bowel obstruction 4. History of colostomy with reversal as a child 5. Hypokalemia 6. Hypomagnesemia 7. History of pressure ulcers 8. Abrasion to buttocks secondary to patient transfer, no pressure ulcer present 9. History of spina bifida with neurogenic bladder and colon PLAN: 1. Continue antibiotics. Monitor WBC. Infectious disease is on consult 2. Begin clear liquid diet. If patient tolerates without nausea, vomiting, abdom inal pain, or increased abdominal distention may advance to full liquid diet for dinner. 3. Keep NG tube clamped. If patient exhibits any of the signs above, place NG back to suction. Otherwise, will likely DC NG tomorrow morning 4. Continue TPN until patient is tolerating at least 50% of full liquid diet 5. Incentive spirometry 6. Daily dulcolax suppositories. Continue reglan Nurse practitioner note has been reviewed by physician. Signing provider agrees with the documented findings, assessment, and plan of care. Objective - Vital Signs Vital signs: Vital Signs Temp 97.8 F 11/22/18 07:00 Pulse 96 11/22/18 07:00 Resp 16 11/22/18 07:00 BP 124/73 11/22/18 07:00 Pulse Ox 98 11/22/18 07:00 Intake & Output 11/21/18 11/22/18 11/22/18 18:59 06:59 18:59 Intake Total 2411 240 Output Total 2703 1700 Balance -292 -1460 Intake: Intake, IV Titration 2411 Amount Amino Acid 4.25%-D10w+ 1000 Lytes*E* 1,000 ml @ 100 mls/hr IV .BY DURATION [facility] Rx#:[id number] Mvi, Adult No.4 with Vit 1011 K 10 ml Trace (Conc-1Ml/ Dose) 1 ml In Amino Acid 4.25%-D10w+Lytes*E* 1,000 ml @ 100 mls/hr IV .BY DURATION [facility] Rx#: [id number] Potassium Chloride 10 meq 200 In Water For Injection 1 100ml.bag @ 100 mls/hr IVPB Q1HR [facility] Rx#: [id number] Sodium Ferric Gluconat- 100 Sucrose 125 mg In Sodium Chloride 0.9% 100 ml @ 100 mls/hr IVPB DAILY [facility] Rx#:[id number] metroNIDAZOLE-NS PMX 500 100 mg In Saline 1 100ml.bag @ 100 mls/hr IVPB Q8HR [facility] Rx#:[id number] Oral 240 Output: Gastric Drainage 700 Urine 2000 1700 Uretheral (Porter) 1700 Stool 3 Other: Voiding Method Indwelling Catheter Indwelling Catheter Indwelling Catheter # Bowel Movements 1 1 - Labs CBC & Chem 7: 11/20/18 12:01 11/22/18 09:11 Labs: Abnormal Lab Results - Last 24 Hours (Table) 11/22/18 Range/Units 09:11 Chloride 113 H (98-107) mmol/L Creatinine 0.39 L (0.66-1.25) mg/dL Glucose 130 H (74-99) mg/dL Calcium 8.1 L (8.4-10.2) mg/dL Assessment and Plan (1) Sepsis Current Visit: Yes Status: Acute Code(s): A41.9 - SEPSIS, UNSPECIFIED ORGANISM SNOMED Code(s): 51871578 (2) Small bowel obstruction Current Visit: Yes Status: Acute Code(s): K56.609 - UNSP INTESTNL OBST, UNSP TO PARTIAL VERSUS COMPLETE OBST SNOMED Code(s): 899366522 (3) Abdominal pain Current Visit: No Status: Acute Code(s): R10.9 - UNSPECIFIED ABDOMINAL PAIN SNOMED Code(s): 49348130 (4) Tachycardia Current Visit: No Status: Acute Code(s): R00.0 - TACHYCARDIA, UNSPECIFIED SNOMED Code(s): 2162845
[2018-11-22] MEDS: FAT EMULSION 20% 250 ML IV SCH (13:36)
--- NOTE | 2018-11-22 17:44 | PN ---
PROGRESS NOTE DATE OF SERVICE: 11/22/2018. REASON FOR FOLLOWUP: Urinary tract infection. INTERVAL HISTORY: The patient is currently afebrile. The patient has been breathing comfortably. Denies having any chest pain. Occasional cough. No worsening abdominal pain or any bowel movement. PHYSICAL EXAMINATION: Blood pressure is 110/65 with a pulse of 83, temperature 98.7. He is 98% on room air. General description is a middle-aged male lying in bed in no distress. Respiratory system: Unlabored breathing, decreased breath sounds in the bases. No wheeze. Heart S1, S2. Regular rate and rhythm. ABDOMEN: Soft. Incision is currently covered with vancomycin. No surrounding swelling or redness. Extremities: No edema of the feet. LABS: BUN of 11, creatinine 0.39. DIAGNOSTIC IMPRESSION AND PLAN: Patient with fever with concern for E coli urinary tract infection, multidrug resistant in this patient that does have a bowel obstruction status post extensive surgery with lysis of adhesions. Patient currently covered with cefepime and Flagyl to continue, transition to oral antibiotics for short course once his oral intake is improved. Continue supportive care. MMODL / IJN: [id number] /
--- NOTE | 2018-11-22 18:34 | P.PN ---
Progress Note - Text Progress Note Date: 11/22/18 I personally discontinued his nasogastric tube. He reports tolerating full liquid diet. We will advance to regular diet. Patient will not be discharged until tolerating regular diet.
--- NOTE | 2018-11-23 02:14 | P.PN ---
Subjective Progress Note Date: 11/22/18 Principal diagnosis: Small bowel obstruction partial Patient is a 52-year-old male with a known history of recurrent bowel obstruction was admitted to the hospital due to partial small bowel obstruction. Patient underwent expiratory laparotomy. 11/21/2018 Patient is complaining of abdominal discomfort but improved. Did have a watery bowel movement last night. Currently not passing flatness. NG tube is being continued and is draining bilious fluid. Currently tolerating ice chips. General surgery is following. no complaints of fever or chills. Current antibiotics due to E. coli urinary tract infection. 11/22/2018 Patient denied any abdominal discomfort. Patient did have loose bowel movement. Otherwise patient is complaining of left upper extremity swelling. Midline is in place. Continue with leg elevation and monitor. No compressive chest pain or shortness breath. Gen. surgery is on board. Currently on antibiotics for urinary tract infection. Active Medications Generic Name Dose Route Start Last Admin Trade Name Freq PRN Reason Stop Dose Admin Atenolol 50 mg 11/20/18 09:00 11/21/18 07:51 Tenormin PO 50 mg DAILY [facility] Administration Benzocaine 1 spray 11/14/18 08:35 11/14/18 17:32 Hurricaine [place] TOPICAL 1 spray QID PRN Administration Skin Irritation Bisacodyl 10 mg 11/21/18 09:00 11/21/18 07:18 Dulcolax RECTAL Not Given DAILY [facility] Cefepime HCl 2 gm/ Sodium 100 mls @ 200 mls/hr 11/17/18 22:15 11/21/18 19:48 Chloride IVPB 200 mls/hr Q12HR [facility] Administration Metronidazole 500 mg/ IV 100 mls @ 100 mls/hr 11/18/18 00:00 11/21/18 23:38 Solution IVPB 100 mls/hr Q8HR [facility] Administration Potassium Chloride 40 meq/ 1,020 mls @ 75 mls/hr 11/18/18 13:30 11/21/18 16:54 Sodium Chloride IV 75 mls/hr .[id number] [facility] Administration Ferric Sodium Gluconate 125 mg 110 mls @ 100 mls/hr 11/19/18 11:30 11/21/18 10:10 / Sodium Chloride IVPB 100 mls/hr DAILY [facility] Administration Parenteral Vitamin Supplement 1,011 mls @ 100 mls/hr 11/20/18 07:00 07/09/19 17:23 10 ml/ Chromium/Copper/ IV 100 mls/hr Manganese/Seleni/Zn 1 ml/ .BY DURATION [facility] Administration Amino Ac/Electrol/Dextrose/ Calcium Amino Ac/Electrol/Dextrose/Calcium 1,000 mls @ 100 mls/hr 11/20/18 07:00 11/21/18 07:44 Clinimix E 4.25%-D10% Solution IV 100 mls/hr .BY DURATION [facility] Administration Fat Emulsion Intravenous 250 mls @ 20.833 mls/hr 11/20/18 13:00 11/21/18 13:27 Lipids 20% IV 20.833 mls/hr DAILY@1300 [facility] Administration Metoclopramide HCl 10 mg 11/21/18 06:00 11/21/18 23:38 Reglan IVP 10 mg Q6H [facility] Administration Miscellaneous Information 1 each 11/15/18 23:30 Magnesium Per Protocol MISCELLANE DAILY PRN Per Protocol Protocol Miscellaneous Information 1 each 11/15/18 23:30 Potassium Per Protocol MISCELLANE DAILY PRN Per Protocol Protocol Miscellaneous Information 1 each 11/21/18 09:49 Potassium Per Protocol MISCELLANE DAILY PRN Per Protocol Protocol Morphine Sulfate 4 mg 11/13/18 19:50 11/19/18 21:41 Morphine Sulfate (Inj) IV 4 mg Q4HR PRN Administration Severe Pain Naloxone HCl 0.2 mg 11/13/18 19:50 Narcan IV Q2M PRN Opioid Reversal Ondansetron HCl 4 mg 11/13/18 19:50 11/15/18 07:37 Zofran IVP 4 mg Q8HR PRN Administration Nausea And Vomiting Oxybutynin Chloride 5 mg 11/14/18 07:00 11/21/18 19:47 Ditropan Xl PO 5 mg BID@0700,1900 [facility] Administration Pantoprazole Sodium 40 mg 11/14/18 09:00 11/21/18 09:03 Protonix IV 40 mg DAILY [facility] Administration Objective - Vital Signs Vital signs: Vital Signs Temp 99.0 F 11/22/18 20:10 Pulse 84 11/22/18 20:10 Resp 19 11/22/18 20:10 BP 111/69 11/22/18 20:10 Pulse Ox 98 11/22/18 14:22 Intake & Output 11/22/18 11/22/18 11/23/18 06:59 18:59 06:59 Intake Total 1251 Output Total 1700 1600 Balance -449 -1600 Weight 65.771 kg Intake: Intake, IV Titration 1011 Amount Mvi, Adult No.4 with Vit 1011 K 10 ml Trace (Conc-1Ml/ Dose) 1 ml In Amino Acid 4.25%-D10w+Lytes*E* 1,000 ml @ 100 mls/hr IV .BY DURATION [facility] Rx#: [id number] Oral 240 Output: Urine 1700 1600 Uretheral (Porter) 1700 Other: Voiding Method Indwelling Catheter Indwelling Catheter # Bowel Movements 1 1 - Exam PHYSICAL EXAMINATION: Patient is lying in the bed comfortably, no acute distress, awake alert and oriented.. HEENT: Normocephalic. Neck is supple. Pupils reactive. Nostrils clear. Oral cavity is moist. Ears reveal no drainage. Neck reveals no JVD, carotid bruits, or thyromegaly. NG tube in place. CHEST EXAMINATION: Trachea is central. Symmetrical expansion. Lung gilman clear to auscultation and percussion. CARDIAC: Normal S1, S2 with no gallops. No murmurs ABDOMEN: Soft. Distended. Nontender. Bowel sounds present. No organomegaly. No abdominal bruits. Extremities: reveal no edema. No clubbing or cyanosis Neurologically awake, alert, oriented x3 with well-coordinated movements. No focal deficits noted Skin: No rash or skin lesions. Psychiatric: Coperative. Nonsuicidal Musculoskeletal: No joint swelling or deformity. Normal range of motion. - Labs CBC & Chem 7: 11/20/18 12:01 11/22/18 09:11 Labs: Abnormal Lab Results - Last 24 Hours (Table) 11/22/18 Range/Units 09:11 Chloride 113 H (98-107) mmol/L Creatinine 0.39 L (0.66-1.25) mg/dL Glucose 130 H (74-99) mg/dL Calcium 8.1 L (8.4-10.2) mg/dL Assessment and Plan Assessment: Abdominal pain secondary to acute partial small bowel obstruction status post expiratory laparotomy and lysis of adhesions. Severe hypokalemia improved E. coli urinary tract infection Sinus tachycardia Previous history of multiple bowel obstruction Coronary artery disease neck and hypertension Spinabyfida. Paraplegia History of myelodysplasia Iron deficiency anemia History of lithotripsy History of ventriculoperitoneal shunt Nicotine addiction Plan: Patient will be continued on IV hydration. Continue with bowel rest. NG tube is in place. Ice chips as tolerated. We started on liquid diet. Currently on antibiotics in the form of cefepime. ID and general surgery is following. Replace electrolytes. Follow closely and further recommendations based on the clinical course. Prognosis is guarded. Time with Patient: Greater than 30
[2018-11-23] MEDS: SODIUM CHLORIDE 0.45% 1,000 ML with POTASSIUM CHLORIDE 40 MEQ IV SCH ×4 (06:38→14:03)
[2018-11-23] MEDS: MORPHINE SULFATE 4 MG/ML SYRINGE IV PRN (06:50)
[2018-11-23] MEDS: METOCLOPRAMIDE 5 MG/ML 2 ML VIAL IVP SCH ×3 (06:51→18:04)
[2018-11-23] MEDS: ATENOLOL 50 MG TAB PO SCH (08:04)
[2018-11-23] MEDS: OXYBUTYNIN XL 5 MG TAB.ER.24 PO SCH ×2 (08:05→18:05)
[2018-11-23] MEDS: PANTOPRAZOLE 40 MG/10 ML VIAL IV SCH (08:05)
[2018-11-23] MEDS: metroNIDAZOLE-NS PMX 500 MG in SALINE 1 100ML.BAG IVPB SCH ×2 (08:05→16:11)
[2018-11-23 08:13] LABS: African American GFR (CKD) >90 (>60 ml/min/1.73 sqM); Anion Gap 5 mmol/L; Blood Urea Nitrogen 12 mg/dL (9-20); Carbon Dioxide 25 mmol/L (22-30); Chloride 109 mmol/L (98-107); Glucose 142 mg/dL (74-99); Magnesium 2.2 mg/dL (1.6-2.3); Phosphorus 4.3 mg/dL (2.5-4.5); Potassium 4.4 mmol/L (3.5-5.1); Sodium 139 mmol/L (137-145)
[2018-11-23 08:17] LABS: Ionized Calcium 5.1 mg/dL (4.5-5.3)
[2018-11-23] MEDS: 1: MVI, ADULT NO.4 WITH VIT K 10 ML, TRACE (CONC-1ML/DOSE) 1 ML in AMINO ACID 4.25%-D10W IV SCH ×6 (09:19→20:14)
[2018-11-23] MEDS: BISACODYL 10 MG SUPP RECTAL SCH (09:21)
[2018-11-23] MEDS: HEPARIN SODIUM,PORCINE 5,000 UNIT/ML 1 ML VIAL SQ SCH ×2 (09:21→16:11)
[2018-11-23] MEDS: CEFEPIME 2 GM in SODIUM CHLORIDE 0.9% 100 ML IVPB SCH ×2 (09:25→20:15)
[2018-11-23] MEDS: SODIUM FERRIC GLUCONAT-SUCROSE 125 MG in SODIUM CHLORIDE 0.9% 100 ML IVPB SCH (10:30)
--- NOTE | 2018-11-23 11:57 | P.PN ---
<Keli Price A - Last Filed: 11/23/18 11:50> Subjective Progress Note Date: 11/23/18 CHIEF COMPLAINT: small bowel obstruction HISTORY OF PRESENT ILLNESS: Patient is status post exploratory laparotomy with extensive lysis of adhesions. Patient examined at the bedside. NG tube discontinued yesterday. Patient tolerating clear liquid diet. Abdomen appears slightly more firm today. However, patient denies any worsening abdominal pain. Denies nausea or vomiting. Patient received dulcolax this am. Per nursing, patient is having foamy mucus stools. Abdominal xray from this AM reviewed. vital signs stable. Patient is afebrile. PHYSICAL EXAM: VITAL SIGNS: Reviewed. GENERAL: Well-developed in no acute distress. HEENT: No sclera icterus. Extraocular movements grossly intact. Moist buccal mucosa. Head is atraumatic, normocephalic. Hears conversational speech. No nasal drainage. NECK: Supple without lymphadenopathy. CHEST: Non-labored respirations and equal bilateral excursions. CARDIOVASCULAR: Palpable 2+ radial pulses. ABDOMEN: Slighty more firm today. Mild distention. Appropriate mild surgical tenderness. PREVENA to midline incision. Patient with old surgical scars to left lower quadrant and right lower quadrant. MUSCULOSKELETAL: Paraplegic. No clubbing, cyanosis or edema. NEUROLOGIC: No focal or lateralizing signs. Cranial nerves II through XII grossly intact. PSYCH: Appropriate affect. Alert and oriented to person, place and time. SKIN: Well perfused. Good skin turgor. ASSESSMENT: 1. Recurrent small bowel obstruction 2. Sepsis, present on admission, patient presented with leukocytosis, tach ycardia, and fever 3. Recent hospitalization for small bowel obstruction 4. History of colostomy with reversal as a child 5. Hypokalemia 6. Hypomagnesemia 7. History of pressure ulcers 8. Abrasion to buttocks secondary to patient transfer, no pressure ulcer present 9. History of spina bifida with neurogenic bladder and colon PLAN: 1. Continue antibiotics. Infectious disease is on consult 2. Advance diet to regular diet 3. Continue TPN. Will wean off tomorrow morning if patient is tolerating regular diet 4. Incentive spirometry 5. Daily dulcolax suppositories. Continue reglan 6. Possible discharge within the next 24-48 hours Nurse practitioner note has been reviewed by physician. Signing provider agrees with the documented findings, assessment, and plan of care. Objective - Vital Signs Vital signs: Vital Signs Temp 98.7 F 11/23/18 07:00 Pulse 94 11/23/18 07:00 Resp 15 11/23/18 07:00 BP 108/72 11/23/18 07:00 Pulse Ox 95 11/23/18 07:00 Intake & Output 11/22/18 11/23/18 11/23/18 18:59 06:59 18:59 Intake Total 1000 1011 712 Output Total 1600 1803 Balance -600 -792 712 Weight 65.771 kg Intake: Intake, IV Titration 1000 1011 Amount Amino Acid 4.25%-D10w+ 1000 Lytes*E* 1,000 ml @ 100 mls/hr IV .BY DURATION [facility] Rx#:[id number] Mvi, Adult No.4 with Vit 1011 K 10 ml Trace (Conc-1Ml/ Dose) 1 ml In Amino Acid 4.25%-D10w+Lytes*E* 1,000 ml @ 100 mls/hr IV .BY DURATION [facility] Rx#: [id number] Oral 712 Output: Urine 1600 1800 Stool 3 Other: Voiding Method Indwelling Catheter Indwelling Catheter Indwelling Catheter # Bowel Movements 1 - Labs CBC & Chem 7: 11/20/18 12:01 11/23/18 07:37 Labs: Abnormal Lab Results - Last 24 Hours (Table) 11/23/18 Range/Units 07:37 Chloride 109 H (98-107) mmol/L Creatinine 0.44 L (0.66-1.25) mg/dL Glucose 142 H (74-99) mg/dL Calcium 8.0 L (8.4-10.2) mg/dL Assessment and Plan (1) Sepsis Current Visit: Yes Status: Acute Code(s): A41.9 - SEPSIS, UNSPECIFIED ORGANISM SNOMED Code(s): 63742419 (2) Small bowel obstruction Current Visit: Yes Status: Acute Code(s): K56.609 - UNSP INTESTNL OBST, UNSP TO PARTIAL VERSUS COMPLETE OBST SNOMED Code(s): 002162074 (3) Abdominal pain Current Visit: No Status: Acute Code(s): R10.9 - UNSPECIFIED ABDOMINAL PAIN SNOMED Code(s): 89223347 (4) Tachycardia Current Visit: No Status: Acute Code(s): R00.0 - TACHYCARDIA, UNSPECIFIED SNOMED Code(s): 7370739 <Caroline White N - Last Filed: 11/23/18 15:37> Subjective AXR showed resolved ileus and obstruction. He is tolerating regular diet. Plan to discontinue TPN, PICC line, PREVENA wound vac tomorrow for discharge tomorrow. Continue reglan after discharge Objective - Vital Signs Vital signs: Vital Signs Temp 98.4 F 11/23/18 14:53 Pulse 87 11/23/18 14:53 Resp 16 11/23/18 14:53 BP 104/64 11/23/18 14:53 Pulse Ox 96 11/23/18 14:53 Intake & Output 11/22/18 11/23/18 11/23/18 18:59 06:59 18:59 Intake Total 1000 1011 934 Output Total 1600 1803 1400 Balance -600 -792 -466 Weight 65.771 kg Intake: Intake, IV Titration 1000 1011 Amount Amino Acid 4.25%-D10w+ 1000 Lytes*E* 1,000 ml @ 100 mls/hr IV .BY DURATION [facility] Rx#:[id number] Mvi, Adult No.4 with Vit 1011 K 10 ml Trace (Conc-1Ml/ Dose) 1 ml In Amino Acid 4.25%-D10w+Lytes*E* 1,000 ml @ 100 mls/hr IV .BY DURATION [facility] Rx#: [id number] Oral 934 Output: Urine 1600 1800 1400 Stool 3 Other: Voiding Method Indwelling Catheter Indwelling Catheter Indwelling Catheter # Bowel Movements 1 - Labs CBC & Chem 7: 11/20/18 12:01 11/23/18 07:37 Labs: Abnormal Lab Results - Last 24 Hours (Table) 11/23/18 Range/Units 07:37 Chloride 109 H (98-107) mmol/L Creatinine 0.44 L (0.66-1.25) mg/dL Glucose 142 H (74-99) mg/dL Calcium 8.0 L (8.4-10.2) mg/dL Assessment and Plan (1) UTI (urinary tract infection) Current Visit: Yes Status: Acute Code(s): N39.0 - URINARY TRACT INFECTION, SITE NOT SPECIFIED SNOMED Code(s): 67644438 (2) Sepsis Current Visit: Yes Status: Acute Code(s): A41.9 - SEPSIS, UNSPECIFIED ORGANISM SNOMED Code(s): 93358077 (3) Small bowel obstruction Current Visit: Yes Status: Acute Code(s): K56.609 - UNSP INTESTNL OBST, UNSP TO PARTIAL VERSUS COMPLETE OBST SNOMED Code(s): 183508337 (4) Paraplegia Current Visit: Yes Status: Acute Code(s): G82.20 - PARAPLEGIA, UNSPECIFIED SNOMED Code(s): 08956788 (5) Spina bifida Current Visit: Yes Status: Acute Code(s): Q05.9 - SPINA BIFIDA, UNSPECIFIED SNOMED Code(s): 68935186
--- NOTE | 2018-11-23 12:11 | XR ---
EXAMINATION TYPE: XR abdomen 1V DATE OF EXAM: 11/23/2018 COMPARISON: None INDICATION: Bowel resection status post ileus TECHNIQUE: Single view abdomen supine view FINDINGS: Surgical skin mathieu are in the midline. Catheter may be present. There is old fracture and healing of the left hip. Degenerative changes are at the right hip. Nonspecific bowel gas is present. There are some dilated small bowel loops within the midabdomen reese mated to measure 3.7 cm. Colonic bowel gas is present. No mass effect is evident. Psoas margins are normal. No organomegaly is present. IMPRESSION: 1. Findings suggestive for mild ileus.
[2018-11-23] MEDS: FAT EMULSION 20% 250 ML IV SCH (13:06)
--- NOTE | 2018-11-23 15:28 | P.PN ---
Progress Note - Text Progress Note Date: 11/23/18 AXR personally reviewed by me showed resolved ileus and obstruction. He is tolerating regular diet. Plan to discontinue TPN, PICC line, PREVENA wound vac tomorrow for discharge tomorrow.
--- NOTE | 2018-11-23 16:50 | US ---
EXAMINATION TYPE: US venous doppler duplex UE LT DATE OF EXAM: 11/23/2018 COMPARISON: NONE CLINICAL HISTORY: Swelling. left arm swelling, recent picc line placement, no h/o dvt SIDE PERFORMED: Left Left Arm: Appears negative for DVT IMPRESSION: 1. Left upper extremity ultrasound negative for deep venous thrombosis
--- NOTE | 2018-11-23 17:58 | PN ---
PROGRESS NOTE DATE OF SERVICE: 11/23/2018. REASON FOR FOLLOWUP: Urinary tract infection, E coli. INTERVAL HISTORY: The patient is currently afebrile. The patient has been breathing comfortably. Still has the NG in. Has passed some gas, though no bowel movement. No worsening abdominal distention. No chest pain, shortness of breath or cough. PHYSICAL EXAMINATION: Blood pressure 104/64 with a pulse of 87, temperature 98.4. He is 96% on room air. General description is a middle-aged male lying in bed in no distress. RESPIRATORY SYSTEM: Unlabored breathing. Clear to auscultation anteriorly. HEART: S1, S2. Regular rate and rhythm. ABDOMEN: Soft. Mildly distended. No guarding or rigidity. LABS: No CBC has been done. DIAGNOSTIC IMPRESSION AND PLAN: Patient admitted to hospital with fever with concern about urinary tract infection. However, the patient did have an ileus requiring laparotomy and extensive lysis of adhesions. Patient to continue with cefepime and Flagyl while monitoring his clinical course closely. Continue with supportive care. MMODL / IJN: [id number] /
[2018-11-24] MEDS: metroNIDAZOLE-NS PMX 500 MG in SALINE 1 100ML.BAG IVPB SCH ×3 (00:44→10:49)
[2018-11-24] MEDS: METOCLOPRAMIDE 5 MG/ML 2 ML VIAL IVP SCH ×3 (00:44→12:46)
[2018-11-24] MEDS: HEPARIN SODIUM,PORCINE 5,000 UNIT/ML 1 ML VIAL SQ SCH ×2 (00:44→09:50)
[2018-11-24] MEDS: 1: MVI, ADULT NO.4 WITH VIT K 10 ML, TRACE (CONC-1ML/DOSE) 1 ML in AMINO ACID 4.25%-D10W IV SCH ×9 (04:18→12:33)
[2018-11-24 07:28] LABS: African American GFR (CKD) >90 (>60 ml/min/1.73 sqM); Anion Gap 6 mmol/L; Blood Urea Nitrogen 13 mg/dL (9-20); Calcium 7.9 mg/dL (8.4-10.2); Carbon Dioxide 24 mmol/L (22-30); Chloride 108 mmol/L (98-107); Glucose 141 mg/dL (74-99); Magnesium 2.2 mg/dL (1.6-2.3); Phosphorus 3.8 mg/dL (2.5-4.5); Potassium 4.5 mmol/L (3.5-5.1); Sodium 138 mmol/L (137-145)
[2018-11-24 07:56] VITALS: TEMP 98.9
[2018-11-24] MEDS: SODIUM CHLORIDE 0.45% 1,000 ML with POTASSIUM CHLORIDE 40 MEQ IV SCH ×2 (09:24)
[2018-11-24] MEDS: ATENOLOL 50 MG TAB PO SCH (09:50)
[2018-11-24] MEDS: OXYBUTYNIN XL 5 MG TAB.ER.24 PO SCH (09:50)
[2018-11-24] MEDS: BISACODYL 10 MG SUPP RECTAL SCH ×3 (09:51→11:46)
[2018-11-24] MEDS: CEFEPIME 2 GM in SODIUM CHLORIDE 0.9% 100 ML IVPB SCH (09:53)
[2018-11-24] MEDS: PANTOPRAZOLE 40 MG/10 ML VIAL IV SCH (10:08)
[2018-11-24] MEDS: SODIUM FERRIC GLUCONAT-SUCROSE 125 MG in SODIUM CHLORIDE 0.9% 100 ML IVPB SCH (11:32)
--- NOTE | 2018-11-24 12:14 | P.PN ---
<Keli Price Km - Last Filed: 11/24/18 12:08> Subjective Progress Note Date: 11/24/18 CHIEF COMPLAINT: small bowel obstruction HISTORY OF PRESENT ILLNESS: Patient is status post exploratory laparotomy with extensive lysis of adhesions. Patient examined at the bedside. He is tolerating regular diet. Having BMs. Denies nausea or vomiting. Denies abdominal pain. PREVENA discontinued this morning at the bedside. PHYSICAL EXAM: VITAL SIGNS: Reviewed. GENERAL: Well-developed in no acute distress. HEENT: No sclera icterus. Extraocular movements grossly intact. Moist buccal mucosa. Head is atraumatic, normocephalic. Hears conversational speech. No nasal drainage. NECK: Supple without lymphadenopathy. CHEST: Non-labored respirations and equal bilateral excursions. CARDIOVASCULAR: Palpable 2+ radial pulses. ABDOMEN: Soft. Nondistended. Nontender. PREVENA removed at the bedside. Serous drainage. MUSCULOSKELETAL: Paraplegic. No clubbing, cyanosis or edema. NEUROLOGIC: No focal or lateralizing signs. Cranial nerves II through XII grossly intact. PSYCH: Appropriate affect. Alert and oriented to person, place and time. SKIN: Well perfused. Good skin turgor. ASSESSMENT: 1. Recurrent small bowel obstruction 2. Sepsis, present on admission, patient presented with leukocytosis, tachycardia, and fever 3. Recent hospitalization for small bowel obstruction 4. History of colostomy with reversal as a child 5. Hypokalemia 6. Hypomagnesemia 7. History of pressure ulcers 8. History of spina bifida with neurogenic bladder and colon PLAN: 1. Continue regular diet 2. Discontinue TPN 3. Continue daily Dulcolax suppositories and Reglan. 4. PREVENA discontinued at the bedside. Patient with serous drainage due to ascites fluid. Will place dry dressing on at this time. Patient is stable for discharge today. Wound Vac to be applied at receiving facility for drainage collection to prevent excoriation. Nurse practitioner note has been reviewed by physician. Signing provider agrees with the documented findings, assessment, and plan of care. Objective - Vital Signs Vital signs: Vital Signs Temp 98.9 F 11/24/18 07:10 Pulse 106 H 11/24/18 07:10 Resp 16 11/24/18 07:10 BP 136/79 11/24/18 07:10 Pulse Ox 95 07/12/19 07:10 Intake & Output 11/23/18 11/24/18 11/24/18 18:59 06:59 18:59 Intake Total 2156 1011 1100 Output Total 2350 850 Balance -856 348 1342 Intake: Intake, IV Titration 1000 1011 1000 Amount Amino Acid 4.25%-D10w+ 1000 1000 Lytes*E* 1,000 ml @ 100 mls/hr IV .BY DURATION [facility] Rx#:[id number] Mvi, Adult No.4 with Vit 1011 K 10 ml Trace (Conc-1Ml/ Dose) 1 ml In Amino Acid 4.25%-D10w+Lytes*E* 1,000 ml @ 100 mls/hr IV .BY DURATION [facility] Rx#: [id number] Oral 1156 100 Output: Urine 2350 850 Other: Voiding Method Indwelling Catheter Indwelling Catheter Indwelling Catheter # Bowel Movements 1 1 - Labs CBC & Chem 7: 11/20/18 12:01 11/24/18 06:36 Labs: Abnormal Lab Results - Last 24 Hours (Table) 11/24/18 Range/Units 06:36 Chloride 108 H (98-107) mmol/L Creatinine 0.40 L (0.66-1.25) mg/dL Glucose 141 H (74-99) mg/dL Calcium 7.9 L (8.4-10.2) mg/dL Assessment and Plan (1) Sepsis Status: Acute Code(s): A41.9 - SEPSIS, UNSPECIFIED ORGANISM SNOMED Code(s): 16118606 (2) Small bowel obstruction Status: Acute Code(s): K56.609 - UNSP INTESTNL OBST, UNSP TO PARTIAL VERSUS COMPLETE OBST SNOMED Code(s): 230709737 (3) Abdominal pain Status: Acute Code(s): R10.9 - UNSPECIFIED ABDOMINAL PAIN SNOMED Code(s): 14146329 (4) Tachycardia Status: Acute Code(s): R00.0 - TACHYCARDIA, UNSPECIFIED SNOMED Code(s): 6271339 <Caroline White - Last Filed: 11/24/18 21:43> Subjective As above, scrotal edema including serous drainage from incision consistent with ascites. Recommend wound vac to prevent excoriation of the skin. Outpatient follow up in the office. Agreeable with discharge. Objective - Vital Signs Vital signs: Vital Signs Temp 98.9 F 11/24/18 14:21 Pulse 80 11/24/18 14:21 Resp 17 11/24/18 14:21 BP 114/79 11/24/18 14:21 Pulse Ox 97 11/24/18 14:21 Intake & Output 11/24/18 11/24/18 11/25/18 06:59 18:59 06:59 Intake Total 1011 1360 Output Total 850 500 Balance 161 860 Intake: Intake, IV Titration 1011 1000 Amount Amino Acid 4.25%-D10w+ 1000 Lytes*E* 1,000 ml @ 100 mls/hr IV .BY DURATION [facility] Rx#:[id number] Mvi, Adult No.4 with Vit 1011 K 10 ml Trace (Conc-1Ml/ Dose) 1 ml In Amino Acid 4.25%-D10w+Lytes*E* 1,000 ml @ 100 mls/hr IV .BY DURATION [facility] Rx#: [id number] Oral 360 Output: Urine 850 500 Uretheral (Porter) 500 Other: Voiding Method Indwelling Catheter Indwelling Catheter # Bowel Movements 1 1 - Labs CBC & Chem 7: 11/20/18 12:01 11/24/18 06:36 Labs: Abnormal Lab Results - Last 24 Hours (Table) 11/24/18 Range/Units 06:36 Chloride 108 H (98-107) mmol/L Creatinine 0.40 L (0.66-1.25) mg/dL Glucose 141 H (74-99) mg/dL Calcium 7.9 L (8.4-10.2) mg/dL Assessment and Plan (1) UTI (urinary tract infection) Status: Acute Code(s): N39.0 - URINARY TRACT INFECTION, SITE NOT SPECIFIED SNOMED Code(s): 37583931 (2) Sepsis Status: Acute Code(s): A41.9 - SEPSIS, UNSPECIFIED ORGANISM SNOMED Code(s): 52461589 (3) Small bowel obstruction Status: Acute Code(s): K56.609 - UNSP INTESTNL OBST, UNSP TO PARTIAL VERSUS COMPLETE OBST SNOMED Code(s): 626555986 (4) Paraplegia Status: Acute Code(s): G82.20 - PARAPLEGIA, UNSPECIFIED SNOMED Code(s): 19981647 (5) Spina bifida Status: Acute Code(s): Q05.9 - SPINA BIFIDA, UNSPECIFIED SNOMED Code(s): 33476065
--- NOTE | 2018-11-24 13:55 | P.PN ---
Subjective Progress Note Date: 11/23/18 Principal diagnosis: Small bowel obstruction partial Patient is a 52-year-old male with a known history of recurrent bowel obstruction was admitted to the hospital due to partial small bowel obstruction. Patient underwent expiratory laparotomy. 11/21/2018 Patient is complaining of abdominal discomfort but improved. Did have a watery bowel movement last night. Currently not passing flatness. NG tube is being continued and is draining bilious fluid. Currently tolerating ice chips. General surgery is following. no complaints of fever or chills. Current antibiotics due to E. coli urinary tract infection. 11/22/2018 Patient denied any abdominal discomfort. Patient did have loose bowel movement. Otherwise patient is complaining of left upper extremity swelling. Midline is in place. Continue with leg elevation and monitor. No compressive chest pain or shortness breath. Gen. surgery is on board. Currently on antibiotics for urinary tract infection. 11/23/2018 Patient denied any complaints of abdominal pain. No nausea vomiting. Patient was started on regular diet. TPN has been discontinued. NG tube will be discontinued as well. Anticipate discharged to rehab in next 24-48 hours. Patient is also on antibiotics for urinary tract infection. Continue the wound care. No fever no chills. No complaints of chest pain or shortness of breath. Ultrasound of the left upper extremity showed no evidence of DVT. Swelling is improving. all other review of systems negative except the above Active Medications Generic Name Dose Route Start Last Admin Trade Name Freq PRN Reason Stop Dose Admin Atenolol 50 mg 11/20/18 09:00 11/21/18 07:51 Tenormin PO 50 mg DAILY [facility] Administration Benzocaine 1 spray 11/14/18 08:35 11/14/18 17:32 Hurricaine Colstrip TOPICAL 1 spray QID PRN Administration Skin Irritation Bisacodyl 10 mg 11/21/18 09:00 11/21/18 07:18 Dulcolax RECTAL Not Given DAILY [facility] Cefepime HCl 2 gm/ Sodium 100 mls @ 200 mls/hr 11/17/18 22:15 11/21/18 19:48 Chloride IVPB 200 mls/hr Q12HR [facility] Administration Metronidazole 500 mg/ IV 100 mls @ 100 mls/hr 11/18/18 00:00 11/21/18 23:38 Solution IVPB 100 mls/hr Q8HR [facility] Administration Potassium Chloride 40 meq/ 1,020 mls @ 75 mls/hr 11/18/18 13:30 11/21/18 16:54 Sodium Chloride IV 75 mls/hr .[id number] [facility] Administration Ferric Sodium Gluconate 125 mg 110 mls @ 100 mls/hr 11/19/18 11:30 11/21/18 10:10 / Sodium Chloride IVPB 100 mls/hr DAILY [facility] Administration Parenteral Vitamin Supplement 1,011 mls @ 100 mls/hr 11/20/18 07:00 11/21/18 17:23 10 ml/ Chromium/Copper/ IV 100 mls/hr Manganese/Seleni/Zn 1 ml/ .BY DURATION [facility] Administration Amino Ac/Electrol/Dextrose/ Calcium Amino Ac/Electrol/Dextrose/Calcium 1,000 mls @ 100 mls/hr 11/20/18 07:00 11/21/18 07:44 Clinimix E 4.25%-D10% Solution IV 100 mls/hr .BY DURATION [facility] Administration Fat Emulsion Intravenous 250 mls @ 20.833 mls/hr 11/20/18 13:00 11/21/18 13:27 Lipids 20% IV 20.833 mls/hr DAILY@1300 [facility] Administration Metoclopramide HCl 10 mg 11/21/18 06:00 11/21/18 23:38 Reglan IVP 10 mg Q6H [facility] Administration Miscellaneous Information 1 each 11/15/18 23:30 Magnesium Per Protocol MISCELLANE DAILY PRN Per Protocol Protocol Miscellaneous Information 1 each 11/15/18 23:30 Potassium Per Protocol MISCELLANE DAILY PRN Per Protocol Protocol Miscellaneous Information 1 each 11/21/18 09:49 Potassium Per Protocol MISCELLANE DAILY PRN Per Protocol Protocol Morphine Sulfate 4 mg 11/13/18 19:50 11/19/18 21:41 Morphine Sulfate (Inj) IV 4 mg Q4HR PRN Administration Severe Pain Naloxone HCl 0.2 mg 11/13/18 19:50 Narcan IV Q2M PRN Opioid Reversal Ondansetron HCl 4 mg 11/13/18 19:50 11/15/18 07:37 Zofran IVP 4 mg Q8HR PRN Administration Nausea And Vomiting Oxybutynin Chloride 5 mg 11/14/18 07:00 11/21/18 19:47 Ditropan Xl PO 5 mg BID@0700,1900 [facility] Administration Pantoprazole Sodium 40 mg 11/14/18 09:00 11/21/18 09:03 Protonix IV 40 mg DAILY [facility] Administration Objective - Vital Signs Vital signs: Vital Signs Temp 98.4 F 11/23/18 14:53 Pulse 87 11/23/18 14:53 Resp 16 11/23/18 14:53 BP 104/64 11/23/18 14:53 Pulse Ox 96 11/23/18 14:53 Intake & Output 11/22/18 11/23/18 11/23/18 18:59 06:59 18:59 Intake Total 1000 1011 934 Output Total 1600 1803 900 Balance -600 -792 34 Weight 65.771 kg Intake: Intake, IV Titration 1000 1011 Amount Amino Acid 4.25%-D10w+ 1000 Lytes*E* 1,000 ml @ 100 mls/hr IV .BY DURATION [facility] Rx#:[id number] Mvi, Adult No.4 with Vit 1011 K 10 ml Trace (Conc-1Ml/ Dose) 1 ml In Amino Acid 4.25%-D10w+Lytes*E* 1,000 ml @ 100 mls/hr IV .BY DURATION [facility] Rx#: [id number] Oral 934 Output: Urine 1600 1800 900 Stool 3 Other: Voiding Method Indwelling Catheter Indwelling Catheter Indwelling Catheter # Bowel Movements 1 - Exam PHYSICAL EXAMINATION: Patient is lying in the bed comfortably, no acute distress, awake alert and oriented.. HEENT: Normocephalic. Neck is supple. Pupils reactive. Nostrils clear. Oral cavity is moist. Ears reveal no drainage. Neck reveals no JVD, carotid bruits, or thyromegaly. NG tube in place. CHEST EXAMINATION: Trachea is central. Symmetrical expansion. Lung gilman clear to auscultation and percussion. CARDIAC: Normal S1, S2 with no gallops. No murmurs ABDOMEN: Soft. Distended. Nontender. Abdominal wound is bandaged. Wound VAC. Bowel sounds present. No organomegaly. No abdominal bruits. Extremities: reveal no edema. No clubbing or cyanosis Neurologically awake, alert, oriented x3 with well-coordinated movements. No focal deficits noted Skin: No rash or skin lesions. Psychiatric: Coperative. Nonsuicidal Musculoskeletal: No joint swelling or deformity. Normal range of motion. - Labs CBC & Chem 7: 11/20/18 12:01 11/24/18 06:36 Labs: Abnormal Lab Results - Last 24 Hours (Table) 11/23/18 Range/Units 07:37 Chloride 109 H (98-107) mmol/L Creatinine 0.44 L (0.66-1.25) mg/dL Glucose 142 H (74-99) mg/dL Calcium 8.0 L (8.4-10.2) mg/dL Assessment and Plan Assessment: Abdominal pain secondary to acute partial small bowel obstruction status post expiratory laparotomy and lysis of adhesions. Severe hypokalemia improved E. coli urinary tract infection Sinus tachycardia Previous history of multiple bowel obstruction Coronary artery disease neck and hypertension Spinabyfida. Paraplegia History of myelodysplasia Iron deficiency anemia History of lithotripsy History of ventriculoperitoneal shunt Nicotine addiction Plan: Patient will be continued on IV hydration. Patient was started on regular diet and TPN has been discontinued. . Currently on antibiotics in the form of cefepime. ID and general surgery is following. Replace electrolytes. Follow closely and further recommendations based on the clinical course. Prognosis is guarded. Time with Patient: Greater than 30
--- NOTE | 2018-11-24 14:00 | P.DS ---
Providers Date of admission: 11/13/18 19:50 Expected date of discharge: 11/24/18 Attending physician: Adrianne Wasserman Consults: 11/13/18 19:52 Consult Physician Routine Consulting Provider: Caroline White Consult Reason/Comments: sbo Do you want consulting provider notified?: Yes 11/13/18 22:01 Consult Physician Routine Consulting Provider: Traci Dial Consult Reason/Comments: fever Do you want consulting provider notified?: Yes Primary care physician: Jose Cano Hospital Course: Discharge diagnosis Abdominal pain secondary to acute partial small bowel obstruction status post expiratory laparotomy and lysis of adhesions. Severe hypokalemia improved E. coli urinary tract infection Sinus tachycardia Previous history of multiple bowel obstruction Coronary artery disease neck and hypertension Spinabyfida. Paraplegia History of myelodysplasia Iron deficiency anemia History of lithotripsy History of ventriculoperitoneal shunt Nicotine addiction next Hospital course Patient is a 52-year-old male with a known history of recurrent bowel obstruction was admitted to the hospital due to partial small bowel obstruction. Patient underwent expiratory laparotomy. 11/21/2018 Patient is complaining of abdominal discomfort but improved. Did have a watery bowel movement last night. Currently not passing flatness. NG tube is being continued and is draining bilious fluid. Currently tolerating ice chips. General surgery is following. no complaints of fever or chills. Current antibiotics due to E. coli urinary tract infection. 11/22/2018 Patient denied any abdominal discomfort. Patient did have loose bowel movement. Otherwise patient is complaining of left upper extremity swelling. Midline is in place. Continue with leg elevation and monitor. No compressive chest pain or shortness breath. Gen. surgery is on board. Currently on antibiotics for urinary tract infection. 11/23/2018 Patient denied any complaints of abdominal pain. No nausea vomiting. Patient was started on regular diet. TPN has been discontinued. NG tube will be discontinued as well. Anticipate discharged to rehab in next 24-48 hours. Patient is also on antibiotics for urinary tract infection. Continue the wound care. No fever no chills. No complaints of chest pain or shortness of breath. Ultrasound of the left upper extremity showed no evidence of DVT. Swelling is improving. 11/24/2018 Patient denied any new complaints today. Tolerating oral diet. NG tube is discontinued. TPN is off. No complains of fever or chills. Continued with IV antibiotics in the form of cefepime., as per ID recommendations. Patient will be continued on wound care as well as care of the decubitus ulcers at rehab. Patient is stable to be discharged. Vital Signs 11/24/18 07:10 Temperature 98.9 F Pulse Rate [ 106 H Pulse Oximetery ] Respiratory 16 Rate Blood Pressure 136/79 [Right Arm] O2 Sat by Pulse 95 Oximetry Wound VAC will be placed back at the rehab. PHYSICAL EXAMINATION: Patient is lying in the bed comfortably, no acute distress, awake alert and oriented.. HEENT: Normocephalic. Neck is supple. Pupils reactive. Nostrils clear. Oral cavity is moist. Ears reveal no drainage. Neck reveals no JVD, carotid bruits, or thyromegaly. NG tube in place. CHEST EXAMINATION: Trachea is central. Symmetrical expansion. Lung gilman clear to auscultation and percussion. CARDIAC: Normal S1, S2 with no gallops. No murmurs ABDOMEN: Soft. Distended. Nontender. Abdominal wound is bandaged. Wound VAC removed.. Bowel sounds present. No organomegaly. No abdominal bruits. Extremities: reveal no edema. No clubbing or cyanosis Neurologically awake, alert, oriented x3 with well-coordinated movements. No focal deficits noted Skin: No rash or skin lesions. Psychiatric: Coperative. Nonsuicidal Musculoskeletal: No joint swelling or deformity. Normal range of motion. Total time taken greater than 35 minutes including 18 minutes for counseling and coordination of care. Patient Condition at Discharge: Fair Plan - Discharge Summary Discharge Rx Participant: No New Discharge Prescriptions: New Metoclopramide [Reglan] 10 mg PO ACHS #30 tab Acetaminophen [Tylenol] 650 mg PO Q4H PRN #30 tab PRN Reason: Pain Atenolol [Tenormin] 50 mg PO DAILY tab metroNIDAZOLE [Flagyl] 500 mg PO Q8HR #21 tab Cefepime HCl [Maxipime] 2 gm IV Q12H #14 vial Continue Potassium Chloride [Klor-Con 20] 20 meq PO DAILY@0700 Heparin Sodium,Porcine [Heparin Sodium] 5,000 unit SQ Q8HR Oxybutynin Xl [Ditropan XL] 5 mg PO BID@0700,1900 Famotidine [Pepcid] 20 mg PO DAILY@0700 Atorvastatin [Lipitor] 10 mg PO HS@2100 Acetaminophen Tab [Tylenol] 650 mg PO Q4H PRN PRN Reason: PAIN/FEVER Changed Sennosides-Docusate Sodium [Senokot-S] 1 tab PO BID@0700,1700 PRN #0 PRN Reason: Constipation Discontinued Atenolol 25 mg PO DAILY@0700 Discharge Medication List Potassium Chloride [Klor-Con 20] 20 meq PO DAILY@0700 07/15/17 [History] Acetaminophen Tab [Tylenol] 650 mg PO Q4H PRN 11/10/18 [History] Atorvastatin [Lipitor] 10 mg PO HS@2100 11/10/18 [History] Famotidine [Pepcid] 20 mg PO DAILY@0700 11/10/18 [History] Heparin Sodium,Porcine [Heparin Sodium] 5,000 unit SQ Q8HR 11/10/18 [History] Oxybutynin Xl [Ditropan XL] 5 mg PO BID@0700,1900 11/10/18 [History] Metoclopramide [Reglan] 10 mg PO ACHS #30 tab 11/23/18 [Rx] Acetaminophen [Tylenol] 650 mg PO Q4H PRN #30 tab 11/24/18 [Rx] Atenolol [Tenormin] 50 mg PO DAILY tab 11/24/18 [Rx] Cefepime HCl [Maxipime] 2 gm IV Q12H #14 vial 11/24/18 [Rx] Sennosides-Docusate Sodium [Senokot-S] 1 tab PO BID@0700,1700 PRN #0 11/24/18 [Rx] metroNIDAZOLE [Flagyl] 500 mg PO Q8HR #21 tab 11/24/18 [Rx] Follow up Appointment(s)/Referral(s): Caroline White MD [STAFF PHYSICIAN] - 12/12/18 2:15 pm Jose Cano MD [Primary Care Provider] - 1-2 days (ECF) Patient Instructions/Handouts: Lysis of Abdominal Adhesions (DC), Bowel Obstruction (DC), Negative Pressure Wound Therapy (DC), Acute Wounds (DC) Activity/Diet/Wound Care/Special Instructions: Jaime to be removed in surgeon's office. Wound vac to be removed 11/30/18 WOUND VAC TO ABDOMINAL INCISION FOR DRAINAGE COLLECTION 125mmHG Continuous Black Granufoam dressing opticell to wound on back q 48 hours change prn for saturation Discharge Disposition: TRANSFER TO SNF/ECF
[2018-11-24 14:21] VITALS: BP 114/79; PULSE 80; RESP 17
--- NOTE | 2018-11-24 15:00 | PN ---
PROGRESS NOTE DATE OF SERVICE: 11/24/2018 REASON FOR FOLLOWUP: 1. Escherichia coli urinary tract infection. 2. Patient with bowel obstruction status post extensive lysis of adhesions. INTERVAL HISTORY: The patient is currently afebrile. The patient allergy has been discontinued. The patient has been able to tolerate his diet. No nausea, no vomiting. No chest pain, shortness of breath or cough. Overall, the patient is feeling better. PHYSICAL EXAMINATION: Blood pressure is 136/79 with a pulse of 83, temperature 98.9. He is 95% on room air. General description is a middle-aged male, lying in bed in no distress. RESPIRATORY SYSTEM: Unlabored breathing, clear to auscultation anteriorly. HEART: S1, S2. Regular rate and rhythm.. ABDOMEN: Soft. Incision looks clean. Examination of the back area on the mid back. He did have a deep tissue injury, but no definite cellulitis. LABS: BUN of 13, creatinine 0.40. DIAGNOSTIC TESTS THE PATIENT: 1. Patient brought to the hospital with a fever which could be related to E coli urinary tract infection with multidrug resistant pathogen in addition to the possible abdomen for this patient did have a bowel obstruction requiring laparotomy and extensive lysis of adhesions. Patient responded to cefepime and Flagyl that will be continued for another week as the patient is going to a [facility] anyway. He did have a PICC line. Flagyl was switched over to p.o. and close outpatient followup. 2. The patient with the deep tissues in the mid back area. We will apply Aquacel Silver dressing, keep the area dry and off the pressure. MMODL / IJN: [id number] /
--- NOTE | 2018-11-27 12:36 | CDI ---
Documentation Clarification Form Date: 11/27/2018 From: Darya Bishop Phone: If questions call Negar Zavala @ [phone], Hours-8:30 am & 5 pm M- F Admit Date: 11/13/2018 7:50:00 PM Patient Name: Reggie Villagran Visit Number: [id number] Discharge Date: 11/24/2018 4:53:00 PM ATTENTION: The Clinical Documentation Specialists (CDI) and [facility] Coding Staff appreciate your assistance in clarifying documentation. Please respond to the clarification below the line at the bottom and electronically sign. The CDI & [facility] Coding staff will review the response and follow-up if needed. Please note: Queries are made part of the Legal Health Record. If you have any questions, please contact the author of this message via ITS. Dr. Traci Dial A diagnosis of UTI has been documented in your consult and your progress notes. History/Risk Factors: spina bifida w paralysis, hx recurrent UTI's, chronic indwelling Porter catheter Per documentation in your consult this patient was admitted with an indwelling Porter catheter. Urinalysis: leukocyte esterase-small, RBC-91, WBC-65, hyaline casts-89 Urine culture: E coli multi-drug resistant Lab results: WBC-11.3, Neutrophil-6.60/9.10 Treatment: change Porter, IV fluids, IV Zosyn switched to IV Cefepime due to resistance In your professional opinion, can you please clarify the etiology of the UTI, if known? Porter catheter UTI not related to catheter/urostomy Other condition, please specify Unable to determine ___foley catheter related MTDD
== END 2018-11-24 16:53 | DRG 335 ==
LOC: EC 18:28 → 4SSUR 19:50
PROVIDERS: ADMIT Hospitalist; ATTEND Hospitalist
PROC: 0DNU0ZZ Release Omentum, Open Approach (ICD-10-PCS; 2018-11-15)
PROC: 0W3J0ZZ Control Bleeding in Pelvic Cavity, Open Approach (ICD-10-PCS; 2018-11-15)
PROC: 0DN80ZZ Release Small Intestine, Open Approach (ICD-10-PCS; principal; 2018-11-15 08:30)
PROC: 0D9670Z Drainage of Stomach with Drainage Device, Via Natural or Artificial Opening (ICD-10-PCS; 2018-11-19)
PROC: 3E0436Z Introduction of Nutritional Substance into Central Vein, Percutaneous Approach (ICD-10-PCS; 2018-11-19)
PROC: 02HV33Z Insertion of Infusion Device into Superior Vena Cava, Percutaneous Approach (ICD-10-PCS; 2018-11-21)
DX: K56.51 Intestinal adhesions [bands], with partial obstruction (principal); A41.9 Sepsis, unspecified organism; T83.511A Infection and inflammatory reaction due to indwelling urethral catheter, initial encounter; N39.0 Urinary tract infection, site not specified; G82.20 Paraplegia, unspecified; K46.0 Unspecified abdominal hernia with obstruction, without gangrene; K59.2 Neurogenic bowel, not elsewhere classified; R18.8 Other ascites; L89.151 Pressure ulcer of sacral region, stage 1; N31.9 Neuromuscular dysfunction of bladder, unspecified; E83.42 Hypomagnesemia; I11.9 Hypertensive heart disease without heart failure; Z66 Do not resuscitate; D50.9 Iron deficiency anemia, unspecified; D46.9 Myelodysplastic syndrome, unspecified; Q05.9 Spina bifida, unspecified; E87.6 Hypokalemia; M24.552 Contracture, left hip; M24.551 Contracture, right hip; I25.10 Atherosclerotic heart disease of native coronary artery without angina pectoris; K21.9 Gastro-esophageal reflux disease without esophagitis; K66.0 Peritoneal adhesions (postprocedural) (postinfection); E78.5 Hyperlipidemia, unspecified; Z16.24 Resistance to multiple antibiotics; Z16.11 Resistance to penicillins; Z79.899 Other long term (current) drug therapy; Z87.440 Personal history of urinary (tract) infections; Z87.891 Personal history of nicotine dependence; Z98.2 Presence of cerebrospinal fluid drainage device; Z80.9 Family history of malignant neoplasm, unspecified; Z82.49 Family history of ischemic heart disease and other diseases of the circulatory system
CPT/HCPCS: 36573; 71045; 74018; 74019; 74245; 80048; 81001; 82330; 82728; 83540; 83550; 83735; 84100; 84132; 84443; 84478; 84484; 85025; 85610; 85730; 86850; 86900; 86901; 87040; 87077; 87086; 87186; 87324; 93005; 96361; 96365; 96372; 99285

== ENCOUNTER 2020-03-19 07:26 | Day surgery (SDC) | payer MEDICARE, OTHER ==
[2020-03-18 09:45] VITALS: BMI 25.7
[~2020-03-19 07:26] MED LIST changes: -ALTEPLASE 2 MG VIAL (CATHFLO) IV ONE; +LACTATED RINGERS 1,000 ML IV SCH
[2020-03-19] MEDS ORDERED: LACTATED RINGERS 1,000 ML IV ONE (07:44)
[2020-03-19 07:45] VITALS: TEMP 97.9
--- NOTE | 2020-03-19 08:55 | P.GSHP ---
History of Present Illness H&P Date: 03/19/20 CHIEF COMPLAINT: Colon screen HISTORY OF PRESENT ILLNESS: The patient is a 54-year-old male who presents for colon screen. Lower endoscopy was offered for further evaluation and management. PAST MEDICAL HISTORY: Please see list. PAST SURGICAL HISTORY: Please see list. MEDICATIONS: Please see list. ALLERGIES: Please see list. SOCIAL HISTORY: No illicit drug use FAMILY HISTORY: No reports of Crohn disease or ulcerative colitis. REVIEW OF ORGAN SYSTEMS: CONSTITUTIONAL: No reports of fevers or chills. PHYSICAL EXAM: VITAL SIGNS: Stable GENERAL: Well-developed pleasant in no acute distress. HEENT: No scleral icterus. Extraocular movements grossly intact. Moist buccal mucosa. NECK: Supple without lymphadenopathy. CHEST: Unlabored respirations. Equal bilateral excursions. CARDIOVASCULAR: Regular rate and rhythm. Distal 2+ pulses. ABDOMEN: Soft, nontender, nondistended. MUSCULOSKELETAL: No clubbing, cyanosis, or edema. ASSESSMENT: 1. Colon screen. PLAN: 1. Recommend proceeding with a lower endoscopy Past Medical History Past Medical History: Deep Vein Thrombosis (DVT), Hyperlipidemia, Hypertension Additional Past Medical History / Comment(s): hx wounds-vj buttocks-currently not currently open,spina bifida, wjvfhhdwfkosh-oaaaxgcfhx-nkuw w/c, constipation, "bowel blockages", requires digital removal of stool, "borderline cholesterol", chronic bladder infections- indwelling catheter, hx two bowel obstructions History of Any Multi-Drug Resistant Organisms: None Reported Past Surgical History: Adenoidectomy, Back Surgery, Tonsillectomy Additional Past Surgical History / Comment(s): lithotripsy, multiple leg,foot and toe surgeries to release tendons, colostomy with reversal as a child, 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, surgery for bowel obstruction 2019 x 2 Past Anesthesia/Blood Transfusion Reactions: No Reported Reaction Additional Past Anesthesia/Blood Transfusion Reaction / Comment(s): DIFF IV START Smoking Status: Current every day smoker - Past Family History Sister(s) Family Medical History: Cancer Additional Family Medical History / Comment(s): colon/rectal Mother Family Medical History: Coronary Artery Disease (CAD) Father Family Medical History: Myocardial Infarction (CT) Medications and Allergies Home Medications Medication Instructions Recorded Confirmed Type Potassium Chloride [Klor-Con 20] 20 meq PO DAILY 07/15/17 03/18/20 History Atorvastatin [Lipitor] 10 mg PO DAILY 11/10/18 03/18/20 History Metoclopramide [Reglan] 10 mg PO ACHS #30 tab 11/23/18 03/18/20 Rx Atenolol [Tenormin] 100 mg PO HS 03/18/20 03/18/20 History Lisinopril-Hctz 20-25 mg 1 tab PO BID 03/18/20 03/18/20 History [Zestoretic 20-25] Oxybutynin Chloride [Ditropan XL] 10 mg PO DAILY 03/18/20 03/18/20 History Pantoprazole Sodium [Protonix] 40 mg PO BID 03/18/20 03/18/20 History Stool Softner 1 tab PO DAILY PRN 03/18/20 03/18/20 History amLODIPine [Norvasc] 10 mg PO DAILY 03/18/20 03/18/20 History Allergies Allergy/AdvReac Type Severity Reaction Status Date / Time No Known Allergies Allergy Verified 03/18/20 09:29 Surgical - Exam Vital Signs Temp Pulse Resp BP Pulse Ox 97.9 F 65 18 137/69 97 03/19/20 07:43 03/19/20 07:43 03/19/20 07:43 03/19/20 07:43 03/19/20 07:43
[2020-03-19] MEDS ORDERED: PROPOFOL 10 MG/ML 20 ML VIAL IV ONE (09:15)
[2020-03-19 10:01] VITALS: RESP 16
--- NOTE | 2020-03-19 10:12 | P.PCN ---
Date of Procedure: 03/19/20 Description of Procedure: PREOPERATIVE DIAGNOSIS: Colonoscopy screening, initial Spina bifida Family history of colon cancer Family history malignant colon polyps POSTOPERATIVE DIAGNOSIS: Colonoscopy screening, initial Family history of colon cancer Family history malignant colon polyps Ascending colon adenoma Transverse colon adenoma Descending colon adenoma Sigmoid colon adenoma Rectal adenoma OPERATION: Colonoscopy to the ileocecal valve and appendiceal orifice, cecum Colonoscopy with multiple hot snare polypectomies SURGEON: Caroline White MD. ANESTHESIA: MAC. INDICATIONS: The patient is an 66-year-old male who presents family history of malignant colon polyps and personal history of colon polyps. Last colonoscopy 5 years. Benefits and risks were described and informed consent was obtained. DESCRIPTION OF PROCEDURE: The patient had undergone Suprep. He had been brought into the operating room and laid in the left lateral decubitus position. After adequate intravenous sedation, the rectum was examined with 2% lidocaine jelly. The prostate was unremarkable. External hemorrhoids were encountered. The rectal tone was loose consistent with history of spina bifida. No lesions were palpated in the rectal vault. An Olympus colonoscope was advanced until the cecum, ileocecal valve and appendiceal orifice were viewed. The prep was fair. He had a highly redundant sigmoid colon requiring abdominal pressure to advance the scope. No sigmoid diverticulosis was encountered. Multiple colonic polyps were found and snare polypectomy. No evidence of focal colitis was found. Retroflexion of the scope demonstrated grade 2 internal hemorrhoids without active bleeding or inflammatio n. The colon was desufflated. The patient had tolerated the procedure well. Withdrawal time was over 6 minutes. FINDINGS: Aronchick preparation quality scale 3 (1-5) Internal hemorrhoids, grade 2 External hemorrhoids, grade 2. No arteriovenous malformations. No sigmoid diverticulosis Removal of 5 polyps: - Snare polypectomy ascending colon, 5 mm tubulovillous adenoma polyp. - Snare polypectomy midtransverse colon, 8 mm flat villous adenoma polyp. - Snare polypectomy ascending colon, 10 mm flat villous adenoma polyp. - Snare polypectomy descending colon, 5 mm flat villous adenoma polyp. - Snare polypectomy rectum, 10 mm tubulovillous adenoma polyp. No focal colitis. RECOMMENDATIONS: Given severity of tubular adenomas, repeat colonoscopy 1 year, 2020 Plan - Discharge Summary Discharge Rx Participant: No New Discharge Prescriptions: Continue Potassium Chloride [Klor-Con 20] 20 meq PO DAILY Atorvastatin [Lipitor] 10 mg PO DAILY Metoclopramide [Reglan] 10 mg PO ACHS #30 tab Atenolol [Tenormin] 100 mg PO HS amLODIPine [Norvasc] 10 mg PO DAILY Lisinopril-Hctz 20-25 mg [Zestoretic 20-25] 1 tab PO BID Pantoprazole Sodium [Protonix] 40 mg PO BID Oxybutynin Chloride [Ditropan XL] 10 mg PO DAILY Stool Softner 1 tab PO DAILY PRN PRN Reason: Constipation Discharge Medication List Potassium Chloride [Klor-Con 20] 20 meq PO DAILY 07/15/17 [History] Atorvastatin [Lipitor] 10 mg PO DAILY 11/10/18 [History] Metoclopramide [Reglan] 10 mg PO ACHS #30 tab 11/23/18 [Rx] Atenolol [Tenormin] 100 mg PO HS 03/18/20 [History] Lisinopril-Hctz 20-25 mg [Zestoretic 20-25] 1 tab PO BID 03/18/20 [History] Oxybutynin Chloride [Ditropan XL] 10 mg PO DAILY 03/18/20 [History] Pantoprazole Sodium [Protonix] 40 mg PO BID 03/18/20 [History] Stool Softner 1 tab PO DAILY PRN 03/18/20 [History] amLODIPine [Norvasc] 10 mg PO DAILY 03/18/20 [History] Follow up Appointment(s)/Referral(s): Caroline White MD [STAFF PHYSICIAN] - As Needed Patient Instructions/Handouts: *Surgery [facility] - (Anesthesia) Endoscopy Discharge Instructions, Colorectal Polyps (DC), Colonoscopy (DC), High Fiber Diet (DC), Constipation (DC) Activity/Diet/Wound Care/Special Instructions: Repeat colonoscopy in one year, 2020 Discharge Disposition: HOME SELF-CARE
[2020-03-19 10:16] VITALS: BP 105/66; PULSE 55
== END 2020-03-19 10:44 | disposition home or self-care (01) ==
LOC: ORWHC2ENDO 07:26
PROVIDERS: ATTEND Surgery Plastic and Reconstructive Surgery
DX: Z12.11 Encounter for screening for malignant neoplasm of colon (principal); D12.2 Benign neoplasm of ascending colon; D12.3 Benign neoplasm of transverse colon; D12.4 Benign neoplasm of descending colon; D12.5 Benign neoplasm of sigmoid colon; D12.8 Benign neoplasm of rectum; K64.4 Residual hemorrhoidal skin tags; K64.1 Second degree hemorrhoids; Q43.8 Other specified congenital malformations of intestine; Q05.9 Spina bifida, unspecified; G82.20 Paraplegia, unspecified; E78.5 Hyperlipidemia, unspecified; I10 Essential (primary) hypertension; K21.9 Gastro-esophageal reflux disease without esophagitis; F41.9 Anxiety disorder, unspecified; F17.210 Nicotine dependence, cigarettes, uncomplicated; Z86.010 Personal history of colon polyps; Z86.718 Personal history of other venous thrombosis and embolism; Z87.2 Personal history of diseases of the skin and subcutaneous tissue; Z87.19 Personal history of other diseases of the digestive system; Z87.440 Personal history of urinary (tract) infections; Z96.0 Presence of urogenital implants; Z90.89 Acquired absence of other organs; Z98.890 Other specified postprocedural states; Z98.2 Presence of cerebrospinal fluid drainage device; Z87.898 Personal history of other specified conditions; Z79.899 Other long term (current) drug therapy; Z80.0 Family history of malignant neoplasm of digestive organs; Z82.49 Family history of ischemic heart disease and other diseases of the circulatory system; Z83.71 Family history of colonic polyps
CPT/HCPCS: 88305; 45385; J2704

== ENCOUNTER 2020-04-11 21:31 | Inpatient (IN) | payer MEDICARE, OTHER ==
--- NOTE | 2020-04-11 21:54 | ED ---
Abdominal Pain HPI - General Chief Complaint: Abdominal Pain Stated Complaint: Bowel Obstruction Time Seen by Provider: 04/11/20 21:43 Source: patient, EMS Mode of arrival: EMS Limitations: altered mental status, physical limitation - History of Present Illness Initial Comments: 54-year-old male patient with past medical history significant for spina bifida, hyperlipidemia, hypertension, current chronic indwelling Porter catheter presents to the emergency department today for evaluation of abdominal pain and bloating. Patient states he has had nausea and has had a couple episodes of vomiting today. Patient states symptoms feel similar to when he has had bowel obstruction in the past. He has had multiple abdominal surgeries. States he did have a bowel movement yesterday, a small bowel movement today at 6 PM. States he has been passing gas. He is reporting some shortness of breath and mild cough. Denies any fever or chills. Patient denies any recent rash, chest pain, abdominal pain, back pain, numbness, tingling, dizziness, weakness, hem aturia, dysuria, urinary urgency, urinary frequency, headache, visual changes, or any other complaints. - Related Data Home Medications Medication Instructions Recorded Confirmed Potassium Chloride [Klor-Con 20] 20 meq PO DAILY 07/15/17 04/11/20 Atorvastatin [Lipitor] 10 mg PO DAILY 11/10/18 04/11/20 Atenolol [Tenormin] 100 mg PO HS 03/18/20 04/11/20 Lisinopril-Hctz 20-25 mg 1 tab PO BID 03/18/20 04/11/20 [Zestoretic 20-25] Oxybutynin Chloride [Ditropan XL] 10 mg PO DAILY 03/18/20 04/11/20 Pantoprazole Sodium [Protonix] 40 mg PO BID 03/18/20 04/11/20 Stool Softner 1 tab PO DAILY PRN 03/18/20 04/11/20 amLODIPine [Norvasc] 10 mg PO DAILY 03/18/20 04/11/20 Previous Rx's Medication Instructions Recorded Metoclopramide [Reglan] 10 mg PO ACHS #30 tab 11/23/18 Allergies Allergy/AdvReac Type Severity Reaction Status Date / Time No Known Allergies Allergy Verified 04/11/20 23:35 Review of Systems ROS Statement: Those systems with pertinent positive or pertinent negative responses have been documented in the HPI. ROS Other: All systems not noted in ROS Statement are negative. Past Medical History Past Medical History: Deep Vein Thrombosis (DVT), Hyperlipidemia, Hypertension Additional Past Medical History / Comment(s): hx wounds-vj buttocks-currently not currently open,spina bifida, jifofkpvkwkqu-ylnqyalcum-wrmk w/c, constipa tion, "bowel blockages", requires digital removal of stool, "borderline cholesterol", chronic bladder infections- indwelling catheter, hx two bowel obstructions History of Any Multi-Drug Resistant Organisms: None Reported Past Surgical History: Adenoidectomy, Back Surgery, Tonsillectomy Additional Past Surgical History / Comment(s): lithotripsy, multiple leg,foot and toe surgeries to release tendons, colostomy with reversal as a child, 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, surgery for bowel obstruction 2019 x 2 Past Anesthesia/Blood Transfusion Reactions: No Reported Reaction Additional Past Anesthesia/Blood Transfusion Reaction / Comment(s): DIFF IV START Past Psychological History: Anxiety, Depression Smoking Status: Current every day smoker Past Alcohol Use History: None Reported Past Drug Use History: None Reported - Past Family History Sister(s) Family Medical History: Cancer Additional Family Medical History / Comment(s): colon/rectal Mother Family Medical History: Coronary Artery Disease (CAD) Father Family Medical History: Myocardial Infarction (MA) General Exam Limitations: altered mental status, physical limitation General appearance: alert, in no apparent distress, other (This is a well- developed, well-nourished adult male patient in no acute distress. Vital signs upon presentation are temperature 99.0F, pulse 98, respirations 18, blood pressure 145/99, pulse ox 94% on 2 L.) Eye exam: Present: normal appearance, PERRL, EOMI. Absent: scleral icterus, conjunctival injection, periorbital swelling ENT exam: Present: normal exam, normal oropharynx, mucous membranes moist Respiratory exam: Present: normal lung sounds bilaterally. Absent: respiratory distress, wheezes, rales, rhonchi, stridor Cardiovascular Exam: Present: regular rate, normal rhythm, normal heart sounds. Absent: systolic murmur, diastolic murmur, rubs, gallop, clicks GI/Abdominal exam: Present: soft, distended, tenderness (Mild generalized), normal bowel sounds. Absent: guarding, rebound, rigid Neurological exam: Present: alert, oriented X3, CN II-XII intact Psychiatric exam: Present: normal affect, normal mood Skin exam: Present: warm, dry, intact, normal color. Absent: rash Course Vital Signs 04/11/20 21:36 Temperature 99 F Pulse Rate 98 Respiratory 18 Rate Blood Pressure 145/99 O2 Sat by Pulse 94 L Oximetry Medical Decision Making - Medical Decision Making 54-year-old male patient has medical history significant for spina bifida with a chronic indwelling Porter catheter, multiple reveals follow-up instructions, presents to the emergency department today for evaluation for abdominal pain, distention, and vomiting. Physical examination did reveal abdominal distention, mild generalized tenderness. Labs reviewed and did reveal elevated white blood cell count at 26,000, CT abdomen and pelvis was obtained and did show evidence for possible mechanical small bowel obstruction versus severe ileus. They state this is not changed much compared to last exam however patient is experiencing increase in symptoms at this time. Chest x-ray did show evidence for pneumonia. He'll be started on Zosyn. We'll admit with NG tube and consult surgical services, he has had Dr. White in the past. I did discuss findings, results, plan with the patient, he is agreeable. Dr. Bowling is accepting. - Lab Data Result diagrams: 04/11/20 22:15 04/11/20 22:15 Lab Results 04/11/20 04/11/20 04/11/20 Range/Units 22:15 22:15 22:15 WBC 26.5 H (3.8-10.6) k/uL RBC 5.61 (4.30-5.90) m/uL Hgb 16.5 (13.0-17.5) gm/dL Hct 47.8 (39.0-53.0) % MCV 85.3 (80.0-100.0) fL MCH 29.5 (25.0-35.0) pg MCHC 34.6 (31.0-37.0) g/dL RDW 14.1 (11.5-15.5) % Plt Count 424 (150-450) k/uL MPV 7.4 Neutrophils % 89 % Lymphocytes % 4 % Monocytes % 6 % Eosinophils % 0 % Basophils % 1 % Neutrophils # 23.7 H (1.3-7.7) k/uL Lymphocytes # 1.0 (1.0-4.8) k/uL Monocytes # 1.5 H (0-1.0) k/uL Eosinophils # 0.1 (0-0.7) k/uL Basophils # 0.1 (0-0.2) k/uL PT 10.9 (9.0-12.0) sec INR 1.1 (<1.2) APTT 24.1 (22.0-30.0) sec Sodium (137-145) mmol/L Potassium (3.5-5.1) mmol/L Chloride (98-107) mmol/L Carbon Dioxide (22-30) mmol/L Anion Gap mmol/L BUN (9-20) mg/dL Creatinine (0.66-1.25) mg/dL Est GFR (CKD-EPI)AfAm (>60 ml/min/1.73 sqM) Est GFR (CKD-EPI)NonAf (>60 ml/min/1.73 sqM) Glucose (74-99) mg/dL Plasma Lactic Acid [place] (0.7-2.0) mmol/L Calcium (8.4-10.2) mg/dL Total Bilirubin (0.2-1.3) mg/dL AST (17-59) U/L ALT (4-49) U/L Alkaline Phosphatase (38-126) U/L Total Protein (6.3-8.2) g/dL Albumin (3.5-5.0) g/dL Amylase (30-110) U/L Lipase (23-300) U/L Urine Color [place] Urine Appearance Turbid (Clear) Urine pH 8.5 H (5.0-8.0) Ur Specific [place] 1.025 (1.001-1.035) Urine Protein 2+ H (Negative) Urine Glucose (UA) Negative (Negative) Urine Ketones Negative (Negative) Urine Blood Negative (Negative) Urine Nitrite Negative (Negative) Urine Bilirubin 1+ H (Negative) Urine Urobilinogen 3.0 (<2.0) mg/dL Ur Leukocyte Esterase Large H (Negative) Urine RBC 8 H (0-5) /hpf Urine WBC 27 H (0-5) /hpf Ur Squamous Epith Cells 3 (0-4) /hpf Triple Phos Crystals Many H (None) /hpf Urine Mucus Moderate H (None) /hpf Urine Sperm Moderate H (None) /hpf Coronavirus (PCR) (Not Detectd) 04/11/20 04/11/20 04/11/20 Range/Units 22:15 22:15 22:15 WBC (3.8-10.6) k/uL RBC (4.30-5.90) m/uL Hgb (13.0-17.5) gm/dL Hct (39.0-53.0) % MCV (80.0-100.0) fL MCH (25.0-35.0) pg MCHC (31.0-37.0) g/dL RDW (11.5-15.5) % Plt Count (150-450) k/uL MPV Neutrophils % % Lymphocytes % % Monocytes % % Eosinophils % % Basophils % % Neutrophils # (1.3-7.7) k/uL Lymphocytes # (1.0-4.8) k/uL Monocytes # (0-1.0) k/uL Eosinophils # (0-0.7) k/uL Basophils # (0-0.2) k/uL PT (9.0-12.0) sec INR (<1.2) APTT (22.0-30.0) sec Sodium 142 (137-145) mmol/L Potassium 3.3 L (3.5-5.1) mmol/L Chloride 102 (98-107) mmol/L Carbon Dioxide 29 (22-30) mmol/L Anion Gap 11 mmol/L BUN 32 H (9-20) mg/dL Creatinine 0.88 (0.66-1.25) mg/dL Est GFR (CKD-EPI)AfAm >90 (>60 ml/min/1.73 sqM) Est GFR (CKD-EPI)NonAf >90 (>60 ml/min/1.73 sqM) Glucose 188 H (74-99) mg/dL Plasma Lactic Acid [place] 2.3 H* (0.7-2.0) mmol/L Calcium 9.9 (8.4-10.2) mg/dL Total Bilirubin 0.7 (0.2-1.3) mg/dL AST 17 (17-59) U/L ALT 22 (4-49) U/L Alkaline Phosphatase 213 H (38-126) U/L Total Protein 7.6 (6.3-8.2) g/dL Albumin 4.6 (3.5-5.0) g/dL Amylase 48 (30-110) U/L Lipase 114 (23-300) U/L Urine Color Urine Appearance (Clear) Urine pH (5.0-8.0) Ur Specific [place] (1.001-1.035) Urine Protein (Negative) Urine Glucose (UA) (Negative) Urine Ketones (Negative) Urine Blood (Negative) Urine Nitrite (Negative) Urine Bilirubin (Negative) Urine Urobilinogen (<2.0) mg/dL Ur Leukocyte Esterase (Negative) Urine RBC (0-5) /hpf Urine WBC (0-5) /hpf Ur Squamous Epith Cells (0-4) /hpf Triple Phos Crystals (None) /hpf Urine Mucus (None) /hpf Urine Sperm (None) /hpf Coronavirus (PCR) Not Detected (Not Detectd) - Radiology Data Radiology results: report reviewed, image reviewed CT abdomen and pelvis without contrast was obtained. Report was reviewed in its entirety. Impression by Dr. Cuevas shows chronically dilated small bowel and stomach suggestive of severe ileus or partial mechanical obstruction also present on the old exam. Transition point identified. No free air. Retained fecal material in the left colon consistent with constipation. Chest x-ray is obtained. Report was reviewed in its entirety. Impression by Dr. Cuevas shows inspiration decreased compared to old exam. No heart failure. Interstitial pulmonary density could relate to pneumonia and atelectasis. This appears increased compared to old exam. Right-sided perihilar airspace pneumonia not excluded. Dilated air-filled stomach suggestive of gastroparesis. Disposition Clinical Impression: Small bowel obstruction, Pneumonia Disposition: ADMITTED IP TO THIS [facility] Condition: Serious Decision to Admit Reason: Admit from EC Decision Date: 04/11/20 Decision Time: 22:54
--- NOTE | 2020-04-11 22:17 | XR ---
EXAMINATION TYPE: XR chest 1V portable DATE OF EXAM: 04/11/2020 COMPARISON: 11/19/2018 HISTORY: Short of breath TECHNIQUE: Single view upright FINDINGS: There is coarsening of the pulmonary interstitial markings. There is poor inspiration. Ther e is no heart failure. There is apparent right-sided ventriculoperitoneal shunt catheter. IMPRESSION: inspiration decreased compared to old exam. No heart failure. Interstitial pulmonary den sity could relate to pneumonia and atelectasis. This appears increased compared to old exam. Right si de perihilar airspace pneumonia not excluded. Dilated air-filled stomach suggestive of gastroparesis.
[2020-04-11 22:30] LABS: Basophils # (A) 0.1 k/uL (0-0.2); Basophils % (A) 1 %; Eosinophils # (A) 0.1 k/uL (0-0.7); Eosinophils % (A) 0 %; HCT 47.8 % (39.0-53.0); HGB 16.5 gm/dL (13.0-17.5); Lymphocytes % (A) 4 %; MCH 29.5 pg (25.0-35.0); MCHC 34.6 g/dL (31.0-37.0); MCV 85.3 fL (80.0-100.0); Mean Platelet Volume 7.4; Monocytes # (A) 1.5 k/uL (0-1.0); Monocytes % (A) 6 %; Neutrophils # (A) 23.7 k/uL (1.3-7.7); Neutrophils % (A) 89 %; Platelet Count 424 k/uL (150-450); RBC 5.61 m/uL (4.30-5.90); RDW 14.1 % (11.5-15.5); WBC 26.5 k/uL (3.8-10.6)
--- NOTE | 2020-04-11 22:38 | CT ---
EXAMINATION TYPE: CT abdomen pelvis wo con DATE OF EXAM: 04/11/2020 COMPARISON: 11/13/2018 HISTORY: abdominal pain CT DLP: 518.6 mGycm Automated exposure control for dose reduction was used. Images were obtained from the diaphragm to the floor the pelvis with no contrast. FINDINGS: There is some interstitial infiltrates and subsegmental atelectasis in the lower lung gilman. There i s elevated right diaphragm. Heart size is normal. There is no pericardial effusion. There is right-si ded ventriculoperitoneal shunt catheter noted. The tip is in the right upper quadrant adjacent to the anterior right lobe of the liver. There is dilated air and fluid-filled stomach. There are multiple dilated small bowel loops that hansa ure up to 4.8 cm. There is retained fecal material in the left colon. There is 3 cm umbilical hernia that contains bowel but no incarceration. The small bowel is nondilated involving the terminal ileum. Transition point not identified. There is no evidence of free air. There is no ascites. Kidneys have normal size. There is no hydronephrosis. There is deformity of the hip joints consistent with hip dysplasia and osteoarthritis. There is thoracolumbar levoscoliotic deformity. There is almo st 90 degree angulation of the spine. There is multilevel lumbar spina bifida. There is Porter cathete r in the urinary bladder. Bladder is empty. I see no pelvic mass. IMPRESSION: Chronically dilated small bowel and stomach suggestive of severe ileus or partial mechanical obstruct ion also present on the old exam. Transition point not identified. No free air. Retained fecal materi al in the left colon consistent with constipation.
[2020-04-11 22:41] LABS: Appearance,Urine Turbid (Clear); Bilirubin,Urine 1+ (Negative); Blood,Urine Negative (Negative); Color,Urine Orange; Glucose,Urine (UA) Negative (Negative); INR 1.1 (<1.2); Ketones,Urine Negative (Negative); Leukocyte Esterase,Urine Large (Negative); Mucus,Urine Moderate /hpf; Nitrite,Urine Negative (Negative); PH, Urine 8.5 (5.0-8.0); Partial Thromboplastin Time 24.1 sec (22.0-30.0); Protein,Urine 2+ (Negative); Prothrombin Time 10.9 sec (9.0-12.0); RBC,Urine 8 /hpf (0-5); Specific Gravity,Urine 1.025 (1.001-1.035); Sperm,Urine Moderate /hpf; Squamous Epithelial Cell,Urine 3 /hpf (0-4); Triple Phosphate Crystal,Urine Many /hpf; WBC,Urine 27 /hpf (0-5)
[2020-04-11 22:42] LABS: ALT 22 U/L (4-49); AST 17 U/L (17-59); African American GFR (CKD) >90 (>60 ml/min/1.73 sqM); Albumin 4.6 g/dL (3.5-5.0); Alkaline Phosphatase 213 U/L (38-126); Amylase 48 U/L (30-110); Anion Gap 11 mmol/L; Blood Urea Nitrogen 32 mg/dL (9-20); Calcium 9.9 mg/dL (8.4-10.2); Carbon Dioxide 29 mmol/L (22-30); Chloride 102 mmol/L (98-107); Glucose 188 mg/dL (74-99); Lipase 114 U/L (23-300); Non-African American GFR(CKD) >90 (>60 ml/min/1.73 sqM); Potassium 3.3 mmol/L (3.5-5.1); Sodium 142 mmol/L (137-145); Total Bilirubin 0.7 mg/dL (0.2-1.3); Total Protein 7.6 g/dL (6.3-8.2)
[2020-04-11] MEDS ORDERED: ONDANSETRON 4 MG/2 ML VIAL IVP PRN (22:48)
[2020-04-11] MEDS ORDERED: MORPHINE SULFATE 4 MG/ML SYRINGE IV PRN (22:48)
[2020-04-11] MEDS ORDERED: NALOXONE 0.4 MG/ML 1 ML VIAL IV PRN (22:48)
[2020-04-11] MEDS ORDERED: PIPERACILLIN-TAZOBACTAM 3.375 GM in SODIUM CHLORIDE 0.9% 100 ML IVPB ONE (23:00)
[2020-04-11] MEDS: SODIUM CHLORIDE 0.9% 1,000 ML IV SCH (23:17)
[2020-04-12 06:12] LABS: Basophils # (A) 0.1 k/uL (0-0.2); Basophils % (A) 0 %; Eosinophils % (A) 0 %; HGB 16.3 gm/dL (13.0-17.5); Lymphocytes % (A) 5 %; MCHC 33.9 g/dL (31.0-37.0); MCV 85.4 fL (80.0-100.0); Mean Platelet Volume 7.2; Monocytes # (A) 1.7 k/uL (0-1.0); Monocytes % (A) 9 %; Neutrophils # (A) 16.7 k/uL (1.3-7.7); Neutrophils % (A) 85 %; Platelet Count 386 k/uL (150-450); RBC 5.62 m/uL (4.30-5.90); RDW 14.2 % (11.5-15.5); WBC 19.8 k/uL (3.8-10.6)
[2020-04-12] MEDS: PIPERACILLIN-TAZOBACTAM 3.375 GM in SODIUM CHLORIDE 0.9% 100 ML IVPB SCH ×3 (08:07→23:21)
[2020-04-12 08:10] LABS: ALT 20 U/L (4-49); AST 18 U/L (17-59); African American GFR (CKD) >90 (>60 ml/min/1.73 sqM); Albumin 4.5 g/dL (3.5-5.0); Alkaline Phosphatase 198 U/L (38-126); Anion Gap 14 mmol/L; Blood Urea Nitrogen 39 mg/dL (9-20); Calcium 9.8 mg/dL (8.4-10.2); Carbon Dioxide 28 mmol/L (22-30); Chloride 101 mmol/L (98-107); Glucose 163 mg/dL (74-99); Non-African American GFR(CKD) 87 (>60 ml/min/1.73 sqM); Potassium 3.5 mmol/L (3.5-5.1); Sodium 143 mmol/L (137-145); Total Bilirubin 0.8 mg/dL (0.2-1.3); Total Protein 7.6 g/dL (6.3-8.2)
--- NOTE | 2020-04-12 12:30 | P.GSCN ---
History of Present Illness Consult date: 04/12/20 Reason for Consult: Small bowel obstruction History of present illness: This a 54-year-old male who was admitted through the emergency room complaints of abdominal pain. His CAT scan shows evidence of bowel obstruction. Patient is a nasogastric tube placed overnight. He still has complaints of abdominal distention and pain. Past Medical History Past Medical History: Deep Vein Thrombosis (DVT), Hyperlipidemia, Hypertension Additional Past Medical History / Comment(s): hx wounds-vj buttocks-currently not currently open,spina bifida, msjftzdelhwzz-xghyrednwi-xurn w/c, co nstipation, "bowel blockages", requires digital removal of stool, "borderline cholesterol", chronic bladder infections- indwelling catheter, hx two bowel obstructions History of Any Multi-Drug Resistant Organisms: None Reported Past Surgical History: Adenoidectomy, Back Surgery, Tonsillectomy Additional Past Surgical History / Comment(s): lithotripsy, multiple leg,foot and toe surgeries to release tendons, colostomy with reversal as a child, 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, surgery for bowel obstruction 2019 x 2 Past Anesthesia/Blood Transfusion Reactions: No Reported Reaction Additional Past Anesthesia/Blood Transfusion Reaction / Comm: DIFF IV START Past Psychological History: Anxiety, Depression Smoking Status: Current every day smoker Past Alcohol Use History: None Reported Past Drug Use History: None Reported - Past Family History Sister(s) Family Medical History: Cancer Additional Family Medical History / Comment(s): colon/rectal Mother Family Medical History: Coronary Artery Disease (CAD) Father Family Medical History: Myocardial Infarction (MA) Medications and Allergies Home Medications Medication Instructions Recorded Confirmed Type Potassium Chloride [Klor-Con 20] 20 meq PO DAILY 07/15/17 04/11/20 History Atorvastatin [Lipitor] 10 mg PO DAILY 11/10/18 04/11/20 History Metoclopramide [Reglan] 10 mg PO ACHS #30 tab 11/23/18 04/11/20 Rx Atenolol [Tenormin] 100 mg PO HS 03/18/20 04/11/20 History Lisinopril-Hctz 20-25 mg 1 tab PO BID 03/18/20 04/11/20 History [Zestoretic 20-25] Oxybutynin Chloride [Ditropan XL] 10 mg PO DAILY 03/18/20 04/11/20 History Pantoprazole Sodium [Protonix] 40 mg PO BID 03/18/20 04/11/20 History Stool Softner 1 tab PO DAILY PRN 03/18/20 04/11/20 History amLODIPine [Norvasc] 10 mg PO DAILY 03/18/20 04/11/20 History Allergies Allergy/AdvReac Type Severity Reaction Status Date / Time No Known Allergies Allergy Verified 04/11/20 23:35 Surgical - Exam Vital Signs Temp Pulse Resp BP Pulse Ox 99 F 98 18 145/99 94 L 04/11/20 21:36 04/11/20 21:36 04/11/20 21:36 04/11/20 21:36 04/11/20 21:36 - General well developed, well nourished, no distress - Eyes PERRL - ENT normal pinna - Neck no masses - Respiratory normal expansion - Cardiovascular Rhythm: regular - Abdomen Mild diffuse tenderness. There is no rebound or guarding. Abdomen: soft Results - Labs 04/12/20 05:38 04/12/20 05:38 Abnormal Lab Results - Last 24 Hours (Table) 04/11/20 04/11/20 04/11/20 Range/Units 22:15 22:15 22:15 WBC 26.5 H (3.8-10.6) k/uL Neutrophils # 23.7 H (1.3-7.7) k/uL Monocytes # 1.5 H (0-1.0) k/uL Potassium 3.3 L (3.5-5.1) mmol/L BUN 32 H (9-20) mg/dL Glucose 188 H (74-99) mg/dL Plasma Lactic Acid [place] (0.7-2.0) mmol/L Magnesium (1.6-2.3) mg/dL Alkaline Phosphatase 213 H (38-126) U/L Urine pH 8.5 H (5.0-8.0) Urine Protein 2+ H (Negative) Urine Bilirubin 1+ H (Negative) Ur Leukocyte Esterase Large H (Negative) Urine RBC 8 H (0-5) /hpf Urine WBC 27 H (0-5) /hpf Triple Phos Crystals Many H (None) /hpf Urine Mucus Moderate H (None) /hpf Urine Sperm Moderate H (None) /hpf 04/11/20 04/12/20 04/12/20 Range/Units 22:15 01:11 05:38 WBC 19.8 H (3.8-10.6) k/uL Neutrophils # 16.7 H (1.3-7.7) k/uL Monocytes # 1.7 H (0-1.0) k/uL Potassium (3.5-5.1) mmol/L BUN (9-20) mg/dL Glucose (74-99) mg/dL Plasma Lactic Acid [place] 2.3 H* 2.4 H* (0.7-2.0) mmol/L Magnesium (1.6-2.3) mg/dL Alkaline Phosphatase (38-126) U/L Urine pH (5.0-8.0) Urine Protein (Negative) Urine Bilirubin (Negative) Ur Leukocyte Esterase (Negative) Urine RBC (0-5) /hpf Urine WBC (0-5) /hpf Triple Phos Crystals (None) /hpf Urine Mucus (None) /hpf Urine Sperm (None) /hpf 04/12/20 Range/Units 05:38 WBC (3.8-10.6) k/uL Neutrophils # (1.3-7.7) k/uL Monocytes # (0-1.0) k/uL Potassium (3.5-5.1) mmol/L BUN 39 H (9-20) mg/dL Glucose 163 H (74-99) mg/dL Plasma Lactic Acid [place] (0.7-2.0) mmol/L Magnesium 3.0 H (1.6-2.3) mg/dL Alkaline Phosphatase 198 H (38-126) U/L Urine pH (5.0-8.0) Urine Protein (Negative) Urine Bilirubin (Negative) Ur Leukocyte Esterase (Negative) Urine RBC (0-5) /hpf Urine WBC (0-5) /hpf Triple Phos Crystals (None) /hpf Urine Mucus (None) /hpf Urine Sperm (None) /hpf Microbiology - Last 24 Hours (Table) 04/11/20 22:15 Urine Culture - Preliminary Urine,Voided Diabetes panel 04/11/20 04/12/20 Range/Units 22:15 05:38 Sodium 142 143 (137-145) mmol/L Potassium 3.3 L 3.5 (3.5-5.1) mmol/L Chloride 102 101 (98-107) mmol/L Carbon Dioxide 29 28 (22-30) mmol/L BUN 32 H 39 H (9-20) mg/dL Creatinine 0.88 0.99 (0.66-1.25) mg/dL Glucose 188 H 163 H (74-99) mg/dL Calcium 9.9 9.8 (8.4-10.2) mg/dL AST 17 18 (17-59) U/L ALT 22 20 (4-49) U/L Alkaline Phosphatase 213 H 198 H (38-126) U/L Total Protein 7.6 7.6 (6.3-8.2) g/dL Albumin 4.6 4.5 (3.5-5.0) g/dL Calcium panel 04/11/20 04/12/20 Range/Units 22:15 05:38 Calcium 9.9 9.8 (8.4-10.2) mg/dL Albumin 4.6 4.5 (3.5-5.0) g/dL Pituitary panel 04/11/20 04/12/20 Range/Units 22:15 05:38 Sodium 142 143 (137-145) mmol/L Potassium 3.3 L 3.5 (3.5-5.1) mmol/L Chloride 102 101 (98-107) mmol/L Carbon Dioxide 29 28 (22-30) mmol/L BUN 32 H 39 H (9-20) mg/dL Creatinine 0.88 0.99 (0.66-1.25) mg/dL Glucose 188 H 163 H (74-99) mg/dL Calcium 9.9 9.8 (8.4-10.2) mg/dL Adrenal panel 04/11/20 04/12/20 Range/Units 22:15 05:38 Sodium 142 143 (137-145) mmol/L Potassium 3.3 L 3.5 (3.5-5.1) mmol/L Chloride 102 101 (98-107) mmol/L Carbon Dioxide 29 28 (22-30) mmol/L BUN 32 H 39 H (9-20) mg/dL Creatinine 0.88 0.99 (0.66-1.25) mg/dL Glucose 188 H 163 H (74-99) mg/dL Calcium 9.9 9.8 (8.4-10.2) mg/dL Total Bilirubin 0.7 0.8 (0.2-1.3) mg/dL AST 17 18 (17-59) U/L ALT 22 20 (4-49) U/L Alkaline Phosphatase 213 H 198 H (38-126) U/L Total Protein 7.6 7.6 (6.3-8.2) g/dL Albumin 4.6 4.5 (3.5-5.0) g/dL Assessment and Plan Assessment: Small bowel obstruction versus ileus. Patient will remain nothing by mouth with NG tube for decompression.
[2020-04-12] MEDS: SODIUM CHLORIDE 0.9% 1,000 ML IV SCH (16:15)
[2020-04-12] MEDS ORDERED: ALPRAZolam 0.25 MG TAB PO PRN (16:31)
--- NOTE | 2020-04-12 18:53 | HP ---
HISTORY AND PHYSICAL DATE OF SERVICE: 04/12/2020 CHIEF COMPLAINTS: Abdominal pain and bowel obstruction. HISTORY OF PRESENT ILLNESS: This 54-year-old gentleman with a past medical history of multiple medical problems being followed by Dr. Henry in the outpatient setting with a past medical history of DVT, history of hypertension, hyperlipidemia, history of buttock wound, history of spina bifida, history of myelodysplasia, history of paraplegia, history of adenoidectomy, history of back surgery, history of anxiety and depression, previously had surgery by Dr. White. The patient underwent exploratory laparotomy, lysis of adhesions, partial small-bowel obstruction in 2019. The patient also had chronic indwelling catheter. The patient is complaining of abdominal bloating, abdominal pain, couple episodes of vomiting. The patient came to [facility] and admitted for further evaluation and treatment. A CT scan of the abdomen and pelvis was done which showed evidence of dilated small bowel and stomach suggestive of ileus or mechanical obstruction. Retained fecal matter also was noted. A chest x-ray was also ordered which was reviewed personally by me and showed no acute abnormality, but some interstitial shadows. The patient admitted for further evaluation and treatment. There is no history of fever or rigors. No headache, loss of consciousness, seizures at this time. PAST MEDICAL HISTORY: History of spina bifida, history of hypertension, history of hyperlipidemia, history of DVT, history of myelodysplasia, history of paraplegia, history of constipation, history of adenoidectomy, back surgery, tonsillectomy. MEDICATIONS: Prior to admission, home medications are Norvasc, stool softener, Klor-Con, Protonix, Ditropan XL, Reglan, lisinopril Zestoretic, Lipitor and Tenormin. ALLERGIES: None. FAMILY HISTORY: History of CAD in the family. SOCIAL HISTORY: History of smoking, continued, ongoing. REVIEW OF SYSTEMS: ENT No history of diminished hearing or vision. CARDIOVASCULAR As mentioned earlier. RESPIRATORY As mentioned earlier. GI As mentioned earlier. No dysuria or hematuria. NERVOUS No numbness or weakness. ALLERGY/IMMUNOLOGY No asthma or hayfever. MUSCULOSKELETAL As mentioned earlier. HEMATOLOGY/ONCOLOGY Negative. ENDOCRINE No history of diabetes or hypothyroidism. CONSTITUTIONAL As mentioned earlier. DERMATOLOGY Negative. RHEUMATOLOGY Negative, PSYCHIATRY As mentioned earlier. PHYSICAL EXAMINATION: Alert and oriented x3. Pulse is 98, blood pressure 108/77, respiration 18, temperature 99 degrees, pulse ox 94% on 2 L. HEENT: Conjunctivae normal. Oral mucosa moist. NECK: No jugular venous distention. No lymph node enlargement. CARDIOVASCULAR: S1, S2, muffled. No S3, no S4, RESPIRATORY: Diminished breath sounds at the bases. Bilateral scattered rhonchi and crackles. ABDOMEN: Soft. Mild diffuse distention. Mild diffuse discomfort. No guarding, no rigidity. No mass palpable. No ascites. Bowel sounds diminished. LEGS: No edema, no swelling. NERVOUS SYSTEM: Higher functions mentioned earlier. Moves all four limbs. No focal motor or sensory deficits. LYMPHATICS: No lymph node in neck or axilla. SKIN: No rash. JOINTS: No active deforming arthropathy. LABS: WBC 19.8, sodium 143, potassium 3.5. Lactic acid is 2.3. COVID-19 is negative. UA shows some WBCs. ASSESSMENT: 1. Abdominal pain and vomiting with possible small bowel obstruction. 2. Possible acute urinary tract infection, present on admission with sepsis. 3. Hypokalemia. 4. History of deep vein thrombosis. 5. History of hypertension. 6. History of hyperlipidemia. 7. History of sacral wounds. 8. History of spina bifida. 9. History of myelodysplasia. 10.History of paraplegia. 11.History of chronic bladder infections, indwelling catheter. 12.History of adenoidectomy. 13.History of back surgery. 14.History of tonsillectomy. 15.History of lithotripsy. 16.History of colostomy with reversal as a child. 17.History of ventriculoperitoneal shunt. 18.History of bowel obstruction. 19.History of anxiety, depression. 20.History of nicotine dependence, continued, ongoing. 21.FULL CODE. RECOMMENDATIONS AND DISCUSSION: In this 54-year-old gentleman who presented with multiple complex medical issues, we will monitor the patient closely, continue the current management and symptomatic treatment. Will get surgical evaluation. Keep n.p.o. except medications at this time. Otherwise, I would recommend broad-spectrum IV antibiotics, cultures, resume the home medications, DVT prophylaxis, incentive spirometry. Prognosis guarded because of multiple complex medical issues. Further recommendations to follow. MMODL / IJN: [id number] /
[2020-04-12] MEDS: atenoloL 50 MG TAB PO SCH (22:33)
[2020-04-12] MEDS: LISINOPRIL-HCTZ 20-25 MG 1 EACH TAB PO SCH (22:33)
[2020-04-12] MEDS: HEPARIN SODIUM,PORCINE 5,000 UNIT/ML 1 ML VIAL SQ SCH (22:38)
[2020-04-12] MEDS: PANTOPRAZOLE 40 MG/10 ML VIAL IVP SCH (22:38)
[2020-04-13 05:15] LABS: Basophils % (A) 0 %; Eosinophils % (A) 0 %; HCT 43.8 % (39.0-53.0); HGB 14.8 gm/dL (13.0-17.5); Lymphocytes # (A) 1.5 k/uL (1.0-4.8); Lymphocytes % (A) 8 %; MCH 29.5 pg (25.0-35.0); MCHC 33.8 g/dL (31.0-37.0); MCV 87.1 fL (80.0-100.0); Mean Platelet Volume 7.2; Monocytes # (A) 1.6 k/uL (0-1.0); Monocytes % (A) 8 %; Neutrophils # (A) 16.2 k/uL (1.3-7.7); Neutrophils % (A) 83 %; Platelet Count 316 k/uL (150-450); RBC 5.03 m/uL (4.30-5.90); RDW 14.2 % (11.5-15.5); WBC 19.6 k/uL (3.8-10.6)
--- NOTE | 2020-04-13 06:38 | XR ---
EXAMINATION TYPE: XR chest 1V portable DATE OF EXAM: 04/13/2020 CLINICAL HISTORY: Difficulty breathing progress study. Possible bowel obstruction. TECHNIQUE: Single AP portable upright view of the chest is obtained. COMPARISON: Chest x-ray from 2 days earlier FINDINGS: Exam suboptimal due to portable technique and patient's large body habitus. New nasogastric tube is coiled and projects superiorly back to lower cervical level in the proximal e sophagus and needs to be repositioned. Persistent low lung volumes along with mild cardiomegaly and moderate central vascular congestion. No pleural effusion or pneumothorax. Osseous structures are demineralized with underlying scoliosis. Ga s dilated stomach remains present. IMPRESSION: Persistent low lung volumes and cardiomegaly with moderate central vascular congestion. N ew nasogastric tube coiled and needs to be repositioned. A Yellow level critical message alert has been initiated for Adrianne Wasserman via the [employer] System on 04/13/2020 6:36 AM. This message alert has been sent to Adrianne Wasserman via the preferences provided by the clinician for the receipt of Radiology Critical Findings. Message ID [id number].
[2020-04-13] MEDS: LISINOPRIL-HCTZ 20-25 MG 1 EACH TAB PO SCH ×2 (08:05→20:25)
[2020-04-13] MEDS: amLODIPine 10 MG TAB PO SCH (08:06)
[2020-04-13] MEDS: PIPERACILLIN-TAZOBACTAM 3.375 GM in SODIUM CHLORIDE 0.9% 100 ML IVPB SCH ×3 (08:06→22:44)
[2020-04-13] MEDS: PANTOPRAZOLE 40 MG/10 ML VIAL IVP SCH ×2 (08:06→20:19)
[2020-04-13] MEDS: HEPARIN SODIUM,PORCINE 5,000 UNIT/ML 1 ML VIAL SQ SCH ×2 (08:06→20:19)
[2020-04-13] MEDS: OXYBUTYNIN 10 MG TAB.ER.24 PO SCH (08:06)
[2020-04-13] MEDS: NICOTINE 14MG/24HR PATCH TRANSDERM SCH (08:14)
[2020-04-13 09:49] LABS: African American GFR (CKD) 118.2 (60.0-200.0); Anion Gap 13.4 mmol/L (4.00-12.00); BUN/Creat Ratio 57.5 Ratio (12.00-20.00); Calcium 9.4 mg/dL (8.7-10.3); Carbon Dioxide 28.6 mmol/L (21.6-31.8); Potassium 3.2 mmol/L (3.5-5.5)
[2020-04-13] MEDS: SODIUM CHLORIDE 0.9% 1,000 ML IV SCH ×2 (13:18→16:54)
[2020-04-13] MEDS ORDERED: Potassium Replacement Protocol 1 EACH MISC MISCELLANE PRN (13:44)
--- NOTE | 2020-04-13 14:04 | P.PN ---
Progress Note - Text Progress Note Date: 04/13/20 Patient states he feels better. He has had small flatus. On exam vital signs are stable. Abdomen soft. There is decreased distention. Resolving partial small bowel charge. Patient will have his nasogastric tube removed. We'll start him on clear liquids.
[2020-04-13] MEDS: POTASSIUM CHLORIDE 20 MEQ in WATER FOR INJECTION 1 100ML.BAG IVPB SCH ×2 (14:13→16:45)
[2020-04-13] MEDS: atenoloL 50 MG TAB PO SCH (20:20)
--- NOTE | 2020-04-14 01:02 | PN ---
PROGRESS NOTE DATE OF SERVICE: 04/13/2020 This 54-year-old gentleman admitted with abdominal pain as well as bowel obstruction, which had significant constipation. Surgery is following the patient closely. The patient has previously had disimpaction by Dr. White. According to the staff, NG tube is being removed today. PAST MEDICAL HISTORY: Reviewed. REVIEW OF SYSTEMS: CARDIOVASCULAR SYSTEM: No angina. RESPIRATORY SYSTEM: As mentioned earlier. GI: As mentioned earlier. : No dysuria. NERVOUS SYSTEM: As mentioned earlier. CURRENT MEDICATIONS: Current medications are reviewed and include: Xanax, Norvasc, Tenormin, Zestoretic, Protonix, Habitrol. Medications are reviewed. Zosyn IV. PHYSICAL EXAMINATION: Patient is alert and oriented x3. Pulse 90, blood pressure 89/59, respiration 17, temperature 99.7, pulse ox 93% on 2 L HEENT: Conjunctivae normal. NECK: No jugular venous distention. CARDIOVASCULAR: S1, S2 muffled. RESPIRATORY: Breath sounds diminished at the bases. A few scattered rhonchi. ABDOMEN: Soft. Mild diffuse distention. Nontender. No mass palpable. LEGS: No edema. No swelling. NERVOUS SYSTEM: No focal deficits. LABS: Sodium 146, potassium 3.2. Glucose 116. Plasma lactic acid is normal. WBC 19.6. UA noted. Cultures are negative so far. ASSESSMENT: 1. Abdominal pain with vomiting, possible acute small-bowel obstruction. 2. Acute urinary tract infection, present on admission with sepsis. 3. Hypokalemia. 4. History of deep vein thrombosis. 5. History of hypertension. 6. History of hyperlipidemia. 7. History of sacral wounds. 8. History of spina bifida. 9. History of myelodysplasia. 10.History of paraplegia. 11.History of chronic bladder infection, indwelling catheter. 12.History of adenoidectomy. 13.History of back surgery. 14.History of tonsillectomy. 15.History of lithotripsy. 16.History of colostomy with reversal as a child. 17.History of ventriculoperitoneal shunt. 18.History of bowel obstruction. 19.History of anxiety, depression. 20.History of nicotine dependence, continued ongoing. 21.FULL CODE. RECOMMENDATIONS AND DISCUSSION: In this 54-year-old gentleman who presented with multiple complex medical issues, we will monitor the patient closely. Continue the current medications, continue symptomatic treatment. Otherwise at this time I recommend to continue empiric antibiotics. Follow the cultures. Closely follow with Surgery. Resume the rest of the home medications. Guarded prognosis because of multiple complex medical issues. Further recommendations to follow. MMODL / IJN: [id number] /
[2020-04-14 02:13] LABS: Appearance,Urine Turbid (Clear); Bacteria,Urine Occasional /hpf; Bilirubin,Urine Negative (Negative); Blood,Urine Trace (Negative); Color,Urine Yellow; Glucose,Urine (UA) Negative (Negative); Ketones,Urine 2+ (Negative); Leukocyte Esterase,Urine Trace (Negative); Mucus,Urine Rare /hpf; Nitrite,Urine Negative (Negative); PH, Urine 6.5 (5.0-8.0); Protein,Urine Trace (Negative); RBC,Urine 21 /hpf (0-5); Specific Gravity,Urine 1.023 (1.001-1.035); Squamous Epithelial Cell,Urine 2 /hpf (0-4); Urobilinogen,Urine <2.0 mg/dL (<2.0); WBC,Urine 36 /hpf (0-5)
[2020-04-14] MEDS: SODIUM CHLORIDE 0.9% 1,000 ML IV SCH (05:24)
[2020-04-14 06:25] LABS: Basophils # (A) 0.1 k/uL (0-0.2); Basophils % (A) 0 %; Eosinophils # (A) 0.2 k/uL (0-0.7); Eosinophils % (A) 2 %; HCT 40.1 % (39.0-53.0); HGB 13.5 gm/dL (13.0-17.5); Lymphocytes # (A) 2.4 k/uL (1.0-4.8); Lymphocytes % (A) 16 %; MCH 29.3 pg (25.0-35.0); MCHC 33.7 g/dL (31.0-37.0); MCV 87.1 fL (80.0-100.0); Monocytes % (A) 7 %; Neutrophils # (A) 11.2 k/uL (1.3-7.7); Neutrophils % (A) 74 %; Platelet Count 300 k/uL (150-450); RBC 4.61 m/uL (4.30-5.90); RDW 14.1 % (11.5-15.5); WBC 15.1 k/uL (3.8-10.6)
[2020-04-14] MEDS: PIPERACILLIN-TAZOBACTAM 3.375 GM in SODIUM CHLORIDE 0.9% 100 ML IVPB SCH (09:48)
[2020-04-14] MEDS: PANTOPRAZOLE 40 MG/10 ML VIAL IVP SCH (09:49)
[2020-04-14 09:50] LABS: Anion Gap 6.6 mmol/L (4.00-12.00); BUN/Creat Ratio 48.33 Ratio (12.00-20.00); Calcium 8.8 mg/dL (8.7-10.3); Carbon Dioxide 26.4 mmol/L (21.6-31.8); Non-African American GFR(CKD) 114.8 (60.0-200.0); Potassium 3.1 mmol/L (3.5-5.5)
[2020-04-14] MEDS: NICOTINE 14MG/24HR PATCH TRANSDERM SCH (09:50)
[2020-04-14] MEDS: LISINOPRIL-HCTZ 20-25 MG 1 EACH TAB PO SCH (09:50)
[2020-04-14] MEDS: HEPARIN SODIUM,PORCINE 5,000 UNIT/ML 1 ML VIAL SQ SCH (09:50)
[2020-04-14] MEDS: OXYBUTYNIN 10 MG TAB.ER.24 PO SCH (09:50)
[2020-04-14] MEDS: amLODIPine 10 MG TAB PO SCH (09:50)
[2020-04-14] MEDS ORDERED: POTASSIUM CHLORIDE ER 20 MEQ TAB.ER PO STA (12:35)
--- NOTE | 2020-04-14 13:20 | P.PN ---
Subjective Progress Note Date: 04/14/20 CHIEF COMPLAINT: Abdominal pain HISTORY OF PRESENT ILLNESS: Patient is followed for possible small bowel obstruction versus ileus. His NG tube was removed yesterday. He has been passing gas. Denies any nausea or vomiting. No bowel movement. He is currently on a clear liquid diet. He reports improvement in his abdominal pain. He still has some residual pain along the right side of his abdomen. He is afebrile. WBC is 15.1 potassium 3.1 PHYSICAL EXAM: VITAL SIGNS: Reviewed GENERAL: Well-developed in no acute distress. HEENT: No sclera icterus. Extraocular movements grossly intact. Moist buccal mucosa. Head is atraumatic, normocephalic. Hears conversational speech. No nasal drainage. NECK: Supple without lymphadenopathy. CHEST: Non-labored respirations and equal bilateral excursions. CARDIOVASCULAR: Regular rate with regular rhythm. Palpable 2+ radial pulses. ABDOMEN: Soft. Nondistended. Mild tenderness with palpation of the right side of the abdomen MUSCULOSKELETAL: No clubbing or cyanosis. NEUROLOGIC: No focal or lateralizing signs. Cranial nerves II through XII hugo ssly intact. PSYCH: Appropriate affect. Alert and oriented to person, place and time. SKIN: Well perfused. Good skin turgor. ASSESSMENT: 1. Small bowel obstruction versus ileus 2. Hypokalemia 3. UTI PLAN: -Advance diet as tolerated -Potassium being replaced per protocol. We will resume patient's home scheduled daily potassium -Continue antibiotics for UTI per medicine -GI prophylaxis Protonix and DVT prophylaxis subcu heparin -Patient can be discharged home from surgical standpoint Physician Retail Advertising Sales Manager note has been reviewed by physician. Signing provider agrees with the documented findings, assessment, and plan of care. Objective - Vital Signs Vital signs: Vital Signs Temp 98.5 F 04/14/20 07:56 Pulse 58 L 04/14/20 07:56 Resp 20 04/14/20 07:56 BP 124/71 04/14/20 07:56 Pulse Ox 92 L 04/14/20 07:56 Intake & Output 04/13/20 04/14/20 04/14/20 18:59 06:59 18:59 Intake Total 0 Output Total 100 900 Balance -100 -900 Intake: Oral 0 Output: Gastric Drainage 100 Urine 900 Uretheral (Porter) 400 Other: Voiding Method Indwelling Catheter Indwelling Catheter Indwelling Catheter # Bowel Movements 0 - Labs CBC & Chem 7: 04/14/20 05:41 04/14/20 05:41 Labs: Abnormal Lab Results - Last 24 Hours (Table) 04/14/20 04/14/20 04/14/20 Range/Units 01:49 05:41 05:41 WBC 15.1 H (3.8-10.6) k/uL Neutrophils # 11.2 H (1.3-7.7) k/uL Potassium 3.1 L (3.5-5.5) mmol/L Chloride 110 H (96-109) mmol/L BUN 29.0 H (9.0-27.0) mg/dL BUN/Creatinine Ratio 48.33 H (12.00-20.00) Ratio Urine Protein Trace H (Negative) Urine Ketones 2+ H (Negative) Urine Blood Trace H (Negative) Ur Leukocyte Esterase Trace H (Negative) Urine RBC 21 H (0-5) /hpf Urine WBC 36 H (0-5) /hpf Urine Bacteria Occasional H (None) /hpf Urine Mucus Rare H (None) /hpf Microbiology - Last 24 Hours (Table) 04/14/20 01:49 Urine Culture - Preliminary Urine,Catheterized 04/11/20 22:15 Urine Culture - Final Urine,Voided Pseudomonas aeruginosa 04/12/20 16:50 Blood Culture - Preliminary Blood No Growth after 24 hours
--- NOTE | 2020-04-14 13:41 | CDI ---
Documentation Clarification Form Date: 04/14/2020 01:27:47 PM From: Analilia MorrisonWILL delacruz, CCDS Admit Date: 04/11/2020 11:03:00 PM Patient Name: Reggie Villagran Visit Number: [id number] Discharge Date: ATTENTION: The Clinical Documentation Specialists (CDI) and [facility] Coding Staff appreciate your assistance in clarifying documentation. Please respond to the clarification below the line at the bottom and electronically sign. The CDI & [facility] Coding staff will review the response and follow-up if needed. Please note: Queries are made part of the Legal Health Record. If you have any questions, please contact the author of this message via ITS. Dr. Adrianne Wasserman: Per the 04/12 History & Physical and subsequent Progress Note, the patient has Sepsis, Acute UTI and possible SBO. Per the 04/11 ED Note Patient's History: Spina bifida with a chronic indwelling Porter catheter and Chronic Bladder Infections. History/Risk Factors: Deep Vein Thrombosis, Hyperlipidemia, Hypertension, Wounds on Bilateral Buttocks - not currently open, Myelodysplasia, Paraplegic, Uses Wheelchair, Constipation, "bowel blockages", requires digital removal of stool, "borderline cholesterol", chronic bladder infections. Adenoidectomy, Back Surgery, Tonsillectomy, Lithotripsy, Multiple leg, foot and toe surgeries to release tendons, Colostomy with reversal as a child, Shunt to drain fluid from brain to stomach, surgery for bowel obstruction 2019 x 2. Anxiety, Depression, Current every day smoker Clinical Indicators: Presented to the ED on 04/11 with abdominal pain, altered mental status, nausea & vomiting. VS 04/11: WBC 26.5^, Neut 23.7^, K 3.3*, BUN 32^, Gluc 188^, Lactic Acid 2.3^^, 2.4^^; Alk Phos 213^. UA: [place], Turbid, pH 8.5^, 2+ Protein, 1+ Bilirubin, Large Esterase, RBC 8, WBC 27. Urine Culture 04/11: Final: Pseudomonas aeruginosa. Repeat Urine Culture 04/14: Pending final. Blood Culture 04/12: neg after 24 hrs. COVID NEGATIVE RAD 04/11: No heart failure. Interstitial pulmonary density could relate to pneumonia and atelectasis. This appears increased compared to old exam. Right side perihilar airspace pneumonia not excluded. Dilated air-filled stomach suggestive of gastroparesis. Treatment: IV Zosyn, IV fluid 1,000 mls @ 75 mls/hr, Heparin sq, IV Protonix In your professional opinion, can you please clarify the etiology of the UTI, if known? UTI related to Porter catheter UTI not related to Porter catheter Other condition, please specify Unable to determine If an infective organism is present, please specify cause and effect relationship if applicable: (Last Revision: August 2017) UTI related to Porter catheter MTDD
[2020-04-14 14:11] VITALS: BP 110/59; PULSE 59; RESP 16; TEMP 98.6
[2020-04-15] MEDS ORDERED: POTASSIUM CHLORIDE ER 20 MEQ TAB.ER PO SCH (09:00)
--- NOTE | 2020-04-15 16:35 | P.DS ---
Providers Date of admission: 04/11/20 23:03 Expected date of discharge: 04/14/20 Attending physician: Aristeo Bowling MD Consults: 04/11/20 22:49 Consult Physician Routine Consulting Provider: Caroline White Consult Reason/Comments: Small bowel obstruction vs ileus Do you want consulting provider notified?: Yes Primary care physician: Jose Henry [facility] Course: Final diagnosis Abdominal pain with vomiting, possible acute small bowel obstruction Acute urinary tract infection, present on admission with sepsis related to Porter catheter Hypokalemia history of deep vein thrombosis History of hypertension history of hyperlipidemia History of sacral wounds History of spina bifida history of myelodysplasia History of paraplegia history of chronic bladder infection, indwelling catheter History of adenoidectomy history back surgery History of tonsillectomy history of lithotripsy History of colostomy with reversal as a child History of bowel obstruction History of ventriculoperitoneal shunt history of anxiety, depression history of nicotine dependence, continued ongoing Full code Discharge disposition Patient is being discharged in a stable condition with guarded prognosis to home. Patient will follow-up with Dr. Henry in the outpatient setting upon discharge. Patient also instructed cannula with home care in the outpatient setting. Patient instructed to continue with oral antibiotics in the form of Cipro 500 mg twice daily for the next 5 days to complete the course. Total time taken is greater than 35 minutes. History of present illness This is a 54-year-old male who was recently admitted with abdominal pain as well as bowel obstruction with significant constipation and was being closely monitored. Surgery following the patient and patient underwent fecal disimpaction with surgery. Patient had NG tube briefly and has been removed and is tolerating clear liquids. Patient instructed to continue with clear liquids and advance slowly over the next few days. Patient was given Colace 100 mg twice daily along with Senokot daily. Patient will continue with oral antibiotics in the form of Cipro 500 mg twice daily for the next 5 days to complete the course. Urine cultures finalized showing pseudomonas aeruginosa. Currently no reports of chest pain, shortness of breath, or palpitations. Patient is afebrile. No reports of nausea or vomiting and patient is tolerating diet. Patient will be discharged home today. Guarded prognosis On exam vital signs are stable. Temp is 98.6F, pulse is 59, respirations are 16, blood pressure is 110/59, oxygen saturation is 92% on room air. Cardio S1, S2 are muffled. Respiratory system shows diminished breath sounds at the bases with no wheezing or rhonchi noted. Abdomen is soft and mildly tender on palpation. Nervous system shows no focal deficits. Please refer to medication reconciliation sheet for a list of medications. Patient Condition at Discharge: Stable Plan - Discharge Summary New Discharge Prescriptions: New Ciprofloxacin HCl [Cipro] 500 mg PO Q12HR #10 tablet Sennosides [Senokot] 8.6 mg PO DAILY 30 Days #30 tablet Continue Potassium Chloride [Klor-Con 20] 20 meq PO DAILY Atorvastatin [Lipitor] 10 mg PO DAILY Metoclopramide [Reglan] 10 mg PO ACHS #30 tab Atenolol [Tenormin] 100 mg PO HS amLODIPine [Norvasc] 10 mg PO DAILY Lisinopril-Hctz 20-25 mg [Zestoretic 20-25] 1 tab PO BID Pantoprazole Sodium [Protonix] 40 mg PO BID Oxybutynin Chloride [Ditropan XL] 10 mg PO DAILY Stool Softner 1 tab PO DAILY PRN PRN Reason: Constipation Discharge Medication List Potassium Chloride [Klor-Con 20] 20 meq PO DAILY 07/15/17 [History] Atorvastatin [Lipitor] 10 mg PO DAILY 11/10/18 [History] Metoclopramide [Reglan] 10 mg PO ACHS #30 tab 11/23/18 [Rx] Atenolol [Tenormin] 100 mg PO HS 03/18/20 [History] Lisinopril-Hctz 20-25 mg [Zestoretic 20-25] 1 tab PO BID 03/18/20 [History] Oxybutynin Chloride [Ditropan XL] 10 mg PO DAILY 03/18/20 [History] Pantoprazole Sodium [Protonix] 40 mg PO BID 03/18/20 [History] Stool Softner 1 tab PO DAILY PRN 03/18/20 [History] amLODIPine [Norvasc] 10 mg PO DAILY 03/18/20 [History] Ciprofloxacin HCl [Cipro] 500 mg PO Q12HR #10 tablet 04/14/20 [Rx] Sennosides [Senokot] 8.6 mg PO DAILY 30 Days #30 tablet 04/14/20 [Rx] Follow up Appointment(s)/Referral(s): [facility] [NON-STAFF] - 1 Week Jose Henry MD [Primary Care Provider] - 1-2 days Ambulatory/Diagnostic Orders: Basic Metabolic Panel [LAB.AMB] Time Frame: 2 Days, Location: None Selected Patient Instructions/Handouts: Urinary Tract Infection in Men (DC), Bowel Obstruction (DC) Activity/Diet/Wound Care/Special Instructions: ok for discharge Activity Limited until follow-up Follow-up with primary care provider upon discharge Continue with antibiotics until finished Continue stool softeners Continue current diet Discharge Disposition: HOME WITH HOME HEALTH SERVICES
== END 2020-04-14 17:59 | disposition home health service (06) | DRG 698 ==
LOC: EC 21:31 → 6NMEDSUR 23:03
PROVIDERS: ADMIT Internal Medicine; ATTEND Internal Medicine
PROC: 0D9670Z Drainage of Stomach with Drainage Device, Via Natural or Artificial Opening (ICD-10-PCS; principal; 2020-04-11)
DX: T83.518A Infection and inflammatory reaction due to other urinary catheter, initial encounter (principal); A41.9 Sepsis, unspecified organism; K56.600 Partial intestinal obstruction, unspecified as to cause; E87.6 Hypokalemia; E78.5 Hyperlipidemia, unspecified; D46.9 Myelodysplastic syndrome, unspecified; F17.200 Nicotine dependence, unspecified, uncomplicated; I10 Essential (primary) hypertension; F32.9 Major depressive disorder, single episode, unspecified; Z20.828 Contact with and (suspected) exposure to other viral communicable diseases; F41.9 Anxiety disorder, unspecified; Z79.899 Other long term (current) drug therapy; Z86.718 Personal history of other venous thrombosis and embolism; Z90.49 Acquired absence of other specified parts of digestive tract; Z90.89 Acquired absence of other organs; Z98.890 Other specified postprocedural states; Z80.0 Family history of malignant neoplasm of digestive organs; Z82.49 Family history of ischemic heart disease and other diseases of the circulatory system; Q05.9 Spina bifida, unspecified; Z98.2 Presence of cerebrospinal fluid drainage device
CPT/HCPCS: 36415; 43753; 71045; 74176; 80048; 80053; 81001; 82150; 83605; 83690; 83735; 83880; 85025; 85610; 85730; 87040; 87077; 87086; 87186; 87635; 96365; 96366; 99285

== ENCOUNTER 2020-05-29 12:51 | Emergency (ER) | payer MEDICARE, OTHER ==
[2020-05-29 12:56] VITALS: BP 132/91; PULSE 97; RESP 16; TEMP 97.1
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
== END 2020-05-29 14:40 | disposition home or self-care (01) ==
LOC: EC 12:51
DX: Z04.1 Encounter for examination and observation following transport accident (principal); G82.20 Paraplegia, unspecified; L89.90 Pressure ulcer of unspecified site, unspecified stage; E78.5 Hyperlipidemia, unspecified; I10 Essential (primary) hypertension; F17.200 Nicotine dependence, unspecified, uncomplicated; Z99.3 Dependence on wheelchair; Z79.899 Other long term (current) drug therapy; V49.9XXA Car occupant (driver) (passenger) injured in unspecified traffic accident, initial encounter; Y92.410 Unspecified street and highway as the place of occurrence of the external cause; Y93.89 Activity, other specified
CPT/HCPCS: 72170; 99284

== ENCOUNTER → 2021-10-26 | Outpatient (CLI) | payer MEDICARE, OTHER ==
--- NOTE | 2021-10-26 20:55 | CT ---
EXAMINATION TYPE: CT urogram wo/w con DATE OF EXAM: 10/26/2021 INDICATION: Hx: Bladder Augmentation Hx: Myelomeningocele CT DLP: 2587 mGy.cm Automated Exposure Control for Dose Reduction was Utilized. TECHNIQUE AND CONTRAST: CT scan of the abdomen and pelvis is performed without and with IV Contrast, as per CT urogram protoc ol. The patient injected with 100 ml mL of Isovue 370. 3-D reconstruction images were generated on an independent workstation and reviewed COMPARISON: CT dated 04/11/2020 FINDINGS: No definite radiodense urinary calculi. No hydroureter or hydronephrosis. Bilateral renal hypodensiti es likely representing renal cysts without gross suspicious feature. Mild urothelial thickening of th e renal pelvis bilaterally, nonspecific. Recommend correlation with urinalysis results including cyto logy. No gross ureteric lesion identified. Air and Porter catheter are seen within the urinary bladder. Circumferential wall thickening of the ur inary bladder mainly its anterior aspect which could be related to chronic cystitis however urothelia l tumor cannot be excluded. Further cystoscopy can be considered. Prostatic concretion. Unremarkable seminal vesicles. Unremarkable liver, gallbladder, spleen, pancreas and adrenals. Arterial atherosclerotic calcificatio ns with marked stenosis of the inferior aspect of the abdominal aorta. Marked atherosclerotic changes of the iliofemoral arteries. Grossly unremarkable stomach, duodenum and small bowel. Wall thickening of the rectum, please correlate clinically. Severe fecal loading of the sigmoid colon and remainder of the colon consistent with constipation. Subcentimeter retroperitoneal lymph nodes, possibly reactive. No sizable ascites. Bilateral fat-conta ining inguinal hernias. Fat-containing umbilical hernia. Left-sided scrotal hydrocele. Complete fatty infiltration of the pelvic, lower spinal and upper thigh muscles with signs of paraplegia and deform ity of the hip joints. Diffuse osteopenia. Kyphoscoliosis of the lumbar spine with spina bifida. Unre markable lung bases. IMPRESSION: Markedly thickened urinary bladder wall which could be related to chronic cystitis however underlying urothelial neoplasm cannot be excluded. Recommend correlation with urinalysis results including cyto logy. Further cystoscopy can be considered. Other findings as described above.
== END | disposition home or self-care (01) ==
LOC: RADCTMAIN 11:48
PROVIDERS: ATTEND Urology
DX: N32.89 Other specified disorders of bladder (principal)
CPT/HCPCS: 74178; 74400; Q9967